=== PATIENT | female | born 1960 | race Caucasian/White ===

== ENCOUNTER → 2018-08-22 | Outpatient (CLI) | payer OTHER ==
[~2018-08-22] MED LIST: DETROL LA4 MG PO; DICLOFENAC SODI75 MG PO; DOXYCYCLINE 10100 MG PO; LEVOTHYROXIN0.175 MG PO; NABUMETONE 500500 M1 PO; TRAMADOL 50 MG50 MG PO; VALIUM5 MG PO
== END ==
LOC: RAD 16:33
DX: M25.552 Pain in left hip (principal); M25.551 Pain in right hip; M46.1 Sacroiliitis, not elsewhere classified

== ENCOUNTER → 2018-09-30 | Outpatient (CLI) | payer OTHER ==
[~2018-09-30] VITALS: Ht 167.6 cm; Wt 115.7 kg
[~2018-09-30] MED LIST changes: +HYDROCHLOROTHIA25 M2 PO; +IRON325 PO; +LOSARTAN POTAS100 MG PO; +SYNTHROID200 MCG PO; +ZANTAC 150MG T150 MG PO
--- NOTE | 2018-10-03 17:56 | P ---
[facility] [place] [address] PROCEDURE REPORT Name: EVELINE HUITRON [facility] #: [id number] Admission: 09/30/18 ������������������ Attend Phys: Jag Enriquez MD Discharge: ������������������ Date of : 56 Report #: [id number] THIS REPORT FOR: //name// CC: Jag Martines MD DATE OF SERVICE: 09/30/2018 BRIEF HISTORY: The patient is a 58-year-old woman with upper abdominal pain, also she does use diclofenac. There is also history of gastric bypass for weight loss. PREOPERATIVE DIAGNOSES: Abdominal pain, use of nonsteroidals. POSTOPERATIVE DIAGNOSES: 1. Retained solids in the stomach consistent with gastroparesis. 2. Mild gastritis. 3. Surgical changes consistent with previous Елена-en-Y gastric bypass. MEDICATIONS: Deep sedation with propofol per anesthesia. SPECIMEN: Biopsies of gastritis. ESTIMATED BLOOD LOSS: 3 mL. PROCEDURE: EGD with biopsy. FINDINGS: Prior to propofol sedation, procedure of upper endoscopy was discussed with the patient as well as potential risks and its complications. She indicates she understands and desires to proceed. DESCRIPTION OF PROCEDURE: With the patient in left decubitus position, the Olympus video endoscope was inserted in the cervical esophagus under direct vision without difficulty. Examination of this organ to its entire length revealed normal esophageal mucosa down to the squamocolumnar junction. Squamocolumnar junction was inspected and noted to be unremarkable. There is no evidence of ulcers, erosions or significant hiatus hernia or mass lesions. The scope was advanced into the stomach. We encountered a moderate amount of retained solid material. It was liquidy and amorphous, but too much particulate material to be able to suction through the scope. Therefore, views of the gastric mucosa were very limited. Obvious ulceration could not be seen. Bleeding was not identified. Biopsies were obtained, very mild gastritis. The surgical anastomosis was widely patent. There was scattered debris down the jejunal limb as far as we passed the scope. There is no evidence of obstruction. No ulcers were seen in jejunum within the limits of the prep. At [facility] [address] [place] [address] PROCEDURE REPORT Name: EVELINE HUITRON Room #: REG [facility] HOMEJersey#: [id number] Admission: 09/30/18 ������������������ Attend Phys: Jag Enriquez MD Discharge: ������������������ Date of : 56 Report #: [id number] that point, the scope was slowly withdrawn and careful circumferential views confirmed the above findings. The patient tolerated the procedure well. CONDITION OF THE PATIENT UPON DISCHARGE: Following procedure, the patient drowsy, aroused, conversant and will be discharged to home when fully ambulatory. INSTRUCTIONS TO THE PATIENT AND FAMILY AT THE TIME OF DISCHARGE: The patient has had complaints of upper abdominal pain. She has been on diclofenac. The exam was limited because of retained food material. I cannot entirely exclude an ulcer. Cautioned her about use of nonsteroidals. She may continue to use ranitidine. Also, suggest low residue diet. We will have her return for followup in the office to further discuss. Gastroparesis may be contributing to some of her symptoms of pain. ��������������������������������������������� <ELECTRONICALLY SIGNED> ���������������������������������������� By: Jag Enriquez MD ��������������������������������������������� 10/03/18 1756 1207 [id number] Jag Enriquez MD /nt
--- NOTE | 2018-10-04 11:07 | PATH ---
[facility] [address] [place] [address] PATHOLOGY RPT PROCEDURE Name: EVELINE DUONG Room #: REG [facility] M.R.#: [id number] ������������������ Admission: 09/30/18 ������������������ Date of : 56 Discharge: Report #: [id number] Path Case #: [id number] [facility] Accession Number: [id number] . 01 Material submitted: . BX GASTRITIS . 01 Clinical history: . Pre-OP DX: GERD Post-OP DX: Gastroparesis, gastritis, s/p gastric bypass . 02 Diagnosis: Gastric mucosa, gastritis, endoscopic biopsy: - Mild chronic inflammation. - Negative for intestinal metaplasia or atrophy. - Negative for Helicobacter pylori (properly-controlled immunohistochemical stain performed). . (IUV:mml; 10/03/2018) QLM/10/03/2018 . 02 Electronically signed: . Marie Mendoza MD, Pathologist NPI- [id number] . 01 Gross description: . Received in formalin labeled "Eveline Duong, BX gastritis," are 3 segments of bran soft tissue measuring 0.9 x 0.6 x 0.2 cm in aggregate dimensions and ranging from 0.4 to 0.6 cm in maximum dimension. The specimen is submitted entirely in cassette A1. (TSD; 09/30/2018) TOB/TOB . 02 Pathologist provided ICD-10: K29.50 . 02 CPT . 842788, C01819 Specimen Comment: A courtesy copy of this report has been sent to Specimen Comment: [phone], . Specimen Comment: Report sent to / DR LINN Specimen Comment: A duplicate report has been generated due to demographic updates. Performed at: 01 [facility] [address] [id number] MD Bam Galvin MD Phone: [phone] [address] [place] [address] PATHOLOGY RPT PROCEDURE Name: EVELINE DUONG Room #: REG [facility].#: [id number] ������������������ Admission: 09/30/18 ������������������ Date of : 56 Discharge: Report #: [id number] Path Case #: [id number] Performed at: [address] [id number] MD Marie Mendoza MD Phone: [phone]
== END | disposition home or self-care (01) ==
LOC: GI 09-22 11:39
DX: K29.50 Unspecified chronic gastritis without bleeding (principal); K31.84 Gastroparesis; K21.9 Gastro-esophageal reflux disease without esophagitis; I10 Essential (primary) hypertension; D64.9 Anemia, unspecified; E03.9 Hypothyroidism, unspecified; Z90.49 Acquired absence of other specified parts of digestive tract; Z98.84 Bariatric surgery status; Z98.890 Other specified postprocedural states; Z79.899 Other long term (current) drug therapy; Z87.891 Personal history of nicotine dependence
CPT/HCPCS: 62110; 62900

== ENCOUNTER 2019-03-23 18:59 | Emergency (ER) | payer OTHER ==
[~2019-03-23] VITALS: Ht 165.1 cm; Wt 108.0 kg
--- NOTE | ~2019-03-23 | EMS ---
[address] [address] EMS Patient Care Report Name: EVELINE HUITRON Room #: DEP ROLLY Newman#: [id number] Admission: 03/23/19 ������������������ Attend Phys: Discharge: 03/23/19 ������������������ Date of : 56 Report #: [id number] THIS REPORT FOR: //name// Report Transmitted: 03/27/2019 09:19 EMS Care Summary [facility] MED-ACT Incident [id number] @ 03/23/2019 18:33 Incident Location [address] [place] [address] Patient EVELINE HUITRON Female, 59 Years 1960 Patient Address [address] [place] [address] Patient History Hypertension,Thyroid Disease, Patient Allergies No known allergies, Patient Medications Zantac, Synthroid, Hydrochlorothiazide (Hctz), Chief Complaint right shoulder pain Disposition Transported No Lights/Carlos Dispatch Reason Falls Transported To [facility] Narrative [id number] [place] [facility] [place] reported injuries after a fall. Pt reported that she was walking in [facility] when she tripped and fell [address] [address] EMS Patient Care Report Name: EVELINE HUITRON Room #: DEP Trent#: [id number] Admission: 03/23/19 ������������������ Attend Phys: Discharge: 03/23/19 ������������������ Date of : 56 Report #: [id number] to the stone floor. Pt denied any head trauma, loss of consciousness, neck or back pain. Pt c/o right shoulder pain that radiates down into wrist. Pt requested EMS transport to ED for evaluation. Pt presented lying prone on floor of [facility]. Pt alert and oriented, answering questions appropriately and without difficulty. PE as documented. ABC intact, PE, HPI-> pt was rotated onto sheet supporting her right shoulder and lifted to cot-> unit, VS, [facility] contacted. Pt reported no changes during transport. Pt placed in room 11 upon arrival and report given to RN. Initial Vitals @18:41P: 62,R: 16,BP: 138/90,Pain: 2/10,GCS: 15,SpO2: 97,Revised Trauma: 12, @18:53P: 64,R: 16,BP: 136/76,Pain: 2/10,GCS: 15,SpO2: 98,Revised Trauma: 12, Assessments @18:41MENTAL:Person Oriented,Time Oriented,Place Oriented,Event Oriented,SKIN:HEENT:Head/Face: No Abnormalities,Neck/Airway: No Abnormalities,LUNG SOUNDS:General: No Abnormalities,ABDOMEN:General: No Abnormalities,PELVIS//GI:EXTREMITIES:Right Arm: Other,Left Arm: No Abnormalities,Left Leg: No Abnormalities,Right Leg: No Abnormalities,PULSE:Radial: 2+ Normal,NEURO:No Abnormalities, Impression Injury Timeline 18:32,Call Received 18:32,Psap Call 18:33,Dispatched 18:34,En Route 18:37,On Scene 18:39,At Patient 18:41,BP: 138/90 M,PULSE: 62,RR: 16 R,SPO2: 97 Ox,ETCO2: ,BG: ,PAIN: 2,GCS: 15, 18:46,Depart Scene 18:53,BP: 136/76 M,PULSE: 64,RR: 16 R,SPO2: 98 Ox,ETCO2: ,BG: ,PAIN: 2,GCS: 15, 18:56,At Destination 19:13,Call Closed Disclaimer v1.1 Copyright 2019 [employer] This EMS Care Summary contains data elements from the applicable legal record (which may be displayed differently). It is designed to provide pertinent information for the following purposes: continuity of care, clinical quality, and state data reporting. The complete legal record is available to ED staff [address] [address] EMS Patient Care Report Name: EVELINE HUITRON Room #: DEP ROLLY Newman#: [id number] Admission: 03/23/19 ������������������ Attend Phys: Discharge: 03/23/19 ������������������ Date of : 56 Report #: [id number] and administrators of the receiving hospital in [employer] Patient Tracker. All data is provided "as is."
[2019-03-23] MEDS ORDERED: TYLENOL EXTRA500 MG PO (20:02)
[2019-03-23 20:22] VITALS: BP 121/51
== END 2019-03-23 20:22 | disposition home or self-care (01) ==
LOC: ER 18:59
DX: S20.211A Contusion of right front wall of thorax, initial encounter (principal); M25.511 Pain in right shoulder; I10 Essential (primary) hypertension; K21.9 Gastro-esophageal reflux disease without esophagitis; E03.9 Hypothyroidism, unspecified; Z90.49 Acquired absence of other specified parts of digestive tract; Z98.84 Bariatric surgery status; Z86.2 Personal history of diseases of the blood and blood-forming organs and certain disorders involving the immune mechanism; Z98.890 Other specified postprocedural states; W18.39XA Other fall on same level, initial encounter; Y93.89 Activity, other specified; Y92.26 Movie house or cinema as the place of occurrence of the external cause; Y99.8 Other external cause status

== ENCOUNTER → 2019-03-30 | Outpatient (CLI) | payer OTHER ==
[~2019-03-30] MED LIST changes: +TYLENOL EXTRA500 MG PO
== END ==
LOC: NUC 02:11
DX: Z13.820 Encounter for screening for osteoporosis (principal); M81.0 Age-related osteoporosis without current pathological fracture; M85.852 Other specified disorders of bone density and structure, left thigh; M85.851 Other specified disorders of bone density and structure, right thigh; Z78.0 Asymptomatic menopausal state

== ENCOUNTER → 2019-06-15 | Outpatient (CLI) | payer OTHER | LOC: MRI 10:21 | DX: S43.431A Superior glenoid labrum lesion of right shoulder, initial encounter (principal); S46.091A Other injury of muscle(s) and tendon(s) of the rotator cuff of right shoulder, initial encounter; M19.011 Primary osteoarthritis, right shoulder; X58.XXXA Exposure to other specified factors, initial encounter; Y93.89 Activity, other specified; Y92.89 Other specified places as the place of occurrence of the external cause; Y99.8 Other external cause status ==

== ENCOUNTER → 2019-07-17 | Outpatient (CLI) | payer OTHER | LOC: RAD 12:47 | DX: M47.816 Spondylosis without myelopathy or radiculopathy, lumbar region (principal); M41.86 Other forms of scoliosis, lumbar region; M43.8X6 Other specified deforming dorsopathies, lumbar region; Z90.49 Acquired absence of other specified parts of digestive tract ==

== ENCOUNTER → 2019-09-11 | Outpatient (CLI) | payer OTHER | LOC: MRI 10:10 | DX: M51.36 Other intervertebral disc degeneration, lumbar region (principal); M48.061 Spinal stenosis, lumbar region without neurogenic claudication; M41.86 Other forms of scoliosis, lumbar region; M25.78 Osteophyte, vertebrae ==

== ENCOUNTER → 2019-10-18 | Outpatient (CLI) | payer OTHER | LOC: SJCVCIMAG 10:22 | DX: I08.1 Rheumatic disorders of both mitral and tricuspid valves (principal); I10 Essential (primary) hypertension; Z79.899 Other long term (current) drug therapy ==

== ENCOUNTER → 2019-11-06 | Outpatient (CLI) | payer OTHER ==
[~2019-11-06] VITALS: Ht 167.6 cm; Wt 102.1 kg
[~2019-11-06] MED LIST changes: +CALCIUM + VITA1 EACH PO; +CALTRATE 600 +1 EAC1 PO; +COZAAR 25 MG TA25 M1 PO; +EVISTA60 MG PO; +LEVO-T100 MCG PO; -LOSARTAN POTAS100 MG PO; +OMEPRAZOLE40 MG PO; +PRESERVISION A1 EAC2 PO; -SYNTHROID200 MCG PO; +TIROSINT88 MCG PO; +TURMERIC500 M2 PO
--- NOTE | ~2019-11-06 | HPC ---
[facility] [place] [address] PAIN MANAGEMENT CONSULTATION Name: EVELINE HUITRON Room #: REG DELMI Jorge.#: [id number] Admission: 11/06/19 Attend Phys: Qasim Parker MD Discharge: Date of : 56 Report #: [id number] THIS REPORT FOR: cc: Rey Martines,Qasim Campbell MD ~ CC: Qasim Martines MD DATE OF SERVICE: 11/06/2019 CHIEF COMPLAINT: Low back pain without radiation. HISTORY OF PRESENT ILLNESS: The patient is a pleasant 59, I am seeing today at the request of Dr. Martines. She has had chronic pain in her low back that is increasing in severity over the last year. She scores her intensity is 6-7/10. She denies any symptoms whatsoever into her legs. Pain is worse with standing and weightbearing activities, any lifting or carrying. She does get some relief with lying down or sitting. She describes it as an ache, sharp, gnawing constant pain. MEDICATIONS: Hydrochlorothiazide, levothyroxine, raloxifene, Detrol-LA, losartan, and omeprazole. ALLERGIES: None. SUPPLEMENTS: Caltrate, iron tablets, turmeric, preserve vision and AREDS 2. REVIEW OF SYSTEMS: Significant for blurred vision, frequent cough, shortness of breath, wheezing, loss of appetite, frequent diarrhea, rectal bleeding, difficulty with urinary stream, memory loss, confusion, depression, and insomnia. PAST MEDICAL HISTORY: Gastroesophageal reflux, arthritis, hypothyroidism, hyperlipidemia, obesity, and rosacea. PAST SURGICAL HISTORY: Cholecystectomy, gastric bypass, and umbilical hernia repair. FAMILY HISTORY: Positive for father with coronary artery disease and mother with lupus. SOCIAL HISTORY: She denies use of tobacco, quitting in 1995. She denies use of alcohol. [facility] [address] [place] [address] PAIN MANAGEMENT CONSULTATION Name: EVELINE HUITRON Rahul Room #: REG DELMI GrayShena#: [id number] Admission: 11/06/19 Attend Phys: Qasim Parker MD Discharge: Date of : 56 Report #: [id number] PHYSICAL EXAMINATION: GENERAL: Pleasant female, alert and oriented. She gives a good history. VITAL SIGNS: Blood pressure is 111/51, heart rate 89, respirations 20, and O2 sat 98%. NECK: Supple. CHEST: Clear. CARDIAC: Rhythm was regular. I could not appreciate a murmur, although she has been told that she has a "leaky valve." ABDOMEN: Obese. MUSCULOSKELETAL: Her gait is antalgic. Examination of the spine reveals slight rotational scoliosis. This is also seen on the MRI and noted. The curvature centered at L3-L4. She has pain with rotational movements and lateral tilt, but minimal pain with back extension. Most notable on her spinal exam is a lack of pain and tenderness along the axial spine and significant bilateral sacroiliac joint tenderness. In the supine position, there is pain in the sacroiliac joints with BONIFACIO testing. No pain in the hips. IMAGING STUDIES: X-rays reviewed show degenerative disk disease and lumbar spondylosis, but no evidence of central canal stenosis or neural foraminal narrowing of the significant nature. IMPRESSION: Sacroiliac joint pain, bilateral. The exam and history correlate with sacroiliac joint as the primary pain generator. Injections may be both therapeutic and diagnostic. Preauthorization will be required. I have asked for bilateral sacroiliac joint injections, which will be performed with small amount of triamcinolone at followup visit. Procedure was explained, risks, and benefits. We will plan to see her back in the pain clinic as soon as we have received preauthorization from her insurance company to go forward. I did discuss the importance of remaining active and exercise as an important tool and managing sacroiliac joint pain. Follow up exercise will be provided based upon the results of her therapeutic/diagnostic injections. By: 1620 1706 Qasim Parker MD /nt
[2019-11-06 09:21] VITALS: BP 111/51
--- NOTE | 2019-11-06 10:03 | NUR ---
Pain Clinic Assessment: 1. History of Osteoarthritis: Left Lower Extremity Right Lower Extremity History of Rheumatoid Arthritis: Not Applicable 2. Height: 5 ft. 6 in. 167.6 cm. Weight: 225.0 lb. oz. 102.060 kg. Patient's BMI: 36.3 3. Vital Signs: BP: 111/51 Pulse: 89 Resp: 20 Temp: 02 Sat: 98 ECG Mon: 4. Pain Intensity: 6-7 5. Fall Risk: Dizziness: Y Needs help standing or walking: N Fallen in the last 3 months: N Fall risk comments: 6. Patient on Blood Thinner: None 7. History of Hypertension: Y 8. Opioid Therapy greater than 6 weeks: N Opiate Contract Signed: 9. Risk Assessment Tool Provided: Opioid Risk Tool 10. Functional Assessment Tool: LOW 11. Recreational Drug Use: Never Drug Type: Tobacco Use: Former Smoker Tobacco Type: Cigarettes Amount or Packs/day: 1-2 How Many Years: 15 Alcohol Use: Yes Frequency: Monthly Quant: 1-2
== END ==
LOC: PAIN 06:52
DX: M54.5 Low back pain (principal); M25.50 Pain in unspecified joint; Z91.048 Other nonmedicinal substance allergy status; Z88.5 Allergy status to narcotic agent; Z88.8 Allergy status to other drugs, medicaments and biological substances; Z79.899 Other long term (current) drug therapy

== ENCOUNTER → 2019-11-21 | Outpatient (CLI) | payer OTHER ==
[~2019-11-21] VITALS: Ht 167.6 cm; Wt 101.2 kg
[~2019-11-21] MED LIST changes: +LASIX 40 MG TAB40 MG PO
[2019-11-21 08:32] VITALS: BP 113/61
--- NOTE | 2019-11-21 08:42 | NUR ---
Pain Clinic Assessment: 1. History of Osteoarthritis: Left Lower Extremity Right Lower Extremity History of Rheumatoid Arthritis: DENIES 2. Height: 5 ft. 6 in. 167.6 cm. Weight: 223.2 lb. oz. 101.243 kg. Patient's BMI: 36.0 3. Vital Signs: BP: 113/61 Pulse: 90 Resp: 16 Temp: 02 Sat: 100 ECG Mon: 4. Pain Intensity: 6 5. Fall Risk: Dizziness: N Needs help standing or walking: N Fallen in the last 3 months: N Fall risk comments: 6. Patient on Blood Thinner: None 7. History of Hypertension: Y 8. Opioid Therapy greater than 6 weeks: N Opiate Contract Signed: 9. Risk Assessment Tool Provided: 2-low 10. Functional Assessment Tool: 11. Recreational Drug Use: Never Drug Type: Tobacco Use: Former Smoker Tobacco Type: Amount or Packs/day: How Many Years: Alcohol Use: Yes Frequency: Special Occasions Quant:
--- NOTE | 2019-11-21 18:18 | HPC ---
[facility] [place] [address] PAIN MANAGEMENT CONSULTATION Name: EVELINE HUITRON Room #: REG DELMI GrayJossJersey.#: [id number] Admission: 11/21/19 Attend Phys: Qasim Parker MD Discharge: Date of : 56 Report #: [id number] THIS REPORT FOR: cc: Rey Martines,Qasim Campbell MD ~ CC: Qasim Martines MD DATE OF SERVICE: 11/21/2019 Followup visit for low back pain, sacroiliac joint discomfort. The patient returns to pain clinic today for her bilateral sacroiliac injections. I saw her last on 11/06/2019. We received preauthorization to proceed with these injections and we have discussed injections, risks and benefits. I also spoke with her for some time about the importance of ongoing daily exercise. Much of her pain probably is also related to myofascial tension that developed as a result of the underlying pain mechanisms. We talked about Manuel's flexion exercises and other daily exercises that she can do to help get those muscles in motion. I even demonstrated for her some chair exercises. I have reviewed her records from less than 10 days ago. There have been no significant changes. We will proceed today with the epidural injection. On physical examination, she is pleasant, alert and oriented, without signs of overmedication. She is alert and oriented. Her blood pressure 113/61, heart rate 90, respirations 16. Her gait is antalgic. She has range of motion discomfort, tenderness across her sacroiliac joints bilaterally with localized discomfort. IMPRESSION: Bilateral sacroiliac joint dysfunction and pain. PROCEDURE: Bilateral sacroiliac injections under fluoroscopic guidance. After informed consent, she was taken to fluoroscopic suite, placed prone, skin prepped with ChloraPrep. Skin anesthetized over the SI joint, first on the left. A 22-gauge spinal needle was advanced into the sacroiliac joint without difficulty. It was repositioned until an arthrogram was achieved with 0.25 mL of Omnipaque. It was followed by 2 mL of 0.5% bupivacaine and 40 mg of triamcinolone. Needle was removed. I repeated the injection in a mirror image fashion on the right and there were no complications. She tolerated the bilateral injections well. There were no complications from the recovery room. [address] [address] PAIN MANAGEMENT CONSULTATION Name: EVELINE HUITRON Room #: REG CL Trent#: [id number] Admission: 11/21/19 Attend Phys: Qasim Parker MD Discharge: Date of : 56 Report #: [id number] Her pain was reduced at discharge and we will plan to see her back on an as-needed basis sometime in the next 2-3 months. We did stress again the importance of exercise as a long-term need to keep her pain under good control. <ELECTRONICALLY SIGNED> By: Qasim Parker MD 11/21/19 1818 1011 1206 Qasim Parker MD /nt
== END | disposition home or self-care (01) ==
LOC: PAIN 06:47
DX: M53.3 Sacrococcygeal disorders, not elsewhere classified (principal); G89.29 Other chronic pain; Z98.890 Other specified postprocedural states; Z79.899 Other long term (current) drug therapy

== ENCOUNTER 2020-03-04 16:15 | Inpatient (IN) | payer OTHER ==
[~2020-03-04] VITALS: Ht 167.6 cm; Wt 101.1 kg
[2020-03-04 16:24] VITALS: BP 87/40
[2020-03-04] MEDS ORDERED: DULOXETINE HCL60 MG PO (16:39)
[2020-03-04] MEDS ORDERED: METAXALONE800 MG PO (16:40)
[2020-03-04 16:54] LABS: BASOPHILS 0.7 % (0.0-2.0); EOSINOPHILS 0.2 % (0.0-3.0); HEMOGLOBIN 8.1 gm/dL (12.0-15.0); MCHC 31.2 g/dL (28.0-37.0); MCV 70.7 fL (80.0-100.0); MONOCYTES 5.4 % (1.0-8.0); PLATELET COUNT 311 thou/uL (150-400); POLYS 88.7 % (36.0-66.0); RBC 3.68 mil/uL (4.20-5.00); RDW 17.9 % (10.5-14.5); WBC 7.9 thou/uL (4.0-11.0)
[2020-03-04 16:55] LABS: ANION GAP 9 mmol/L (7-16); BUN 22 mg/dL (7-18); CALCIUM 7.9 mg/dL (8.5-10.1); CHLORIDE 102 mmol/L (98-107); CO2 25 mmol/L (21-32); CREATININE 1.4 mg/dL (0.6-1.0); GLUCOSE 133 mg/dL (74-106); POTASSIUM 3.8 mmol/L (3.5-5.1); SODIUM 136 mmol/L (136-145)
[2020-03-04 17:04] LABS: MAGNESIUM 1.6 mg/dL (1.8-2.4); TROPONIN-I <0.06 ng/mL (<0.06)
[2020-03-04 17:57] LABS: ANISOCYTOSIS 1+; MACROCYTES FEW; MICROCYTES FEW
[2020-03-04 17:58] LABS: POIKILOCYTOSIS SLIGHT; POLYCHROMASIA OCCASIONAL; SCHISTOCYTES OCCASIONAL
[2020-03-04 17:59] LABS: HYPOCHROMASIA SLIGHT
[2020-03-05 03:23] LABS: ABSOLUTE NEUTROPHILS 3.8 thou/uL (1.4-8.2); BASOPHILS 0.1 % (0.0-2.0); EOSINOPHILS 1.2 % (0.0-3.0); HEMATOCRIT 22.9 % (37.0-47.0); LYMPHOCYTES 16.9 % (24.0-44.0); MCH 21.7 pg (26.0-34.0); MCHC 30.7 g/dL (28.0-37.0); MCV 70.6 fL (80.0-100.0); MONOCYTES 8.9 % (1.0-8.0); PLATELET COUNT 259 thou/uL (150-400); POLYS 72.9 % (36.0-66.0); RBC 3.25 mil/uL (4.20-5.00); RDW 17.7 % (10.5-14.5); WBC 5.2 thou/uL (4.0-11.0)
[2020-03-05 03:39] LABS: CALCIUM 7.9 mg/dL (8.5-10.1); CREATININE 1.3 mg/dL (0.6-1.0); POTASSIUM 3.3 mmol/L (3.5-5.1)
--- NOTE | 2020-03-05 08:18 | EKG ---
[facility] [place] [address] ELECTROCARDIOGRAM REPORT Name: EVELINE HUITRON Room #: 170-4 ADM IN M.R.#: [id number] Admission: 03/04/20 Attend Phys: Frederick Root MD Discharge: Date of : 56 Report #: [id number] THIS REPORT FOR: cc: Rey Martines,Trell Chua MD [facility] THIS REPORT FOR: //name// [facility] ED Test Date: 2020-03-04 Test Time: 16:28:07 Pat Name: EVELINE HUITRON Department: Room: [facility] Gender: F Director Of Retention: TIMOTHY : 1960 Requested By: Wilner Jay Order Number: [id number] MD: Trell Oliva Measurements Intervals [place] Rate: 80 P: 32 LA: 144 QRS: -3 QRSD: 109 T: 15 QT: 389 QTc: 449 Interpretive Statements Sinus rhythm Abnormal R-wave progression, early transition Compared to ECG 10/06/2011 06:51:15 No significant change was found Electronically Signed On 03-05-2020 8:18:47 CDT by Trell Oliva [email or web address] <ELECTRONICALLY SIGNED> By: Trell Oliva MD, [facility] 03/05/20 0818 1628 1628 Trell Oliva MD, [facility] /EPI
[2020-03-05 12:05] VITALS: BP 101/51; BP 106/48; BP 107/52; BP 95/48
[2020-03-05 12:40] VITALS: BP 101/51
--- NOTE | 2020-03-05 13:00 | NUR ---
ATTEMPTED TO CALL REPORT IN CCU. NURSE UNAVAILABLE AND WILL CALL BACK.
--- NOTE | 2020-03-05 13:16 | NUR ---
DR RIZVI PAGED REQUESTING FOR ORDER CHANGE WITH COVID TESTING TO PERFORM ANTIGEN TEST. DR RIZVI APPROVED FOR ORDER CHANGE
[2020-03-05 14:00] VITALS: BP 102/47
--- NOTE | 2020-03-05 14:30 | NUR ---
ASSUMED CARE OF PT APPROX 1420 TO DO ADMISSION. A&0X4, WEAK, WALKS SLOW HOLDING ON TO ITEMS YET D/T ORIENTATION WILL GET BSC CLOSE BY SO SHE CAN USE THE TOILET WITHOUT WAITING A LONG TIME D/T OTHER ACTIVITIES. PT C/O PAIN ON HER BUTTOCKS, FEELS BRUISED, NO SKIN OTHERS OTHER THAN HER BEING A HARD IV STICK, SHE STATES IT'S FROM ED FINDING IVS AND BRUISING FROM ANIMALS. SEE SEPARATE INTERVENTIONS FOR ASSESSMENTS. HAS RBC TRANSFUSING WELL MAINTENANCE FLUIDS AND PROTONIX, WILL RUN THE LATTER TWO WITH RBCS DONE. PT STATES IN ED TWO DAYS AND BACK HURTS FROM LYING FLAT. GAVE ROOM AND CALL LIGHT DEMO. WILL CONTINUE TO MONITOR
[2020-03-05] MEDS ORDERED: TYLENOL325 MG PO (14:35)
[2020-03-05 14:41] VITALS: BP 122/99
--- NOTE | 2020-03-05 14:55 | NUR ---
BLOOD TRANSFUSION: CANNOT EDIT PRIOR DEPARTMENTS INITIAL BLOOD TRANFUSION: VS ENTERED, PT FLUSHED AND PROTONIX RESTARTED, VS WNL, B/P'S BETTER ALTHOUGH SHE STATES THEY ARE NORMALLY LOW 100S
[2020-03-05 15:43] LABS: HEMATOCRIT 28.3 % (37.0-47.0); HEMOGLOBIN 8.8 gm/dL (12.0-15.0)
[2020-03-05 20:20] VITALS: BP 116/70
[2020-03-06] VITALS (9 sets, daily range): BP systolic 75–138; BP diastolic 38–80
--- NOTE | 2020-03-06 04:40 | NUR ---
Assumed pt care at 1900. Pt is alert and oriented. No sign of distress noted in pt. Denies any pain. Pt is stable and laying in bed. No sign of bleeding noted. Call light within reach. Fall precaution in place. Assessment completed and documented. Scheduled meds administered to pt. Pt is stable. Nurising POC in place. No acute events overnight. Continue to monitor. No further needs at this time.
[2020-03-06 05:44] LABS: HEMATOCRIT 25.7 % (37.0-47.0); HEMOGLOBIN 7.9 gm/dL (12.0-15.0); MCH 22.5 pg (26.0-34.0); MCHC 30.6 g/dL (28.0-37.0); MCV 73.5 fL (80.0-100.0); RBC 3.5 mil/uL (4.20-5.00); RDW 19.3 % (10.5-14.5); WBC 4.7 thou/uL (4.0-11.0)
[2020-03-06 05:54] LABS: ALBUMIN 1.7 g/dL (3.4-5.0); CALCIUM 7.6 mg/dL (8.5-10.1); CREATININE 0.9 mg/dL (0.6-1.0); POTASSIUM 3.7 mmol/L (3.5-5.1)
--- NOTE | 2020-03-06 18:08 | NUR ---
ASSESSMENT CHARTED. PT ALERT AND ORIENTED. VSS. NPO AFTER MIDNIGHT FOR COLONOSCOPY AND EGD IN AM. COLONOSCOPY PREP STARTED.
[2020-03-07 03:40] VITALS: BP 89/44
[2020-03-07 05:36] LABS: HEMATOCRIT 25.1 % (37.0-47.0); HEMOGLOBIN 7.8 gm/dL (12.0-15.0); MCH 22.8 pg (26.0-34.0); MCV 73.6 fL (80.0-100.0); RBC 3.41 mil/uL (4.20-5.00); RDW 19.9 % (10.5-14.5)
--- NOTE | 2020-03-07 06:42 | NUR ---
Assessment as documented.pt been resting in no acute distress.A/ox4.Cont on bowel prep for colonoscopy/EGD.Pt still passing loose stools,not clear yet. was notified for recommendation and instructed patient to continue with the rest of the prep since her procedure is scheduled in the afternoon.Pt updated on DOCTORS recommendation.no concerns voiced.will cont to monitor per poc.
[2020-03-07 08:30] VITALS: BP 100/64; BP 102/53; BP 85/53
[2020-03-07 11:30] VITALS: BP 117/67
[2020-03-07 16:25] VITALS: BP 112/65
--- NOTE | 2020-03-07 17:37 | NUR ---
PT HAD EGD AND COLONOSCOPY TODAY. NEW ORDERS NOTED. ASSESSMENT CHARTED.
--- NOTE | 2020-03-07 17:59 | NUR ---
patient admits with anemia, gi bleed. Patient with colonscopy that noted colon mass. Patient resides at home with spouse. She has one dtr. She has steps to bedroom and bath with partial railing. Patient reports spouse is putting in second railing. 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 She reports dizzy cryptanalyst and fell. Patient may benefit from HH at ca. Gave her list to review of options. PCP Dr Martines.
[2020-03-07 20:22] VITALS: BP 108/62
[2020-03-08 04:15] VITALS: BP 90/58
--- NOTE | 2020-03-08 04:39 | NUR ---
SLEPT MOST OF SHIFT. UP WITH ASSIST OF ONE TO BSC NEEDED. DENIES COMPLAINTS OF PAIN OR SHORTNESS OF AIR. WORKING ON PLAN OF CARE FOR NOC. PROGRESSING SLOWLY TOWARDS DISCHARGE GOALS. STATES SHE WILL TALK WITH ABOUT THE CANCER MASS FOR YESTERDAY DURING HER PROCEDURE. SHE IS IN [facility] AT THIS TIME. AWAITING FOR DOCTORS TO COME SEE HER TODAY. CONTINUE TO ASSES CLOSELY.
[2020-03-08 05:38] LABS: ALBUMIN 1.8 g/dL (3.4-5.0); CALCIUM 7.6 mg/dL (8.5-10.1); POTASSIUM 4.1 mmol/L (3.5-5.1); TOTAL BILIRUBIN 0.3 mg/dL (0.2-1.0); TOTAL PROTEIN 4.4 g/dL (6.4-8.2)
[2020-03-08 08:34] LABS: HEMATOCRIT 25.9 % (37.0-47.0); MCH 22.7 pg (26.0-34.0); MCHC 30.8 g/dL (28.0-37.0); MCV 73.7 fL (80.0-100.0); RBC 3.51 mil/uL (4.20-5.00); RDW 19.7 % (10.5-14.5); WBC 5.6 thou/uL (4.0-11.0)
[2020-03-08 08:38] VITALS: BP 95/53
[2020-03-08 12:45] VITALS: BP 95/54
--- NOTE | 2020-03-08 18:53 | NUR ---
ASSESSMENT CHARTED - MEDS PER SEP - NO CO'S OF PAIN OR NASUEA. MENDEL DIET AND FLIUDS. PT STAUS CHANGE TO MED/ SURG TODAY. SEEN BY ONCOLOGY AND SURGERY TODAY - TO HAVE SURGERY ON WEDNESDAY. UP TO THE BSC. NO CO'S AT THE PRESENT TIME.
[2020-03-08 19:15] VITALS: BP 121/59
[2020-03-09 04:00] VITALS: BP 104/59; BP 108/53; BP 84/50
--- NOTE | 2020-03-09 07:45 | NUR ---
SLEPT MOST OF SHIFT. WORKING ON GOALS AND PLAN OF CARE FOR NOC. PROGRESSING TOWARDS GOALS FOR SURGERY WEDNESDAY. UP TO COMODE WITHOUT PROBLEMS. CONTINUE TO ASSES CLOSELY.
[2020-03-09 08:00] VITALS: BP 74/44; BP 84/42; BP 92/54
[2020-03-09 12:00] VITALS: BP 109/73
--- NOTE | 2020-03-09 17:57 | NUR ---
ASSESSMENT CHARTED. PT ALERT AND ORIENTED. DENIED HAVING PAIN. TOLERATED REGULAR DIET WELL. NO CONCERNS AT THIS TIME. WILL CONTINUE TO MONITOR.
[2020-03-09 20:00] VITALS: BP 118/59; BP 120/38; BP 124/72
--- NOTE | 2020-03-10 03:22 | NUR ---
SLEEPING WITHOUT COMPLAINTS THIS SHIFT. UP TO COMODE WITH OUT ASSISTANCE. PATIENT STEADY ON FEET. AWAITING SURGERY WEDNESDAY. REINFORCED TO PATIENT AND LAST NOC ONLY DESIGNATED VISITOR MAY COME DURING SURGERY TIME. SUGGESTED DAUGHTER BE AVAILABLE PER PHONE FOR POST SURGERY UPDATE FROM DOCTOR. PATIENT UNDERSTANDS. WORKING ON GOALS AND PLAN OF CARE FOR NOC. PROGRESSING TOWARDS SURGERY WEDNESDAY. NO BLEEDING NOTED. CONTINUE TO ASSES CLOSELY.
[2020-03-10 04:00] VITALS: BP 111/57
[2020-03-10 05:48] LABS: HEMATOCRIT 22.5 % (37.0-47.0); MCH 22.7 pg (26.0-34.0); MCV 73.4 fL (80.0-100.0); RBC 3.06 mil/uL (4.20-5.00); RDW 19.6 % (10.5-14.5); WBC 3.8 thou/uL (4.0-11.0)
[2020-03-10 06:05] LABS: CALCIUM 7.2 mg/dL (8.5-10.1); CREATININE 1.1 mg/dL (0.6-1.0); MAGNESIUM 1.5 mg/dL (1.8-2.4); POTASSIUM 3.7 mmol/L (3.5-5.1)
[2020-03-10 08:30] VITALS: BP 102/51; BP 105/61; BP 112/69
[2020-03-10 13:03] VITALS: BP 112/65; BP 122/57
[2020-03-10 16:30] VITALS: BP 135/86
[2020-03-10 17:10] LABS: HEMATOCRIT 32.9 % (37.0-47.0)
[2020-03-10 17:14] LABS: HEMOGLOBIN 10.3 gm/dL (12.0-15.0)
--- NOTE | 2020-03-10 18:47 | NUR ---
PT RECEIVED 1 UNIT OF BLOOD THIS SHIFT. NPO AFTER MIDNIGHT.
[2020-03-10 19:34] VITALS: BP 111/79
[2020-03-11] VITALS (12 sets, daily range): BP systolic 11–142; BP diastolic 43–66
--- NOTE | 2020-03-11 04:30 | NUR ---
ASSUMED CARE 1900. PT ALERT AND ORIENTED. VITALS STABLE. PT NPO FOR COLECTOMY THIS AM. BOWEL PREP COMPLETE. DENIES CHEST PAIN, NAUSEA OR VOMITING. PT NOT MONITORED ON TELE. PT DENIES ANY CONCERNS. WILL CONTINUE WITH POC.
[2020-03-11 05:45] LABS: HEMATOCRIT 28.3 % (37.0-47.0); HEMOGLOBIN 8.7 gm/dL (12.0-15.0); MCH 23.5 pg (26.0-34.0); MCHC 30.7 g/dL (28.0-37.0); MCV 76.7 fL (80.0-100.0); RBC 3.69 mil/uL (4.20-5.00)
--- NOTE | 2020-03-11 07:03 | HC ---
[facility] [address] CONSULTATION Name: EVELINE HUITRON Rahul Room #: 213-P ADM IN M.R.#: [id number] Admission: 03/04/20 Attend Phys: Ministerio Chavez Discharge: Date of : 56 Report #: [id number] THIS REPORT FOR: cc: Rey Martines,Qasim Pedroza MD ~ CC: James James REASON FOR CONSULTATION: Mass on colonoscopy suspicious for colon cancer. Note, this is in the hepatic flexure. HISTORY OF PRESENT ILLNESS: The patient was dizzy and lightheaded and also been noted to be iron deficient. A colonoscopy by Dr. Scooby Lr from the mass, currently path is pending. The patient had a CAT scan that showed no obvious metastatic disease in the liver or lymph nodes. Lab on admission showed hemoglobin of about 8.1 with an MCV of 70.7, in the past it had been in the 80s. Platelets are 243. White count normal, liver functions, creatinine normal. CEA is pending. The patient denies recent nausea, vomiting, fevers, chills, new arm or leg swelling, had had some weight loss, undetermined etiology, may be related to COVID, unsure. PAST MEDICAL HISTORY: Notable for Елена-en-Y gastric bypass in 2000, right foot surgery, hernia repair, cholecystectomy, hypothyroidism, hypertension, mood disorder, recent iron deficiency anemia, also a leaky valve. SOCIAL HISTORY: She [place] [employer] [place], has dual citizenship, has lived here in [place] for, I think she said early . She is retired from working for the [employer], [employer], stopped smoking 20 years ago, maybe alcohol 1 per month or 1 for [address]. FAMILY HISTORY: Father had heart failure. Mother had lupus. Sister who related to street drugs. One daughter is alive and well. One cousin is with breast cancer. Last colonoscopy was 8 years ago. MEDICATIONS: Currently include pantoprazole 40 b.i.d., levothyroxine 200 mcg daily, duloxetine 60 daily, iron 325 daily, and Zofran p.r.n. PHYSICAL EXAMINATION: [facility] [address] [place] [address] CONSULTATION Name: EVELINE HUITRON Room #: 213-P [facility] IN ..#: [id number] Admission: 03/04/20 Attend Phys: Ministerio Chavez Discharge: Date of : 56 Report #: [id number] GENERAL: The patient appears her stated age. VITAL SIGNS: Height is 5 feet 6 inches, 167.6 cm. Weight 228 pounds or 103.7 kilograms. Blood pressure is 90/50, respirations 18, O2 sat 97%, pulse 92, temperature 98.4 orally. MOOD: The patient is alert and pleasant, conversant. NEUROLOGIC: Speech and thought pattern normal. Moving all extremities. HEENT: Face is symmetrical. LUNGS: Clear, symmetric and unlabored respirations without rhonchi, rales or wheezes. HEART: Regular rate. LYMPHATICS: No enlarged lymph nodes in the supraclavicular, cervical, axillary or inguinal epidural region. ABDOMEN: Quite obese. No organomegaly. Nontender. EXTREMITIES: Without clubbing or cyanosis. There may be some very trace edema. SKIN: The patient has few ecchymoses red junior; she says she has very thin skin and this is not new for her. ASSESSMENT AND PLAN: 1. Probable colon cancer. Await final path report. Surgeon is yet to see the patient. We would like to see the patient after surgery and path reports available, so we can discuss whether there is a role for adjuvant chemotherapy or not. 2. Iron deficiency. The patient is on oral iron. We will see how well she absorbs whether hemoglobin improves and also give her IV iron. 3. Hypertension. Meds per others. 4. Hypothyroid, replaced. 5. Mood disorder. Continue duloxetine. 6. Leaky heart valve. Follow up per Dr. Mackay. We will follow with you. <ELECTRONICALLY SIGNED> By: Qasim Bustillos MD 03/11/20 0703 [id number] [id number] Qasim Bustillos MD /nt
--- NOTE | 2020-03-11 17:30 | NUR ---
ASSESSMENT CHARTED. PT ALERT AND ORIENTED THIS AM. HAD SURGERY TODAY. HAS 5 LAP SITE WITH DEMABOND. NEW ORDERS NOTED. NO CONCERNS AT THIS TIME. WILL CONTINUE TO MONITOR.
[2020-03-12] VITALS: BP 103/53
[2020-03-12 04:00] VITALS: BP 108/57
--- NOTE | 2020-03-12 04:16 | NUR ---
ASSUMED CARE 1900. PT S/P COLECTOMY. ALERT AND ORIENTED. VITALS STABLE. REPORTS SORENESS TO THE LAP SITES, THAT ARE DRY AND CLEAN AND INTACT. [facility] CATHETER IN PLACE. DENIES CHEST PAIN. NO OTHER CONCERNS. WILL CONTINUE TO FOLLOW.
[2020-03-12 05:22] LABS: HEMATOCRIT 27.2 % (37.0-47.0); HEMOGLOBIN 8.4 gm/dL (12.0-15.0); MCV 77.3 fL (80.0-100.0); RBC 3.52 mil/uL (4.20-5.00); RDW 22.4 % (10.5-14.5); WBC 6.2 thou/uL (4.0-11.0)
[2020-03-12 06:11] LABS: ALBUMIN 1.6 g/dL (3.4-5.0); CALCIUM 7.8 mg/dL (8.5-10.1); CREATININE 1.1 mg/dL (0.6-1.0); MAGNESIUM 1.8 mg/dL (1.8-2.4); PHOSPHORUS 4.7 mg/dL (2.5-4.9); POTASSIUM 4.4 mmol/L (3.5-5.1)
[2020-03-12 08:00] VITALS: BP 111/58
[2020-03-12 16:10] VITALS: BP 122/61
--- NOTE | 2020-03-12 17:58 | NUR ---
ASSESSMENT CHARTED - MEDS PER SEP - PT MENDEL CLEAR LIQUID DIET - IV FLUIDS CONTINUE RATE CHAGED TO 60 CC PER HOUR ORDERED. GIVEN TRAMADOL FOR PAIN X 1 WITH DESIRED RELIEF. PATIENT STATED THAT SHE FELT DIZZY WHEN UP WITH OCC THERAPY AND FEELS THAT IT MAY HAVE BEEN THE PAIN MEDICATION MAKING HER FEEL THIS WAY. WHEN UP TO THE COMMODE THIS EVENING NO CO'S OF BEING DIZZY - [facility] REMOVED THIS AM AT APPOX 1030AM - PT ATTEMPTING TO VOID AT THE PRESENT TIME ON THE COMMODE. INCSIONS TO ABDO REMAIN C/D/I. NO CO'S AT THE PRESENT TIME.
[2020-03-12 20:39] VITALS: BP 110/56
[2020-03-13 03:27] VITALS: BP 93/51
--- NOTE | 2020-03-13 04:42 | NUR ---
ASSUMED CARE 1900. PT ALERT AND ORIENTED. VITALS STABLE. PT UNABLE TO VOID YESTERDAY AFTER FOLETY DC. BLADDER SCAN SHOWED 135 MLS. PT WAS ABLE TO VOID X 1. REPORTS SORENESS AT THE INCISION SITES. TYLENOL X1. NO OTHER CONCERNS AT THE MOMENT. PT VOIDING TO THE BEDIDE COMMODE. PT PROGRESSING TOWARDS GOAL.
[2020-03-13 05:50] LABS: HEMOGLOBIN 7.8 gm/dL (12.0-15.0); MCH 24.3 pg (26.0-34.0); MCHC 31.2 g/dL (28.0-37.0); MCV 77.8 fL (80.0-100.0); RBC 3.21 mil/uL (4.20-5.00); RDW 21.9 % (10.5-14.5); WBC 4.8 thou/uL (4.0-11.0)
[2020-03-13 08:06] VITALS: BP 84/45
[2020-03-13 08:40] VITALS: BP 112/65
--- NOTE | 2020-03-13 10:24 | NUR ---
met with patient to discuss dc planning. discussed HH care. patient with no preference. she is agreeable to [facility] HH care. Referral sent for review. Patient reports feeling better today. she spoke of some difficulty getting off commode. Discussed rehab but patient denies need. she feels home health will be fine. she plans to have buy a commode. she also reports spouse avail at home to assist and her dtr is avail as well.
[2020-03-13 11:41] VITALS: BP 120/61
[2020-03-13 15:00] VITALS: BP 101/46
--- NOTE | 2020-03-13 15:07 | PATH ---
[facility] [place] [address] PATHOLOGY RPT PROCEDURE Name: IdalmisEVELINE Room #: 213-P ADM IN M.R.#: [id number] Admission: 03/04/20 Date of : 56 Discharge: Report #: [id number] Path Case #: [id number] [facility] Accession Number: [id number] . 01 Material submitted: . PART A: stomach - GASTRIC BIOPSY R/O H. PYLORI PART B: hepatic flexure - HEPATIC FLEXURE MASS BIOPSY . 01 Clinician provided ICD-10: N17.9 K92.1 . 01 Clinical history: . ANEMIA, HEME POSITIVE STOOL, SYNCOPE, GI BLEED COLON MASS, GASTRITIS . 02 Diagnosis: A. Gastric mucosa, gastric rule out H. pylori, endoscopic biopsy: - Marked acute gastritis. - Negative for intestinal metaplasia or atrophy. - Negative for Helicobacter pylori (properly controlled immunohistochemical stain performed). . B. Large intestine, hepatic flexure mass, endoscopic biopsy: - INVASIVE MODERATELY DIFFERENTIATED ADENOCARCINOMA, SEE COMMENT. LBQ 03/11/2020 1230 Local . 02 Comment: Dr. Natali Acuna has seen a labor union business representative slide of this case and concurs with my diagnosis. MSI immunohistochemical stains (X4) are ordered on block B1 per the cancer committee protocol. The results of these will be reported in an addendum to follow. . Findings of this case are conveyed to Ms. Yeny Weaver NP for Dr. Lr at 12:10 pm on 03/11/2020. (IUV/db; 03/11/2020) . 02 Addendum: . MICROSATELLITE INSTABILITY REPORT (MSI): . Per the Cancer Committee protocol, mismatch repair (MMR) protein immunohistochemical staining was performed. . Reason for testing:To evaluate for evidence of defective mismatch repair proteins. Method:Immunohistochemical staining for the presence or absence of protein expression of one or more of the following MMR protein markers: MLH1, [address] [address] PATHOLOGY RPT PROCEDURE Name: EVELINE DUONG Room #: 213-P [facility]#: [id number] Admission: 03/04/20 Date of : 56 Discharge: Report #: [id number] Path Case #: [id number] MSH2, MSH6 and PMS2. Tumor type:Invasive adenocarcinoma . Results: MLH1 -Lost MSH2 -Preserved MSH6 -Preserved PMS2 -Lost . Mismatch Repair Status:MMR Deficient (MMR-D) . Interpretation: . [place]: Dr. Natali Acuna. . (MMR-D) The absence of expression for one or more MMR protein markers within tumor cells is suggestive for defective mismatch repair function often associated with microsatellite instability (MSI). MMR testing by IHC is a screening test and MMR-D cases require confirmation and additional workup by molecular based methodologies. Suggest clinical correlation and follow up to establish the need for potential genetic testing, recurrence risk evaluation and treatment options. . These test results are designed for screening purposes only and are useful tools in identifying cancer patients that are more likely to have Velasquez Syndrome related diagnoses. Tests should be interpreted in the context of clinical findings, family history and laboratory data. Abnormal IHC results for MMR protein expression are not considered diagnostic for Velasquez Syndrome. . Professional services performed by [email or web address] at [facility], [address] [place] [address] , [place] [address]. Technical services performed by [facility] at [address] [place] [address], [address], [place] [address]. . (IUV:legal project manager; 03/13/2020) . . LBQ/03/13/2020 Addendum Electronically Signed by Marie Mendoza MD, Pathologist . 02 Electronically signed: . Marie Mendoza MD, Pathologist NPI- [id number] . 01 Gross description: . A. The specimen is received in formalin, labeled "Eveline Duong, gastric biopsy, R/O H. pylori". Received are two segments of pale bran soft tissue ranging in size from 0.3 to 0.4 cm in maximum dimensions. The specimen is [facility] [address] [place] [address] PATHOLOGY RPT PROCEDURE Name: EVELINE DUONG Room #: 213-P [facility] IN M.R.#: [id number] Admission: 03/04/20 Date of : 56 Discharge: Report #: [id number] Path Case #: [id number] submitted entirely in cassette A1. . B. The specimen is received in formalin, labeled "Eveline Lordi, hepatic flexure mass biopsy". Received are six segments of pale bran soft tissue ranging in size from 0.2 to 0.4 cm in maximum dimensions. The specimen is submitted entirely in cassette B1. (CAA; 03/08/2020) QAC/QAC 03/08/2020 1046 Local . 02 Pathologist provided ICD-10: K29.00, C18.3 . 02 CPT . 689004, 733458, E09515, A80667 Specimen Comment: A courtesy copy of this report has been sent to [phone] Specimen Comment: [phone], Specimen Comment: Report sent to ,DR LINN / DR RIZVI Performed at: [address] [facility], [place] [id number] MD Bam Galvin MD Phone: [phone] Performed at: [address] [facility] [address] [id number] MD Marie Mendoza MD Phone: [phone]
--- NOTE | 2020-03-13 15:07 | PATH ---
[facility] [address] [place] [address] PATHOLOGY RPT PROCEDURE Name: PARTH DUONGJACOBO Kay Room #: 213-P ADM IN M.R.#: [id number] Admission: 03/04/20 Date of : 56 Discharge: Report #: [id number] Path Case #: [id number] [facility] Accession Number: [id number] . 01 Material submitted: . colon - RIGHT COLON. Modifiers: right . 01 Clinical history: . ANEMIA, SYNCOPE, GI BLEED OBSTRUCTING CECAL MASS . 02 Diagnosis: Large intestine, terminal ileum and appendix, right colon, laparoscopic hemicolectomy: - INVASIVE MODERATELY DIFFERENTIATED COLONIC ADENOCARCINOMA WITH APPROXIMATELY 10% OF THE TUMOR SHOWING MUCINOUS FEATURES. - TUMOR INVADES THROUGH THE MUSCULARIS PROPRIA INTO SUBSEROSAL ADIPOSE TISSUE. - Margins of resection free of malignancy; closest proximal mucosal margin is 4.6 cm away. - THREE LYMPH NODES SHOWING METASTATIC ADENOCARCINOMA WITH EXTENSIVE MUCINOUS FEATURES (3/25). - Appendix showing complete fibrous obliteration of the tip; negative for malignancy. (IUV:tegan; 03/13/2020) . . Surgical Pathology Cancer Case Summary . Protocol posting date: August 2019 . COLON AND RECTUM: Resection, Including Transanal Disk Excision of Rectal Neoplasms . Procedure ___ Right hemicolectomy . Tumor Site ___ Cecum extending to ileocecal valve . Tumor Size Greatest dimension (centimeters): 9.5 cm . Macroscopic Tumor Perforation ___ Not identified . Histologic Type ___ Adenocarcinoma with mucinous features (approximately 10 percent of the [facility] [address] [place] [address] PATHOLOGY RPT PROCEDURE Name: CATA DUONG Room #: 213-P ADM IN [facility].#: [id number] Admission: 03/04/20 Date of : 56 Discharge: Report #: [id number] Path Case #: [id number] malignancy) . Histologic Grade ___ G2: Moderately differentiated . Tumor Extension ___ Tumor invades through the muscularis propria into subserosal tissue . Margins ___ All margins are uninvolved by invasive carcinoma, high-grade dysplasia, intramucosal adenocarcinoma, and adenoma Margins examined: Distance of invasive carcinoma from closest margin: 4.6 cm Specify closest margin: Proximal margin . Treatment Effect ___ No known presurgical therapy . Lymphovascular Invasion ___ Indeterminate . Perineural Invasion ___ Not identified . Tumor Deposits ___ Not identified . Regional Lymph Nodes . Number of Lymph Nodes Involved: 3 . Number of Lymph Nodes Examined: 25 . Pathologic Stage Classification (pTNM, AJCC 8th Edition) Note: Reporting of pT, pN, and (when applicable) pM categories is based on information available to the pathologist at the time the report is issued. . . Primary Tumor (pT) ___ pT3: Tumor invades through the muscularis propria into subserosal adipose tissues . Regional Lymph Nodes (pN) ___ pN1b: Two or three regional lymph node are positive . Distant Metastasis (pM) (required only if confirmed pathologically in this case) [address] [address] PATHOLOGY RPT PROCEDURE Name: CATA DUONG Room #: 213-P [facility] IN ..#: [id number] Admission: 03/04/20 Date of : 56 Discharge: Report #: [id number] Path Case #: [id number] ___ pMx: Not known [facility] 03/13/2020 [facility] Local . 02 Electronically signed: . Marie Mendoza MD, Pathologist NPI- [id number] . 01 Gross description: . The specimen is received in formalin, labeled "Catajacobo Duong, right colon". Received is a right hemicolectomy specimen consisting of a segment of small bowel measuring 7.5 cm in length ranging in diameter from 2.8 to 4.3 cm contiguous with a segment of colon measuring 14.3 cm in length ranging in diameter from 3.2 to 5.8 cm. Both margins are stapled closed. The serosal surface of the small bowel is pink-purple and smooth in appearance. The serosal surface of the colon is pink-lynn with overlying adhesions. The attached pericolic fat measures up to 6.3 cm in thickness. The mesenteric margin is inked orange. The specimen is opened along the antimesenteric line to reveal light bran mucosa within the small bowel displaying normal to slightly edematous architectural folds. The ileocecal valve is completely overtaken by a light brown to red-brown polypoid mass, which appears to be arising from the cecum, measuring 9.5 x 5.1 cm, which is 4.6 cm from the proximal margin, and 9.7 cm from the distal margin. The opposing serosal and fatty surfaces are inked black. Sectioning reveals the mass to grossly extend through the muscularis propria, grossly approaches the inked fatty surface, and is 6.1 cm from the mesenteric margin. A moderate amount of tattooing is present just distal to the mass. The remainder of the colonic mucosa is light bran and moderately edematous in appearance with normal architectural folds. No additional nodules or lesions are noted grossly. The appendix is present measuring 5.9 cm in length by up to 0.4 cm in diameter and appears grossly unremarkable. The proximal margin of the appendix is inked black. Dissection and palpation of the attached pericolic fat reveals 25 readily identifiable lymph nodes ranging in size from 0.3 to 1.8 cm in maximum dimensions, several of which display tattoo pigment. . Also received within the specimen container is an additional segment of bowel with two stapled margins measuring 1.3 cm in length by 3.5 cm in diameter. Opening the specimen reveals light bran mucosa with normal architectural folds. The specimen is submitted representatively as follows: . A1 proximal margin, en face A2 distal margin, en face A3 perpendicular section through mesenteric margin A4 telephone claims representative section of mass to show relationship with inked fatty surface A5 telephone claims representative section of mass to show relationship with [facility] [address] [place] [address] PATHOLOGY RPT PROCEDURE Name: CATA DUONG Room #: 213-P ADM IN M.R.#: [id number] Admission: 03/04/20 Date of : 56 Discharge: Report #: [id number] Path Case #: [id number] bowel mucosa A6 telephone claims representative section of mass to show relationship with colonic mucosa A7-A10 additional telephone claims representative sections of mass A11 uninvolved small bowel mucosa A12 uninvolved colonic mucosa A13 telephone claims representative sections of appendix, to include proximal margin and bisected tip A14-A17 intact lymph nodes A18 two bisected lymph nodes, one of which is differentially inked A19-A21 one bisected lymph node in each cassette A22 telephone claims representative section of additionally submitted segment of bowel. (CAA; 03/12/2020) QAC/QAC 03/12/2020 1547 Local . 02 Pathologist provided ICD-10: C18.0 . 02 CPT . 747006 Specimen Comment: A courtesy copy of this report has been sent to [phone] Specimen Comment: [phone], Specimen Comment: Report sent to ,DR RIZVI / DR NAYLOR Specimen Comment: DR LINN Performed at: 01 [facility] [place] [address] [facility] [address] [facility] [address], [place] [id number] MD Bam Galvin MD Phone: [phone] Performed at: [address] [facility] [id number] MD Marie Mendoza MD Phone: [phone]
--- NOTE | 2020-03-13 19:30 | NUR ---
assessment as charted. meds as per sep - no co's of pain or nausea. obdulio full liquid diet. up to the bsc with stby / min assist - pt with loose stool this shift. ambulated with phys therapy and up to the recliner for most of the am. incisions to abdo c/d/i. seen by occ therapy this am. into visit with patient. pt with no co's at the present time.
[2020-03-13 20:00] VITALS: BP 111/60
--- NOTE | 2020-03-14 03:16 | NUR ---
Assumed pt care at 1900. Pt is alert and oriented with no sign of distress noted in pt. Pt verbalizes pain and tylenol was administered. Fall precaution in place. Assessment completed and documented. Scheduled meds administered to pt.Continue to monitor. No acute events overnight. No needs at this time.
[2020-03-14 04:12] VITALS: BP 99/56
[2020-03-14 08:10] VITALS: BP 114/52
[2020-03-14 09:16] VITALS: BP 99/56
[2020-03-14 12:05] VITALS: BP 104/62
--- NOTE | 2020-03-14 14:02 | NUR ---
PT DISCHARGING TODAY TO HOME WITH [facility] FAXED DC ORDERS/SUMMARY SPOKE WITH AMANDA IN INTAKE SHE RECEIVED ORDERS AND WILL CALL PT TO SET UP VISITS.
[2020-03-14 14:21] VITALS: BP 99/56
[2020-03-14 14:59] VITALS: BP 99/56
--- NOTE | 2020-03-14 15:30 | NUR ---
Pt ate regular diet for lunch without difficulty. Reviewed discharge instructions. Pt discharged with her . Taken down to car by community health advocate, Louise. See discharge instructions.
== END 2020-03-14 16:30 | disposition home health service (06) | DRG 329 ==
LOC: ER 16:15 → EROBS 19:12 → 2N 19:12
PROVIDERS: Anesthesiology; Emergency Medicine; Nurse Practitioner; Nurse Practitioner Family; Surgery; ADMIT Hospitalist; ATTEND Hospitalist
DX: C18.9 Malignant neoplasm of colon, unspecified (principal); E43 Unspecified severe protein-calorie malnutrition; K57.31 Diverticulosis of large intestine without perforation or abscess with bleeding; N17.0 Acute kidney failure with tubular necrosis; K56.690 Other partial intestinal obstruction; I38 Endocarditis, valve unspecified; R19.00 Intra-abdominal and pelvic swelling, mass and lump, unspecified site; D50.8 Other iron deficiency anemias; I95.9 Hypotension, unspecified; E03.9 Hypothyroidism, unspecified; E83.42 Hypomagnesemia; F32.9 Major depressive disorder, single episode, unspecified; F39 Unspecified mood [affective] disorder; K44.9 Diaphragmatic hernia without obstruction or gangrene; K63.9 Disease of intestine, unspecified; K64.8 Other hemorrhoids; N18.9 Chronic kidney disease, unspecified; E88.09 Other disorders of plasma-protein metabolism, not elsewhere classified; R63.4 Abnormal weight loss; Z20.828 Contact with and (suspected) exposure to other viral communicable diseases; E66.01 Morbid (severe) obesity due to excess calories; Z79.899 Other long term (current) drug therapy; Z82.49 Family history of ischemic heart disease and other diseases of the circulatory system; Z90.49 Acquired absence of other specified parts of digestive tract; Z80.3 Family history of malignant neoplasm of breast; Z68.36 Body mass index [BMI] 36.0-36.9, adult
CPT/HCPCS: 10081; 10797; 50010; 50093; 50101; 50386; 50455; 50525; 50555; 51489; 51708; 51712; 52265; 52287; 53307; 53310; 54118; 56462; 56524; 56525; 56526; 56528; 56529; 56668; 57092; 62110; 62900; 70005

== ENCOUNTER → 2020-04-16 | Outpatient (CLI) | payer OTHER ==
[~2020-04-16] MED LIST changes: +DULOXETINE HCL60 MG PO; +HYDROCODON-ACE1 EAC7 PO; +METAXALONE800 MG PO; +MIRALAX17 GM PO; +ONDANSETRON HCL8 MG PO; +PEPCID20 MG PO; +POTASSIUM CHLO10 ME1 PO; +SENNA-TIME S T1 EACH PO; +TYLENOL325 MG PO
== END ==
LOC: LAB 10:10
PROVIDERS: ATTEND Surgery
DX: Z01.812 Encounter for preprocedural laboratory examination (principal); Z20.828 Contact with and (suspected) exposure to other viral communicable diseases

== ENCOUNTER 2020-04-17 13:30 | Day surgery (SDC) | payer OTHER ==
[~2020-04-17] VITALS: Ht 160 cm; Wt 91.2 kg
[~2020-04-17 13:30] MED LIST changes: -HYDROCODON-ACE1 EAC7 PO; -MIRALAX17 GM PO; -SENNA-TIME S T1 EACH PO
[2020-04-17 14:09] VITALS: BP 93/53
[2020-04-17 14:36] LABS: HEMATOCRIT 31.5 % (37.0-47.0); HEMOGLOBIN 9.8 gm/dL (12.0-15.0)
[2020-04-17] MEDS ORDERED: SENNA-TIME S T1 EACH PO (16:37)
[2020-04-17] MEDS ORDERED: MIRALAX17 GM PO (16:37)
[2020-04-17] MEDS ORDERED: HYDROCODON-ACE1 EAC7 PO (16:38)
[2020-04-17 16:56] VITALS: BP 93/53
== END 2020-04-17 17:48 | disposition home or self-care (01) ==
LOC: OR 13:30 → TBA 13:31 → OR 17:48
PROVIDERS: ATTEND Surgery
DX: Z45.2 Encounter for adjustment and management of vascular access device (principal); C18.9 Malignant neoplasm of colon, unspecified; F32.9 Major depressive disorder, single episode, unspecified; E03.9 Hypothyroidism, unspecified; I12.9 Hypertensive chronic kidney disease with stage 1 through stage 4 chronic kidney disease, or unspecified chronic kidney disease; N18.30 Chronic kidney disease, stage 3 unspecified; M19.90 Unspecified osteoarthritis, unspecified site; K21.9 Gastro-esophageal reflux disease without esophagitis; E78.2 Mixed hyperlipidemia; E66.9 Obesity, unspecified; Z87.891 Personal history of nicotine dependence; Z72.89 Other problems related to lifestyle; Z90.49 Acquired absence of other specified parts of digestive tract; Z98.890 Other specified postprocedural states; Z79.899 Other long term (current) drug therapy; Z82.49 Family history of ischemic heart disease and other diseases of the circulatory system
CPT/HCPCS: 50010; 50101; 50386; 50403; 51938; 54118; 56524; 56525; 56526; 62110; 62850; 70005

== ENCOUNTER → 2020-04-25 | Outpatient (CLI) | payer OTHER ==
[~2020-04-25] MED LIST changes: +HYDROCODON-ACE1 EAC7 PO; +MIRALAX17 GM PO; +SENNA-TIME S T1 EACH PO
== END ==
LOC: ULTRA 09:14
PROVIDERS: ATTEND Internal Medicine Nephrology
DX: N18.30 Chronic kidney disease, stage 3 unspecified (principal)

== ENCOUNTER 2020-06-16 14:33 | Inpatient (IN) | payer OTHER ==
[~2020-06-16] VITALS: Ht 160 cm; Wt 86.6 kg
[2020-06-16 14:35] VITALS: BP 95/48
[2020-06-16 15:11] LABS: MCH 29.6 pg (26.0-34.0); MCHC 32.6 g/dL (28.0-37.0); MCV 90.7 fL (80.0-100.0); PLATELET COUNT 59 thou/uL (150-400); RDW 19.6 % (10.5-14.5); WBC 4.6 thou/uL (4.0-11.0)
[2020-06-16 15:13] LABS: HEMATOCRIT 17.2 % (37.0-47.0); HEMOGLOBIN 5.6 gm/dL (12.0-15.0)
[2020-06-16 15:28] LABS: ALBUMIN 2.3 g/dL (3.4-5.0); CALCIUM 7.7 mg/dL (8.5-10.1); DIRECT BILIRUBIN 0.4 mg/dL (<0.1-0.2); TOTAL PROTEIN 4.6 g/dL (6.4-8.2)
[2020-06-16 16:05] LABS: ABSOLUTE NEUTROPHILS 2.9 thou/uL (1.4-8.2); ANISOCYTOSIS 2+; METAMYELOCYTES 1 %; PLATELET ESTIMATE DECREASED
[2020-06-16 17:38] LABS: URINE BILIRUBIN NEGATIVE (Negative); URINE BLOOD 1+ (Negative); URINE CLARITY CLEAR; URINE COLOR YELLOW; URINE GLUCOSE-RANDOM* NEGATIVE (Negative); URINE KETONES NEGATIVE (Negative); URINE PROTEIN (DIPSTICK) NEGATIVE (Negative); URINE SPECIFIC GRAVITY <= 1.005 (1.005-1.035); URINE UROBILINOGEN 0.2 E.U./dl (0.2-1.0)
[2020-06-16 17:42] LABS: URINE LEUKOCYTES-REFLEX 3+ (Negative); URINE NITRITE-REFLEX POSITIVE (Negative)
[2020-06-16 17:53] LABS: CASTS None Seen /LPF (None Seen); SQUAMOUS 4-10 Moderate /LPF (0-3)
[2020-06-16 17:54] LABS: BACTERIA-REFLEX >30 Many /HPF (None Seen); CRYSTALS None Seen /LPF (None Seen); URINE RBC 3-10 Few /HPF (0-2)
[2020-06-16 19:38] VITALS: BP 78/39; BP 83/44; BP 87/34; BP 89/45; BP 92/42
[2020-06-16] MEDS ORDERED: MEGESTROL ACETA20 MG PO (20:19)
[2020-06-16] MEDS ORDERED: SKELAXIN 800 M800 MG PO (20:20)
[2020-06-16] MEDS ORDERED: PEPCID20 MG PO (20:20)
[2020-06-16 21:21] VITALS: BP 100/52; BP 82/44; BP 87/45; BP 90/43; BP 90/46; BP 96/51
[2020-06-16] MEDS ORDERED: LEVO-T100 MCG PO (21:46)
[2020-06-16] MEDS ORDERED: KLOR-CON M2020 MEQ PO (21:47)
[2020-06-16 22:00] LABS: CALCIUM 6.5 mg/dL (8.5-10.1); CREATININE 1.7 mg/dL (0.6-1.0); MAGNESIUM 1.6 mg/dL (1.8-2.4)
[2020-06-16 22:08] LABS: POTASSIUM 1.9 mmol/L (3.5-5.1)
[2020-06-16 22:26] VITALS: BP 107/51
--- NOTE | 2020-06-16 22:32 | NUR ---
Shayla called due to critical potassium. Gave orders for additional meds.
--- NOTE | 2020-06-16 22:37 | NUR ---
Report attempted to floor. Unable to take report.
[2020-06-16 23:17] VITALS: BP 103/48
[2020-06-17] VITALS (7 sets, daily range): BP systolic 100–148; BP diastolic 46–90
[2020-06-17 06:40] LABS: CALCIUM 7.5 mg/dL (8.5-10.1); CREATININE 1.7 mg/dL (0.6-1.0); HEMATOCRIT 25.2 % (37.0-47.0); MAGNESIUM 2.1 mg/dL (1.8-2.4); MCH 29.2 pg (26.0-34.0); MCV 88.4 fL (80.0-100.0); RBC 2.85 mil/uL (4.20-5.00); RDW 17.7 % (10.5-14.5); WBC 6.7 thou/uL (4.0-11.0)
[2020-06-17 06:45] LABS: HEMOGLOBIN 8.3 gm/dL (12.0-15.0)
[2020-06-17 07:02] LABS: POTASSIUM 2.6 mmol/L (3.5-5.1)
--- NOTE | 2020-06-17 07:08 | NUR ---
ASSUME CARE 1900. PT/VITALS STABLE. DENIES ANY PAIN. MODERATE TOLERANCE TO ACTIVITY WITH WALKER. SR ON MONITOR. VITALS STABLE. BP RUNS SOFT. ASSESSMENT CHARTED. PROGRESSING SLOWLY TO POC. PLAN IS FOLLOW UP WITH HEMONC AND CONTINUE TO MONITOR AND MANAGE ELECTROLYTE IMBALANCES. WILL CONTINUE TO FOLLOW WITH POC
[2020-06-17] MEDS ORDERED: LOPERAMIDE 2 MG2 M1 PO (09:26)
--- NOTE | 2020-06-17 13:09 | NUR ---
I have reviewed the documentation by BOBBI CHAVEZ from 06/17/20 to 06/17/20 and I concur with it. KERRI LOZOYA, PT, DPT
--- NOTE | 2020-06-17 14:07 | NUR ---
Nutrition: REC restart Megace as pt reports taking prior to admit and was helping her appetite. Severe malnutrition.
--- NOTE | 2020-06-17 18:30 | NUR ---
PT ASSESSED AT START OF SHIFT. PLEASANT AND COOPERATIVE W/ CARES. POTASSIUM REMAINED LOW AFTER NUMEROUS DOSE REPLACEMENTS. DOCTOR NOTIFIED. ORDERS FOR MORE DOSES. PT STATED SHE HAS DIARRHEA AT HOME AND TAKES IMMODIUM TID. MED STARTED HERE. VERY WEAK. WORKED W/THERAPIST SOME BUT WANTED TO REST IN BED.
--- NOTE | 2020-06-17 20:33 | HC ---
[facility] [place] [address] CONSULTATION Name: EVELINE HUITRON Rahul Room #: 202-P ADM IN M.R.#: [id number] Admission: 06/16/20 Attend Phys: Kristal Camp MD Discharge: Date of : 56 Report #: [id number] THIS REPORT FOR: cc: Rey Martines Steven F. DO McKittrick, Richard James MD ~ REQUESTING PHYSICIAN: Dr. Kristal Camp REASON FOR CONSULTATION: History of node positive colon cancer. HISTORY OF PRESENT ILLNESS: The patient is a very pleasant 60-year-old patient with a history of a 3 node positive colon cancer resected in 02/2020. Unfortunately, at home, she was having progressive weakness, diarrhea and had fallen and was unable to get from the bathroom. Today, the patient has been in the hospital for a little over 12 hours. She thinks she feels better. She was found to have low potassium, low magnesium, low hemoglobin. Note that she had electrolyte replacement transfusion. Also her UA was nitrite positive with bacteria. She is on an antibiotic. The patient at this time denies fevers or chills. Did have some slight anorexia. No vomiting. Does have diarrhea. She takes Imodium for it at home. No blood in her urine or stool. She does have some ecchymosis from one of her dogs climb on her at home. She is not aware of any blood in the urine. Ankle and arm swelling, no worse than usual. PAST MEDICAL HISTORY: Notable for the 3 node positive colon cancer resected in 02/2020. She has been on FOLFOX chemotherapy and has had most recently her third cycle of dose reduction. We have discussed whether to do further dose reduction given her low platelets. Also ____ as MLH1 and PMS2 ____, but also she had a BRAF mutation, so it is very unlikely she has Velasquez syndrome. There was also not seen NRAS or KRAS mutations. She had her final right hemicolectomy on 03/13/2020. Tumor size was 9.5 cm, grade 2. Lymphovascular invasion was indeterminate. Perineural invasion was not seen. Three of 20 lymph nodes were seen. The patient began modified FOLFOX chemotherapy in 04/2020. She most recently was in for her third cycle of chemotherapy. Notable for history of arthritis, back pain, high blood pressure, hypothyroidism, also had cholecystectomy, last menstrual cycle in 2011. She also had been on raloxifene for her osteoporosis. FAMILY HISTORY: Noncontributory. SOCIAL HISTORY: Noncontributory. PHYSICAL EXAMINATION: [facility] [address] [place] [address] CONSULTATION Name: IdalmisEVELINE Room #: 202-P [facility] IN ..#: [id number] Admission: 06/16/20 Attend Phys: Kristal Camp MD Discharge: Date of : 56 Report #: [id number] GENERAL: The patient appears her stated age. VITAL SIGNS: Her height is 5 feet 3 inches, 160 cm. Weight is 182.7 pounds or 82.8 kg. Blood pressure is 103/46, respirations 18, pulse 60, temperature is 97.7 axillary earlier this morning. HEENT: Oropharynx without any ____ leukoplakia. LYMPHATICS: No enlarged lymph nodes in the supraclavicular, cervical, axillary or inguinal region. LUNGS: Clear to auscultation with symmetric, unlabored respirations without rhonchi, wheezes or rales. HEART: Regular rate. SKIN: Has ecchymosis from her dog jumped on her. ABDOMEN: Soft, slightly obese, minimally tender. EXTREMITIES: Without clubbing, cyanosis. There is some perhaps trace edema. MEDICATIONS: Here include ceftriaxone 1 g IV, electrolyte replacement, Tylenol p.r.n., zolpidem p.r.n., Zofran p.r.n. LABORATORY DATA: Lab results here notable for creatinine of 2 on admission, 1.7 today. Total bilirubin 1. Transaminases normal. Alkaline phosphatase 203. White count today 6.7; hemoglobin 8.3 after transfusion up from 5.6; platelets 60, yesterday they were 59. Neutrophils or ANC is 2900. UA is positive for nitrite, also 16-25 white cells and greater than 30 bacteria. RADIOLOGIC STUDIES: Include a CT head showed no acute process. ASSESSMENT AND PLAN: 1. A 3 node positive colorectal cancer, status post third cycle of chemotherapy, due this next week. We ____ may consider further dose reduction pending how counts improve. ____ platelets 60,000 would likely stop oxaliplatin going forward ____ diarrhea and electrolytes too, may consider dose adjustment of 5-FU, leucovorin and more aggressive antidiarrheal medications. 2. Anemia, status post transfusion. 3. Electrolyte abnormalities. Continue replacement for others. 4. Urinary tract infection. Await final culture results and adjust antibiotics as needed. 5. Weakness. PT, OT will see the patient. 6. Anorexia, may consider restarting Megace ____ as outpatient. 7. Dehydration. IV fluids. We will follow with you. <ELECTRONICALLY SIGNED> By: Qasim Bustillos MD 06/17/202032 9 0840 Qasim Bustillos MD /leslie
[2020-06-18] VITALS (7 sets, daily range): BP systolic 95–109; BP diastolic 47–68
[2020-06-18 05:29] LABS: HEMATOCRIT 23.7 % (37.0-47.0); HEMOGLOBIN 7.7 gm/dL (12.0-15.0); MCH 29.7 pg (26.0-34.0); MCHC 32.7 g/dL (28.0-37.0); MCV 90.9 fL (80.0-100.0); RBC 2.61 mil/uL (4.20-5.00); RDW 18.7 % (10.5-14.5); WBC 7.4 thou/uL (4.0-11.0)
[2020-06-18 05:37] LABS: CALCIUM 7.9 mg/dL (8.5-10.1); CREATININE 1.5 mg/dL (0.6-1.0); POTASSIUM 3.1 mmol/L (3.5-5.1)
--- NOTE | 2020-06-18 05:54 | NUR ---
ASSUME CARE 1900. PT/VITALS STABLE. BP RUNS SOFT BUT STABLE. DENIES ANY PAIN. MODERATE TOLERANCE TO ACTIVBITY WITH SOME WEAKNESS NOTED. UP TO BATHROOM WITH WALKER X 1 ASSIST, PT/OT WORKING WITH PT. ASSESSMENT CHARTED. PROGRESSING SLOWLY WITH POC. ELECTROLYTES STILL UNSTABLE/REPLACEMENT PROTOCOL IN PLACE. IMMODIUM TO HELP WITH DIARRHEA. SR ON MONITOR. NO DISTRESSNOTED/ADEQUATE REST THROUGH THE SHIFT. PLAN IS TO CONTINUE TO MONITOR HGB/ ELECTROLYTES AND IMPROVE ACTIVITY. WILL CONTINUE TO MONITOR AND FOLLOW WIHT POC
[2020-06-18] MEDS ORDERED: NYSTATIN100000 UNI SW&SWALLOW (11:24)
--- NOTE | 2020-06-18 13:47 | NUR ---
met with patient who admits with UTI. Patient resides at home with spouse. patient reports she has 5 steps to enter and 5 steps in home with a railing. PT eval and reports patient extremenly weak and hypotensive with therapy. Patient has BSC and walker. She reports recent falls and dtr who lives nearby will assist with picking up from floor. Discussed rehab and strongly advised but patient does not want to go to any facility. Patient reports her spouse has been at places in past. Discussed acute rehab possible option but patient wants to return home with HH. She wants to utilize HH previously had at [facility].
--- NOTE | 2020-06-18 15:55 | NUR ---
FAXED REFERRAL TO [facility] SPOKE WITH JANIE IN ADM SHE CAN ACCEPT PT AT [place]. PT DISCHARGING TODAY TO HOME WITH [facility] FAXED DC ORDERS/SUMMARY SPOKE WITH JANIE SHE RECEIVED ORDERS AND WILL NOTIFY PT TO SET UP VISITS.
--- NOTE | 2020-06-18 17:23 | NUR ---
PT ALERT AND ORIENTED. EVALUATED BY PT AND OT. NEW ORDERS NOTED. PROGRESSING SLOWLY TOWARDS DISCHARGE GOAL.
--- NOTE | 2020-06-18 17:46 | NUR ---
I have reviewed the documentation by SANAZ MAX from 06/18/20 to 06/18/20 and I concur with it. SAH PENN
--- NOTE | 2020-06-19 05:12 | NUR ---
Pt. rested quietly during the night when checked on during frequent rounds. She was assisted up to the bedside comode with one person and a gait belt. Pt. did have a large amount of brown colored loose stool. No c/o pain. Bed alarm is on.
[2020-06-19 08:25] VITALS: BP 97/52
[2020-06-19 10:35] VITALS: BP 95/58
--- NOTE | 2020-06-19 10:54 | NUR ---
ASSUMED PT CARE THIS AM. PT VSS, A&OX4. PT HAS NO COMPLAINTS OF PAIN. GENERALIZED EDEMA NOTED, AND PT HAS A LOT OF BREUISING. PT TAKES MEDS WITHOUT COMPLAINT. IV PATENT, MEDS INFUSING. PT CALLS WHEN NEEDED. HYDRATION ENCOURAGED.
--- NOTE | 2020-06-19 14:29 | NUR ---
CM CALLED PT THIS MORNING. SHE INDICATED THAT SHE WILL NOT GO TO A SKILLED FACILITY THAT SHE IS ONLY AGREEABLE TO RETURN HOME WITH HH SERVICES. [facility] IS ABLE TO ACCEPT PT FOR SERVICES UPON DC. CARE TEAM INDICATED PT IS MEDICALLLY STABLE TO DC HOME TODDAY. PT INDICATED THAT PT SHOULD HAVE ASSIST WITH ALL OOB ACTIVITY DUE TO WEAKNESS AND BP ISSUES. PT INDICATED HE SPOUSE AND DTR WILL ASSIST HER. PT'S SPOUSE TO PROVIDE TRANSPORT HOME. ORDERS SENT TO [facility]. NO OTHER CM INTERVENTION INDICATED CASE CLOSED.
== END 2020-06-19 14:08 | disposition home health service (06) | DRG 682 ==
LOC: ER 14:33 → EROBS 17:53 → 2N 17:53 → 4W 06-18 19:20
PROVIDERS: Emergency Medicine; Hospitalist; ADMIT Internal Medicine; ATTEND Internal Medicine
PROC: 30233N1 Transfusion of Nonautologous Red Blood Cells into Peripheral Vein, Percutaneous Approach (ICD-10-PCS; principal; 2020-06-16)
DX: N17.9 Acute kidney failure, unspecified (principal); E43 Unspecified severe protein-calorie malnutrition; N39.0 Urinary tract infection, site not specified; I95.9 Hypotension, unspecified; E87.6 Hypokalemia; I10 Essential (primary) hypertension; F32.9 Major depressive disorder, single episode, unspecified; K21.9 Gastro-esophageal reflux disease without esophagitis; E03.9 Hypothyroidism, unspecified; E86.0 Dehydration; E83.42 Hypomagnesemia; M19.90 Unspecified osteoarthritis, unspecified site; D64.9 Anemia, unspecified; R63.0 Anorexia; D69.6 Thrombocytopenia, unspecified; E87.8 Other disorders of electrolyte and fluid balance, not elsewhere classified; Z68.33 Body mass index [BMI] 33.0-33.9, adult; Z90.49 Acquired absence of other specified parts of digestive tract; Z85.038 Personal history of other malignant neoplasm of large intestine; Z92.21 Personal history of antineoplastic chemotherapy; Z79.899 Other long term (current) drug therapy
CPT/HCPCS: 10047; 10081

== ENCOUNTER 2020-06-22 14:08 | Inpatient (IN) | payer OTHER ==
[~2020-06-22] VITALS: Ht 160 cm; Wt 88.5 kg
--- NOTE | ~2020-06-22 | EMS ---
[address] [address] EMS Patient Care Report Name: EVELINE HUITRON Room #: REG ROLLY Newman#: [id number] Admission: 06/22/20 Attend Phys: Discharge: Date of : 56 Report #: [id number] THIS REPORT FOR: //name// Report Transmitted: 06/22/2020 14:24 EMS Care Summary [place], [place]/[facility] Incident [id number] @ 06/22/2020 13:06 Incident Location [id number] [place] [address] Patient EVELINE HUITRON Female, 60 Years 1960 Patient Address [id number] [place] [address] Patient History Colon Cancer,Anemia,Hypothyroidism,Hypokalemia,Hypomagnesemia, Patient Allergies No known allergies, Patient Medications Ondansetron, Duloxetine, Ferrous Sulfate, Levothyroxine, Losartan, Tolterodine, Loperamide, Famotidine, Potassium, Chief Complaint Weakness Disposition Transported No Lights/[place] Dispatch Reason Sick Person Transported To [facility] Narrative M528 responded immediately to the scene of a Sick. Arrived on scene and family directs us to patient location. [address] [address] EMS Patient Care Report Name: EVELINE HUITRON Room #: REG Trent#: [id number] Admission: 06/22/20 Attend Phys: Discharge: Date of : 56 Report #: [id number] Upon arrival, pt found VILLEDA and sitting on bedside commode. Pt reports of generalized weakness that is getting worse throughout the week. Had gotten onto the commode and had several BMs. After about 30 minutes, pt's legs were too weak and tight to even stand up and get back up into bed. Was at [facility] on 06/16 after similar symptoms. Hx of colon CA. Agreeable to EMS transport to [facility]. Unable to get cot into room or easy access in standing pt up and moving her, so manpower assistance requested. P42 arrived on scene and patient moved onto mer movers, then out to cot. Secured on via straps, rails up, then moved out to ambulance. Primary ALS assessment performed. Vitals established. D-stick acquired. 20g saline lock secured and NS bolus began. Transport to [facility] then began. Contacted with a short ETA and pt report given. During transport, pt's BP improves with bolus. Arrived at and patient to ER 06. Report to RN then care released. Initial Vitals @13:56P: 77,BP: 79/46,SpO2: 99, @13:42P: 77,R: 21,BP: 69/50,GCS: 15,Glucose: 114,CO: 0,SpO2: 98,Revised Trauma: 10, @14:00P: 72,R: 18,BP: 106/66,Pain: 0/10,GCS: 15,SpO2: 100,Revised Trauma: 12, Assessments @13:41MENTAL:Person Oriented,Time Oriented,Event Oriented,Place Oriented,SKIN:Pale,HEENT:LUNG SOUNDS:General: Diarrhea,ABDOMEN:General: Diarrhea,PELVIS//GI:EXTREMITIES:PULSE:NEURO: Impression Diarrhea Procedures @13:41ALS AssessmentResponse: UnchangedSucceeded@13:45Saline Lock 5cc (20 ga) Site: Hand-LeftResponse: UnchangedSucceeded@13:47Normal Saline (.9% NaCl) 250cc () Site: Hand-LeftResponse: ImprovedSucceeded Timeline 13:03,Call Received 13:03,Dispatch Notified 13:06,Dispatched 13:08,En Route 13:15,On Scene 13:16,At Patient 13:41,ALS Assessment,Response: UnchangedSucceeded, 13:42,BP: 69/50 M,PULSE: 77,RR: 21 R,SPO2: 98 Ox,ETCO2: ,B,PAIN: ,GCS: [address] [address] EMS Patient Care Report Name: EVELINE HUITRON Room #: [facility]#: [id number] Admission: 06/22/20 Attend Phys: Discharge: Date of : 56 Report #: [id number] 15, 13:45,Saline Lock 5cc 20 ga Site: Hand-Left,Response: UnchangedSucceeded, 13:47,Normal Saline (.9% NaCl) 250cc Site: Hand-Left,Response: ImprovedSucceeded, 13:49,Depart Scene 13:56,BP: 79/46 M,PULSE: 77,RR: R,SPO2: 99 Ox,ETCO2: ,BG: ,PAIN: ,GCS: , 14:00,At Destination 14:00,BP: 106/66 M,PULSE: 72,RR: 18 R,SPO2: 100 Ox,ETCO2: ,BG: ,PAIN: 0,GCS: 15, 14:16,Call Closed Disclaimer v1.1 Copyright 2020 [employer] This EMS Care Summary contains data elements from the applicable legal record (which may be displayed differently). It is designed to provide pertinent information for the following purposes: continuity of care, clinical quality, and state data reporting. The complete legal record is available to ED staff and administrators of the receiving hospital in [employer]'s Patient Tracker. All data is provided "as is."
--- NOTE | ~2020-06-22 | HC ---
[facility] [place] [address] CONSULTATION Name: EVELINE HUITRON Room #: 454-P [facility] IN M.R.#: [id number] Admission: 06/22/20 Attend Phys: Frederick Root MD Discharge: Date of : 56 Report #: [id number] THIS REPORT FOR: cc: Rey Martines Steven F. DO Elia, Manana MD ~ DATE OF SERVICE: 06/23/2020 REQUESTING PHYSICIAN: Dr. Root. REASON FOR CONSULTATION: Colon cancer and diarrhea. HISTORY OF PRESENT ILLNESS: The patient is a pleasant 60-year-old woman who is undergoing adjuvant chemotherapy under Dr. Bustillos. She has stage III colon cancer, started adjuvant chemotherapy with FOLFOX in April. She received last cycle of chemotherapy last week of May. She is admitted to the hospital after having persistent diarrhea. The patient reported weakness, dehydration. Oncology consult is requested. She is feeling somewhat better. She states her diarrhea improved. She had only 1 bowel movement today. She is not able to have C. difficile test done because of an inability to obtain liquid stool sample. She does not have fevers or chills. Denies mouth sores. She is still lightheaded, but gradually getting better. PAST MEDICAL HISTORY: Significant for colon cancer, anemia, hypothyroidism, gastric bypass surgery. SOCIAL HISTORY: Does not smoke, does not drink alcohol excessively. REVIEW OF SYSTEMS: CONSTITUTIONAL: No recent weight loss. HEENT: No mouth sores. CARDIOVASCULAR: No chest pain or palpitation. RESPIRATORY: No shortness of breath, cough. GASTROINTESTINAL: See above. GENITOURINARY: No dysuria. SKIN: No rash. PSYCHIATRIC: History of depression. NEUROLOGIC: No tingling, numbness, headaches. PHYSICAL EXAMINATION: GENERAL: Reveals a well-developed, well-nourished female, not in acute distress. VITAL SIGNS: Blood pressure 112/45, heart rate 66, temperature 97.2, respirations 20. HEENT: Does not reveal thrush. [facility] [address] [place] [address] CONSULTATION Name: EVELINE HUITRON Room #: 454-P [facility] IN M.R.#: [id number] Admission: 06/22/20 Attend Phys: Frederick Root MD Discharge: Date of : 56 Report #: [id number] NECK: Supple. CARDIAC: Normal S1, S2. LUNGS: Clear. EXTREMITIES: Lower extremity +1 edema. There are large bruises on her shins due to trauma as per the patient. LABORATORY DATA: White count 15.9, hemoglobin 6.7, platelets 196. Sodium 140, potassium 3.5, chloride 114, bicarbonate 15, BUN 14, creatinine 1.2. Cultures negative. ASSESSMENT AND PLAN: 1. Diarrhea, resolved. 2. Acidosis. Plan to give her IV fluids half normal saline with one and half amp of bicarbonate x 1 liter. Plan to supplement potassium orally. 3. Anemia. Continue to monitor. 4. Colon cancer. Dr. Bustillos will make decisions regarding further chemotherapy. Thank you very much for allowing me to participate in care of this patient. By: 2313 0212 Dillan Dumont MD /nt
[~2020-06-22 14:08] MED LIST changes: +KLOR-CON M2020 MEQ PO; +LOPERAMIDE 2 MG2 M1 PO; +MEGESTROL ACETA20 MG PO; +NYSTATIN100000 UNI SW&SWALLOW; +SKELAXIN 800 M800 MG PO
[2020-06-22 14:20] VITALS: BP 99/54
[2020-06-22 15:10] LABS: HEMATOCRIT 26.8 % (37.0-47.0); HEMOGLOBIN 8.4 gm/dL (12.0-15.0); MCH 28.4 pg (26.0-34.0); MCHC 31.3 g/dL (28.0-37.0); MCV 90.6 fL (80.0-100.0); PLATELET COUNT 173 thou/uL (150-400); RBC 2.96 mil/uL (4.20-5.00); RDW 20.1 % (10.5-14.5); WBC 17.3 thou/uL (4.0-11.0)
[2020-06-22 15:16] LABS: CALCIUM 7.5 mg/dL (8.5-10.1); CREATININE 1.3 mg/dL (0.6-1.0); MAGNESIUM 1.5 mg/dL (1.8-2.4); POTASSIUM 3.6 mmol/L (3.5-5.1)
[2020-06-22 15:44] LABS: ABSOLUTE NEUTROPHILS 12.6 thou/uL (1.4-8.2); ANISOCYTOSIS 2+; NUCLEATED RBCS 4 /100WBC
[2020-06-22 15:45] LABS: POLYCHROMASIA SLIGHT
[2020-06-22 19:44] LABS: ALBUMIN 2.2 g/dL (3.4-5.0); TOTAL PROTEIN 4.4 g/dL (6.4-8.2)
[2020-06-22 19:52] LABS: URINE BILIRUBIN NEGATIVE (Negative); URINE BLOOD NEGATIVE (Negative); URINE CLARITY SL CLOUDY; URINE COLOR YELLOW; URINE GLUCOSE-RANDOM* NEGATIVE (Negative); URINE KETONES NEGATIVE (Negative); URINE NITRITE-REFLEX NEGATIVE (Negative); URINE PROTEIN (DIPSTICK) NEGATIVE (Negative); URINE UROBILINOGEN 0.2 E.U./dl (0.2-1.0)
[2020-06-22 20:08] LABS: URINE LEUKOCYTES-REFLEX 1+ (Negative)
[2020-06-22 20:14] LABS: SQUAMOUS >10 Many /LPF (0-3)
[2020-06-22 20:15] LABS: CASTS None Seen /LPF (None Seen); URINE RBC None Seen /HPF (0-2); URINE WBC-REFLEX 6-15 Few /HPF (0-5); YEAST-REFLEX Present (None Seen)
[2020-06-22 20:16] LABS: BACTERIA-REFLEX None Seen /HPF (None Seen); CRYSTALS None Seen /LPF (None Seen); MUCUS 4-6 Moderate strn/LPF (None Seen)
[2020-06-23 02:21] VITALS: BP 95/50
[2020-06-23 03:13] VITALS: BP 102/49
[2020-06-23 03:21] VITALS: BP 101/60
--- NOTE | 2020-06-23 04:18 | NUR ---
PATIENT ADMITTED FROM ED TO ROOM 447 AT 0250. ALERT AND ORIENTED X4. MULTIPLE BRUISES TO ARMS AND LEGS. EDEMA +3-4 IN LOWER LEGS. PORTACATH AND LEFT HAND SL. RESTING QUIETLY.
--- NOTE | 2020-06-23 07:30 | NUR ---
PATIENT WAS NOTED TO HAVE AN ORDER TO RULE OUT CDIFF. THIS WAS REPORTED TO ROUGH RIB GRADER (AFSANEH). PATIENT WAS MOVED TO ROOM 454 THIS AM AND REPORT WAS GIVEN TO INEZ VASQUEZ. PATIENT HAS RIGHT PORTACATH AND LEFT HAND SL. ALERT AND ORIENTED X4. COOPERATIVE WITH CARE. BRUISES ALL OVER BODY FROM PREVIOUS FALLS AT HOME. PATIENT STATES SHE HAS WEAKNESS AND HAS BEEN HAVING SEVERAL STOOLS, HOWEVER, NO STOOLS DURING THE NIGHT. MEDS TAKEN WITH APPLESAUCE - NOT CRUSHED. PATIENT WILL BE PUT IN ISOLATION FOR C-DIFF. TRANSFERRED AT APPROX. 0715 BY THIS NURSE AND SMALL BUSINESS SALES REPRESENTATIVE.
[2020-06-23 07:40] VITALS: BP 102/49
[2020-06-23 08:33] LABS: HEMATOCRIT 23.8 % (37.0-47.0); HEMOGLOBIN 7.6 gm/dL (12.0-15.0); MCH 28.5 pg (26.0-34.0); MCHC 31.7 g/dL (28.0-37.0); RBC 2.65 mil/uL (4.20-5.00); RDW 21.6 % (10.5-14.5); WBC 15.9 thou/uL (4.0-11.0)
[2020-06-23 08:45] LABS: CALCIUM 7.9 mg/dL (8.5-10.1); CREATININE 1.2 mg/dL (0.6-1.0); PHOSPHORUS 1.9 mg/dL (2.5-4.9); POTASSIUM 3.5 mmol/L (3.5-5.1)
[2020-06-23 16:20] VITALS: BP 92/52
--- NOTE | 2020-06-23 17:13 | NUR ---
PT A&OX4, VSS, DENIES N/V/D AND PAIN. PORTACATH RIGHT SIDE. NO SIGNS OF DISTRESS. WILL CONTINUE TO MONITOR.
[2020-06-23 19:28] VITALS: BP 93/52
--- NOTE | 2020-06-24 01:50 | NUR ---
ASSUMED CARE OF PT AT 1900HRS. PT AOX4 AND LETS NEEDS BE KNOWN. FALL PRECAUTION IN PLACE. ISOLATION DISCONTINUED PT IS NEGATIVE FOR C-DIFF. PT DENIED PAIN, NAUSEA OR SOA. PT WAS ABLE TO GET COMFORTABLE AND SLEEP PART OF THE SHIFT. PT REPORTS FEELING BETTER TODAY. BLE ELEVATED DUE TO EDEMA. PT WAS ABLE TO GET COMFORTABLE AND SLEEP PART OF THE CHIFT. VSS AND NO S/S OF ACUTE DISTRESS. WILL CONTINUE TO MONITOR.
[2020-06-24 05:16] LABS: HEMATOCRIT 22.3 % (37.0-47.0); HEMOGLOBIN 7.1 gm/dL (12.0-15.0); MCH 29.1 pg (26.0-34.0); MCHC 32.1 g/dL (28.0-37.0); MCV 90.6 fL (80.0-100.0); RBC 2.46 mil/uL (4.20-5.00); RDW 22.9 % (10.5-14.5); WBC 15.1 thou/uL (4.0-11.0)
[2020-06-24 05:18] LABS: CALCIUM 7.4 mg/dL (8.5-10.1); CREATININE 1.1 mg/dL (0.6-1.0); MAGNESIUM 1.8 mg/dL (1.8-2.4); PHOSPHORUS 1.7 mg/dL (2.5-4.9); POTASSIUM 3.9 mmol/L (3.5-5.1)
[2020-06-24 08:00] VITALS: BP 91/55
--- NOTE | 2020-06-24 12:02 | NUR ---
PT ADMITTED RELATED TO DEHYDRATION, DIARRHEA, HYPOMAG. CM REVIEWED CHART AND SPOKE WITH CARE TEAM. CM CALLED AND SPOKE WITH PT AND SPOUSE WHO WAS AT BEDSIDE THIS DAY. PT HAD DISCHAERED HOME WED 06/19 WITH [facility]. PT INDICATED SHE STILL WASN'T RECEPTIVE TO GOING TO A SNF UPON [place]. PT INDICATED SHE WOULD BE RECEPTIVE TO [facility] FOR POSSIBLE ADMISSION. CM SPOKE WITH [facility] AND THEY WERE GOING TO ENTER A CONSULT. CM FOLLOWING REGARDING DC PLANNING.
--- NOTE | 2020-06-24 16:04 | NUR ---
[facility] ASSESSED PT AND INDICATED THAT SHE WOULD BE APPROPRIATE FOR NIGHT CUSTODIAN WAS REACHING OUT TO PT'S [facility]PART[facility] INSURNACE TO ENSURE THAT THEY ARE IN NETWORK AND WILL SUBMIT FOR AUTH. CM TO FOLLOW INDICATED WITH DC PLANNING.
--- NOTE | 2020-06-24 18:12 | NUR ---
PATIENT SEEN BY NENA HERNANDEZ NP WITH DR. GALLAGHER FOR REHAB CONSULT. PATIENT IS A CANDIDATE FOR ACUTE REHAB STAY. AUTHORIZATION REQUESTED FROM [facility] THIS DATE FOR ACUTE REHAB ADMISSION. TELEVISION TECHNICIAN UPDATED. WILL AWAIT RESPONSE FROM PATIENT'S INSURANCE. THANK YOU FOR THIS REFERRAL.
[2020-06-24 19:43] VITALS: BP 90/47
--- NOTE | 2020-06-24 20:03 | NUR ---
ASSUMED CARE AT 0700. PT FEELING LESS TIRED BY THIS EVENING, RESTED WELL THIS AFTERNOON. ONLY ONE LARGE BM THIS SHIFT. ASSESSMENTS PER CHART. VSS. PROGRESSING TOWARDS POC GOALS.
[2020-06-25 06:01] LABS: HEMATOCRIT 22.2 % (37.0-47.0); HEMOGLOBIN 7.1 gm/dL (12.0-15.0); MCH 29.3 pg (26.0-34.0); MCV 91.7 fL (80.0-100.0); RBC 2.43 mil/uL (4.20-5.00); RDW 24.5 % (10.5-14.5)
--- NOTE | 2020-06-25 06:05 | NUR ---
ASSUMED CARE OF PT AT 1900HRS. PT AOX3-4 AND LETS NEEDS BE KNOWN. FALL PRECAUTION IN PLACE. PT DENIES PAIN, NAUSEA OR SOA. ASSESSMENT CHARTED. BLE ELEVATED DUE TO EDEMA. PT WAS TIRED AND SLEPT MOST OF THE SHIFT. VSS AND NO S/S OF ACUTE DISTRESS. WILL CONTINUE TO MONITOR.
[2020-06-25 06:22] LABS: CALCIUM 7.5 mg/dL (8.5-10.1); MAGNESIUM 1.7 mg/dL (1.8-2.4); PHOSPHORUS 1.6 mg/dL (2.5-4.9); POTASSIUM 4.4 mmol/L (3.5-5.1)
[2020-06-25 08:24] VITALS: BP 118/45
[2020-06-25 08:28] LABS: % SATURATION 71 % (20-39); IRON 79 ug/dL (50-170); TIBC 112 ug/dL (250-450)
[2020-06-25 08:37] LABS: ABSOLUTE RETIC COUNT 0.1228 10^6/uL; OBSERVED RETIC COUNT 4.96 % (0.6-2.6)
[2020-06-25 09:16] LABS: FOLIC ACID 30.1 ng/mL (8.6-58.9)
--- NOTE | 2020-06-25 12:17 | NUR ---
Received awake on bed. Due medications given as prescribed, able to swallow meds w/o difficulty. On room air. Vital signs stable. On MS, not on telemetry; no complains and signs of chest pain, crushing sensation and heaviness. On heart healthy diet- tolerating well; no nausea, no vomiting and no abdominal pain noted. Assisted in ADLs. Continent of bowel and bladder. With R chest port- accessed; dressing C/D/I. With BLE edema, kept elevated. With redness on her sacrum; turned regularly. Still a/w insurance authorization for transfer to , CM aware. To continue monitoring patient. Visited by relative, update given.
--- NOTE | 2020-06-25 14:57 | NUR ---
[facility] INDICATED THAT PT WOULD BE APPROPRIATE FOR ADMISSION AND THEY SUBMITTED FOR AUTH FROM PT'S INSURANCE LATER YESTERDAY. CM FOLLOWING. CM TO FOLLOW INDICATED WITH DC PLANNING.
[2020-06-25 16:19] VITALS: BP 106/58
[2020-06-25 19:24] VITALS: BP 97/51
--- NOTE | 2020-06-26 03:46 | NUR ---
ASSUMED CARE OF PT AT 1900HRS. PT AOX4 AND LETS NEEDS BE KNWON. FALL PRECAUTION IN PLACE. PT DENIES PAIN, NAUSEA OR SOA. ASSESSMENT CHARTED. PT IS INCT AND PREFERS WEARING A BRIEF. PT TOOK HS MEDS WITH APPLESAUCE. PT WAS ABLE TO GET COMFORTABLE AND SLEEP PART OF THE SHIFT. VSS AND NO S/S OF ACUTE DISTRESS. WILL COTINUE TO MONITOR.
--- NOTE | 2020-06-26 08:06 | HC ---
[facility] [place] [address] CONSULTATION Name: IdalmisEVELINE C Room #: 454-P ADM IN M.R.#: [id number] Admission: 06/22/20 Attend Phys: Frederick Root MD Discharge: Date of : 56 Report #: [id number] THIS REPORT FOR: cc: Rey Martines,Yoni Feliciano MD ~ DATE OF SERVICE: 06/23/2020 HISTORY OF PRESENT ILLNESS: The patient is a 60-year-old female who has a history of colon cancer involving the cecum with a large mass, had underwent a right hemicolectomy with primary anastomosis on , later had a Port-A-Cath placed, apparently had nodes that were positive and has been undergoing chemotherapy by Dr. Bustillos. She has continued diarrhea, was actually having some diarrhea prior to the surgery, but has been having intermittent bouts of significant diarrhea since starting chemotherapy. She is scheduled to have chemotherapy every 2 weeks. Recent note from Dr. Bustillos on 06/19/2020, stated they were going to push back chemotherapy 2 weeks to allow for better recovery from her recent hospitalization, will also to decrease the dose. She has also been having thrombocytopenia and anemia likely due to the chemotherapy. She denies any obvious blood in her stools. Denies any abdominal pain. On a bad day, she states she is having 3-4 loose bowel movements per day, was trying to take Imodium on a p.r.n. basis at home, which was somewhat helpful. Since she has been admitted, she is on Imodium and reports no bowel movement today. Other reason for hospitalization was generalized weakness. She denies any nausea or vomiting. No fevers or chills. No cough or shortness of breath. She has had a previous history of gastric bypass many years ago. Stool studies have been ordered. White blood cell count yesterday was 17.3, today is 15.9, hemoglobin 7.6, was 8.4 yesterday, platelet count 196, 06/18/2020 was 60,000. PAST MEDICAL HISTORY: Colon cancer as described above, status post right hemicolectomy, previous cholecystectomy, previous gastric bypass surgery, history of anemia, hypertension, depression, gastroesophageal reflux disease, hypothyroidism, umbilical hernia repair. REVIEW OF SYSTEMS: As per HPI. ALLERGIES: No known drug allergies. FAMILY HISTORY: Negative for colon cancer. SOCIAL HISTORY: She denies any tobacco or alcohol use at this time. CURRENT MEDICATIONS: Loperamide 4 mg after each bowel movement, duloxetine, Synthroid, potassium chloride, Lovenox, Pepcid, Megace, iron sulfate, potassium [address] [address] CONSULTATION Name: EVELINE HUITRON Room #: 454-P [facility] IN .R.#: [id number] Admission: 06/22/20 Attend Phys: Frederick Root MD Discharge: Date of : 56 Report #: [id number]. PHYSICAL EXAMINATION: VITAL SIGNS: Temperature is 97.2, pulse 66, blood pressure 102/49, respiratory rate is 20. GENERAL: She is alert and oriented x 3, in no acute distress. HEENT: Sclerae nonicteric. Oropharynx clear. NECK: Supple, without lymphadenopathy. CARDIOVASCULAR: Regular rate and rhythm. CHEST: Clear to auscultation bilaterally. Port-A-Cath is noted in the right upper chest. ABDOMEN: Soft. Previous incision is well healed, nontender, nondistended, normoactive bowel sounds. EXTREMITIES: No cyanosis, clubbing or edema. LABORATORY DATA: Sodium 140, potassium 3.5, chloride 114, bicarbonate 15, BUN 14, creatinine 1.2, glucose 75, calcium 7.9, phosphorus 1.9. Lactic acid level yesterday is 1.0. WBC is 15.9, hemoglobin 7.6, MCV 90.0, platelet count 196. Stool studies have been ordered. TSH is 7.4. COVID testing yesterday was negative. ASSESSMENT AND PLAN: 1. Diarrhea, suspect that chemotherapy may be playing a role. The patient has also a history of right hemicolectomy end of February of this year, which could cause loose stools in general as well. Agree with loperamide, which she is getting scheduled at this point. If she has continued diarrhea may add Questran in the near future. Also, agree with stool studies, which have been ordered at this time. 2. Gastroesophageal reflux disease. Continue Pepcid. She denies any heartburn at this time. We will continue to follow. Thank you for allowing me to participate in her care. <ELECTRONICALLY SIGNED> By: Yoni Trotter MD 06/26/20 0806 [id number] oYni Trotter MD /nt
[2020-06-26 09:10] LABS: HEMATOCRIT 25.3 % (37.0-47.0); MCH 28.9 pg (26.0-34.0); MCHC 31.6 g/dL (28.0-37.0); MCV 91.6 fL (80.0-100.0); RBC 2.76 mil/uL (4.20-5.00); WBC 17.4 thou/uL (4.0-11.0)
[2020-06-26 09:32] VITALS: BP 92/70
[2020-06-26 10:29] LABS: CALCIUM 7.9 mg/dL (8.5-10.1); CREATININE 1.1 mg/dL (0.6-1.0); MAGNESIUM 1.6 mg/dL (1.8-2.4); POTASSIUM 4.8 mmol/L (3.5-5.1)
--- NOTE | 2020-06-26 12:01 | NUR ---
AWAITING INSURANCE AUTH FOR PT TO GO TO [facility]. LIAISON TO REACH OUT TO [employer]. CM TO FOLLOW INDICATED WITH DC PLANNING.
[2020-06-26 16:42] VITALS: BP 85/55
--- NOTE | 2020-06-26 17:51 | NUR ---
ASSUMED CARE OF PT AT SHIFT CHANGE. ASSESSMENT CHARTED. MEDS GIVEN PER SEP. PT A&OX4, NO C/O PAIN OR DISTRESS. ONE LARGE BM, SOFT. PT VERY WEAK, HAD DIFFICULTY WORKING WITH PYSICAL THERAPY. PLAN TO GO TO [facility] TOMORROW. WILL CONTINUE TO MONITOR AND FOLLOW POC.
[2020-06-26 20:46] VITALS: BP 110/50
[2020-06-27 07:31] VITALS: BP 92/48
--- NOTE | 2020-06-27 07:32 | NUR ---
CARE ASSUMED AT 1900 PATIENT WAS IN BED ASLEEP. PATIENT AOX4 MAKES NEEDS KNOWN. PATIENT INCONTIENT THIS SHIFT, PERICARE AND BARRIER CREAM APPLIED NEEDED. FALL PRECAUTION INPLACE.PATIENT IN BED ASLEEP AT THIS TIME BREATHING REGULAR AND UNLABOURED.
--- NOTE | 2020-06-27 11:49 | NUR ---
ASSUMED PT CARE THIS AM. PT VSS, A&O4. PT SLEEPING THIS SHIFT SO FAR. ASSESSMENT COMPLETED, AND TOOK MEDS WITHOUT COMPLAINT. AID ATTEMPTED TO GET PT UP TO MOVE AROUND, PT REPORTED THAT SHE DOES NOT WANT TO GET UP, SHE JUST WANTS TO SLEEP. AT BEDSIDE CURRENTLY.
--- NOTE | 2020-06-27 14:37 | NUR ---
CARE TEAM HAD INDICATED THAT PT IS MEDICALLY STABLE TO DC TO [facility] SOON AUTH IS RECEIVED. [facility] HAS CONTACTED THEM TWICE THIS DAY AND IT STILL SHOWS PENDING.. CM MET WITH PT AND SPOUSE AT BEDSIDE THIS DAY AND UPDATED THEM. THEY ARE AWARE AND AGREEABLE. CM TO FOLLOW INDICATED WITH DC PLANNING.
[2020-06-27 14:44] VITALS: BP 81/41
--- NOTE | 2020-06-27 16:37 | NUR ---
PATIENT'S AUTHORIZATION REQUEST WITH CLINICAL INFORMATION WAS SENT TO [facility] ON 06/24/20. [facility] WAS CALLED ON 06/26/20 AND THEY REPORT THAT IT TAKES 2 TO 5 DAYS TO RECEIVE AUTH RESPONSE. ASKED IF CASE COULD BE ESCALATED, THEY STATED TO DO THAT WOULD LIKELY DC CURRENT REQUEST AND TAKE LONGER TO GET ANSWER. MAIL DISTRIBUTION CLERK CALLED 3 TIMES THIS DATE TO CHECK AUTH STATUS. OS 16:22 THIS DATE AUTH IS STILL PENDING. DC SUPERVISOR [employer] INFORMED.
[2020-06-27 16:47] VITALS: BP 84/52
[2020-06-27 20:01] VITALS: BP 94/59
--- NOTE | 2020-06-28 02:28 | NUR ---
PT CARE ASSUMED WITH AT BEDSIDE OF PT.PT IS A/O X4.PT DENIED PAIN AND NAUSEA AND VOMITING.PT TAKES MEDICATION WHOLE WITH NO ISSUES.PT WAITING AUTHORIZATION TO GO TO [facility].WILL CONTINUE TO MONITOR
[2020-06-28 10:45] VITALS: BP 94/44
--- NOTE | 2020-06-28 13:26 | NUR ---
AUTH WAS RECIEVED FOR PT TO DC TO [facility] THIS DAY. PT AND SPOUSE ARE AWARE AND AGREEABLE. PT TO DC TO [facility] AROUND 1600 THIS AFTERNOON. REPORT TO BE CALLED TO . NO OTHER CM INTERVENTION INDICATED. CASE CLOSED.
--- NOTE | 2020-06-28 16:01 | NUR ---
PATIENT RECEIVED AUTHORIZATION TO TRANSFER TO ACUTE REHAB ON 06/28/20. AUTH # [id number]. INITIAL REVIEW DUE AFTER 7 DAYS. REVIEW TO BE FAXED TO [facility] AT [phone].
--- NOTE | 2020-06-28 17:00 | NUR ---
ASSUMED CARE OF PATIENT AT SHIFT CHANGE. ASSESSMENT CHARTED. MEDS ADMINISTERED PER EMAR. VSS. PATIENT IS A&OX4 AND MAKES NEEDS KNOWN. HAS BEEN AWAITING AUTHORIZATION TO GO TO [facility]. AUTHORIZATION WAS GRANTED THIS DAY AND REPORT TO [facility] WAS ATTEMPTED. FLOOR IS BUSY AND THEY WILL CALL [facility] FOR REPORT. PATIENT DENIES PAIN AND ONLY C/O OF NOT GETTING BREAKFAST THIS AM. SPOUSE AT BEDSIDE. PATIENT VOICES NO NEEDS AT THIS TIME. FALL PRECAUTIONS IN PLACE. WILL CONTINUE TO MONITOR AND FOLLOW PLAN OF CARE.
--- NOTE | 2020-07-01 07:54 | EKG ---
[address] [address] ELECTROCARDIOGRAM REPORT Name: EVELINE HUITRON Room #: 454-P [facility] IN .R.#: [id number] Admission: 06/22/20 Attend Phys: Frederick Root MD Discharge: 06/28/20 Date of : 56 Report #: [id number] [facility] ED Test Date: 2020-06-22 Test Time: 16:04:26 Pat Name: EVELINE HUITRON Department: Room: [facility] Gender: F Touch Up Painter: HONEY : 1960 Requested By: Wilner Jay Order Number: [id number] MD: Mustapha Buchanan Measurements Intervals [place] Rate: 67 P: 29 GA: 127 QRS: 0 QRSD: 126 T: 160 QT: 430 QTc: 454 Interpretive Statements Sinus rhythm Nonspecific intraventricular conduction delay Borderline repolarization abnormality Electronically Signed On 06-24-2020 7:20:52 MORTUARY OPERATIONS MANAGER by Mustapha Buchanan [email or web address] <ELECTRONICALLY SIGNED> By: Mustapha Buchanan MD, [facility] 06/24/20 0720 1604 1604 Mustapha Buchanan MD, FACC /EPI
== END 2020-06-28 17:50 | DRG 374 ==
LOC: ER 14:08 → EROBS 19:30 → 4W 19:30 → 4S 06-23 02:58 → 4W 06-23 07:33
PROVIDERS: Emergency Medicine; Internal Medicine Hematology & Oncology; ADMIT Internal Medicine; ATTEND Internal Medicine
DX: C18.9 Malignant neoplasm of colon, unspecified (principal); E43 Unspecified severe protein-calorie malnutrition; N39.0 Urinary tract infection, site not specified; E87.2 Acidosis; Z20.828 Contact with and (suspected) exposure to other viral communicable diseases; T45.1X5A Adverse effect of antineoplastic and immunosuppressive drugs, initial encounter; I10 Essential (primary) hypertension; F32.9 Major depressive disorder, single episode, unspecified; K21.9 Gastro-esophageal reflux disease without esophagitis; E03.9 Hypothyroidism, unspecified; E86.0 Dehydration; E83.42 Hypomagnesemia; I95.9 Hypotension, unspecified; D69.6 Thrombocytopenia, unspecified; F17.210 Nicotine dependence, cigarettes, uncomplicated; D50.0 Iron deficiency anemia secondary to blood loss (chronic); Z85.038 Personal history of other malignant neoplasm of large intestine; Z90.49 Acquired absence of other specified parts of digestive tract
CPT/HCPCS: 10047

== ENCOUNTER 2020-06-28 14:29 | Inpatient (IN) | payer OTHER ==
[~2020-06-28] VITALS: Ht 160 cm; Wt 95.7 kg
--- NOTE | 2020-06-28 19:24 | NUR ---
ASSUMED CARE OPF PT AT 1800 WHEN PT BROUGHT TO UNIT. PT IS A&OX4 AND VITAL SIGNS ARE STABLE. RECEIVED REPORT AT THE BEDSIDE FROM IMANI. PT ASSISTED INTO BED BY NURSING STAFF. ADMISSION VITALS, HEIGHT AND WEIGHT ENTERED, ASSESSMENT AND HX COMPLETED, CONSENTS SIGNED, EDUCATION COMPLETED. FALL PRECAUTIONS IN PLACE, NIGHT NURSE AWARE TO CALL CONSULTS. NURSING WILL CONTINUE TO MONITOR.
[2020-06-28 20:00] VITALS: BP 110/53
--- NOTE | 2020-06-29 01:42 | NUR ---
PATIENT TURNS IN BED WELL TO USE BEDPAN, CONSIDERS HERSELF TOO WEAK TO GET UP TO BSC. TOLERATING MEDS WHOLE IN APPLESAUCE, APPRECIATES CALCIUM AND ESPECIALLY POTASSIUM SPLIT IN HALF. NOTES THAT MEGACE HAS REALLY HELPED HER APPETITE AND PLAN TO GIVE IN AM WHEN AVAILABLE. PLEASANT
[2020-06-29 08:00] VITALS: BP 110/48
--- NOTE | 2020-06-29 14:57 | NUR ---
ASSUMED CARE OF PT AT 0700. PT IS A&OX4 AND VITAL SIGNS ARE STABLE. PT DENIES PAIN AND PARTICIPATED IN SCHEDULED THERAPIES. AM ASSESSMENT NOTED +3 EDEMA TO THE BLE, SARITHA CABRERA UNABLE TO FIT DUE TO EDEMA AND ADITYA WRAPS WERE PLACED BY NURSING. AT APPROXIMATELY 1410 PT SPOUSE CAME TO THE NURSES STATION IN AN AGGRESSIVE MANNER AND BEGAN YELLING AT THIS NURSE BECAUSE PER HIS REPORT THE PATIENT HAD CALLED THE NURSES STATION "OVER AN HOUR AGO TO GET INTO BED" PER THE SPOUSE THE CALL LIGHT WAS ANSWERED AT THE NURSES STATION AND NO STAFF MEMBER HAD ENTERED THE ROOM. THIS NURSE IMMEDIATELY APPOLOPGIZED TO THE SPOUSE AND ASSURED HIM THAT THE PATIENT WOULD IMMEDIATELY BE ASSISTED TO BED. SPOUSE LEFT THE UNIT IMMEDIATELY AFTER AND WAS YELLING PROFANITY. PT WAS IMMEDIATELY ASSISTED INTO THE BED WHO APPOLOGIZED ABOUT THE SPOUSE. ENSURED THAT THE PATIENT WAS COMFORTABLE AND FALL PRECAUTIONS WERE IN PLACE. RETURNED TO THE NURSES STATION WHERE THERAPIST REPORTED A SIMILAR INCIDENT WITH THE SPOUSE IN THE HALLWAY AFTER THE SPOUSE LEFT THE UNIT. SPOUSE CALLED THE UNIT AND REQUESTED TO TALK TO THE NURSE AND STATED THE SAME CONCERNS. THIS NURSE REASSURED THE SPOUSE THAT THE PATIENT HAD BEEN ASSISTED INTO BED AND APPOLOGIZED FOR THE INCIDENT. PT RESTING IN THE BED AT THIS TIME. FALL PRECAUTIONS IN PLACE AND NURSING WILL CONTINUE TO MONITOR. HOURLY ROUNDING COMPLETED BY THIS RN.
[2020-06-29 20:00] VITALS: BP 106/60
--- NOTE | 2020-06-30 01:19 | NUR ---
PT ASSESSMENT COMPLETED AND VSS. MEDS GIVEN ORDERED AND WELL TOLERATED. FALL PRECAUTIONS IN PLACE. INC OF URINE. FLOWER CARE PROVIDED. ZGUARD APPLIED TO PRESSURE AREA ON BUTTOCK. TURNED WITH PILLOWS FOR COMFORT. SLEEPING WELL. DENIES NEEDS. WILL CONTINUE TO MONITOR.
[2020-06-30 05:51] LABS: HEMATOCRIT 25.7 % (37.0-47.0); MCH 28.8 pg (26.0-34.0); MCHC 31.1 g/dL (28.0-37.0); MCV 92.7 fL (80.0-100.0); RBC 2.77 mil/uL (4.20-5.00); RDW 23.6 % (10.5-14.5); WBC 18.8 thou/uL (4.0-11.0)
[2020-06-30 06:03] LABS: CALCIUM 8.1 mg/dL (8.5-10.1); POTASSIUM 4.9 mmol/L (3.5-5.1)
[2020-06-30 07:15] VITALS: BP 84/52
[2020-06-30 10:33] VITALS: BP 97/59
--- NOTE | 2020-06-30 12:29 | NUR ---
ASSUMED CARES AT 0700. PT VERY SLEEPY THIS AM, ALERT AND ORIENTED*4 BUT FORGETFUL. DENIES PAIN, HYPOTENSIVE THIS AM, TEDHOSE IN PLACE WILL CONTINUE TO MONITOR. ALL OTHER VITALS REMAIN STABLE. BLE EDEMA, EXTREMITIES ELEVATED. PORTAL CATH REMAINS INTACT AND PATENT. PT UP WITH MAX ASSIST, GB AND WALKER/W/C. PARTICIPATED WELL IN THERAPY. Q1H VISUAL CHECKS. CALL LIGHT WITHIN REACH. FALL PRECAUTIONS IN PLACE.
[2020-06-30 20:05] VITALS: BP 87/54
[2020-07-01 00:30] VITALS: BP 87/51
--- NOTE | 2020-07-01 01:31 | NUR ---
INCONTINENT URINE AND SMALL AMOUNT BM. TURNED TO SIDE, MOISTURE BARRIER TO REDNESS AND SCRATCHED BUTTOCK. TEDS REMOVED AT HS, SCDs ON. SYSTOLIC BLOOD PRESSURE 87 AT 1999 AND 0030, PATIENT STATES THAT SHE ALWAYS RUNS LOW.
[2020-07-01 08:00] VITALS: BP 96/57
--- NOTE | 2020-07-01 12:25 | NUR ---
ASSUMED CARE AT 0700. PT IS ALERT AND ORIENTATED. SLEPT LAST NIGHT. DENIES ANY PAIN. THIS MORNING COMPLAINED OF FEELING NAUSEATED BUT MANAGED TO TAKE ALL HER AM MEDS. SHE ATE 25% OF HER BREAKFAST. SHE WAS UNABLE TO GET OF OFF BED THIS MORNING WITH THERAPY DUE TO FEELING NAUSEATED. PO ZOFRAN 8 MG GIVEN. PT ALSO HAD A LARGE SOFT BM AND FELT MUCH BETTER. APPETITE IS BETTER FOR LUNCH AND ATE 50% OF HER MEAL. WILL CONT TO MONITOR.
[2020-07-01 17:42] VITALS: BP 96/57
--- NOTE | 2020-07-01 17:43 | NUR ---
Case opened to follow for dc planning. Pt admited to acute rehab with the goal of returning home with her spouse. She was recently here in acute care and dc'd home with [facility] ;however after a few days readmitted due to weakness and dehydration. The pt lives with her spouse and reports 5 steps into the home and another 5 with a railing up to the bedroom and bathroom. She has a rwalker and bsc at home. Her dtr lives close by and due to recent falls has had to come over and help her up off the floor. The pt's pcp is Dr. Martines. Therapy evaluations in progress. Team conference tomorrow. Will follow for reesumption of HH services at [facility].
[2020-07-01 19:03] VITALS: BP 85/53
--- NOTE | 2020-07-01 23:45 | NUR ---
PT ALERT AND ORIENTED X 4. INCONT OF URINE. RIGHT PORTACATH INTACT. PT TOOK HS MEDS IN APPLESAUCE WITHOUT DIFFICULTY. PT DENIES PAIN OR DISCOMFORT. BP 85/53, ASYMPTOMATIC. BED ALARM ON FOR SAFETY. PT APPEARS TO BE SLEEPING ON HOURLY ROUNDS.
[2020-07-02 08:11] VITALS: BP 97/56
--- NOTE | 2020-07-02 12:49 | NUR ---
Team Conference: pt psych eval in progress. pt is part-mod assist w/lower OT and supervision w/upper OT. pt transfer w/part-mod assist, 18ft w/FWW. per ST, pt will need assist w/pill. cm discuss assist w/pills and training one day next week btwn 8-2 to work w/ST. [employer] d/c date is 07/11/20. pt to d/c w/hh: RN, PT, OT, ST. pt current w/[facility].
--- NOTE | 2020-07-02 13:59 | NUR ---
FAXED CLINICAL UPDATE TO [facility] HH PT ON SERVICE PRIOR TO ADM. SPOKE WITH JANIE IN INTAKE THEY RECEIVED UPDATE.
[2020-07-02 15:16] VITALS: BP 92/52
[2020-07-02 20:00] VITALS: BP 90/47
--- NOTE | 2020-07-02 20:11 | NUR ---
ASSUMED CARE OF PT AT 0700. PT IS A&OX4 AND VITAL SIGNS ARE STABLE. PT DENIES PAIN AND PARTICIPATED IN SCHEDULED THERAPIES. +3 GENERALIZED EDEMA. LOOSE BOWEL MOVEMEN THIS SHIFT. SPOUSE AT THE BEDSIDE AND IS NON-COMPLIANT WITH MASK POLICY. PER PETER SHEPPARD WHO SPOKE WITH THE SPOUSE THIS EVENING, MASK IS TO BE WORN AT ALL TIMES AND COVER THE MOUTH AND NOSE AND IS NOT ALLOWED TO EAT ON THE UNIT. SPOUSE IS AWARE AND HAS RECEIVED HIS FINAL WARNING. IF FURTHER NON-COMPLIANCE IS OBSERVED, SECURITY IS TO BE NOTIFIED AND SPOUSE REMOVED FROM THE PREMESIS. FALL PRECAUTIONS IN PLACE AND NURSING WILL CONTINUE TO MONITOR.
--- NOTE | 2020-07-03 01:04 | NUR ---
ASSESSMENT: PT REMAIN ALERT AND ORIENT TIMES FOUR. DENIES PAIN, SOB AND N/V. INCONT TO URINE. VSS, BP LOW, AFEBRILE. RIGHT PORT-A-CATH INTACT. TOLERATING PO INTAKE. PT PLEASANT AND WATCHING TELEVISION. ACCORDING TO PT, SHE IS GETTING STRONGER SINCE ADMISSION AND THAT SHE IS LEARNING HOW TO DO THINGS FOR HER SELF. SLOW PROGRESS, WILL CONTINUE TO MONITOR.
[2020-07-03 07:15] VITALS: BP 104/55; BP 134/72
--- NOTE | 2020-07-03 11:01 | NUR ---
ASSUMED CARE AT 0700. PT IS ALERT AND ORIENTATED. DENIES ANY PAIN OR NAUSEA TODAY. SLEPT FAIRLY WELL. NO COMPLAINS OF DIARRHEA, HAD A BM THIS MORNING. APPETITE IS FAIR. DRINKS MOST OF HER PROTEIN SUPPLEMENTS. TOLERATES HER PILLS WELL WITH THIN LIQUID. PARTICIPATING IN THERAPIES. EDEMA 3+ TO BLE, SCD IN PLACE. UP WITH X 1 WITH GAIT BELT AND WALKER. R PORTACATH ASSESSED. DENIES ANY NUMBNESS OR TINGLING. CALL LIGHT WITHIN REACH. BED ALARM ON. CONT TO MONITOR.
--- NOTE | 2020-07-03 15:04 | NUR ---
Discharge Plan: pt is scheduled to d/c on 07/11 to home w/[facility]: RN, PT, OT & ST, as pt is current w/[facility]. Orders will need to faxed to @ d/c [phone]. pt Yazan sanchez, , will assist pt will pills and is scheduled for family training on Wednesday, from 0354-4374.
[2020-07-03 20:00] VITALS: BP 118/48
--- NOTE | 2020-07-04 00:56 | NUR ---
TOLERATING MEDS WITH WATER, TURNS TO SIDE, AND SCDs. MOISTURE BARRIER APPLIED TO BUTTOCKS. ACCESSED PORTACATH RIGHT CHEST.
[2020-07-04 07:49] VITALS: BP 101/57
--- NOTE | 2020-07-04 09:36 | NUR ---
ASSSUMED CARE AT 0700. PT IS ALERT AND ORIENTATED. SLEPT FAIRLY WELL. APPETITE IMPROVING. DENIES ANY NAUSEA OR PAIN. BOWEL FREQUENCY IS CONTROLLED WITH IMODIUM. DOUGLAS CATH ASSESSED. LUNGS ARE CLEAR. +2 EDEMA BLE, SARITHA HOSE IN PLACE. UP WITH ASSIST WITH GAIT BELT TO TOILET. PARTICIPATING IN THERAPY, PROGRESSING FAIRLY. WILL CONT TO MONITOR.
[2020-07-04 19:13] VITALS: BP 93/46
--- NOTE | 2020-07-04 23:13 | NUR ---
ASSUMED CARE OF PT AT 1915. PT IS A&OX3. IS ON ROOM AIR. DENIES PAIN. IS STABLE. IS UP WITH 1 ASSIST, GB, WALKER. FALL PRECAUTIONS & HOURLY ROUNDING CONTINUED THIS SHIFT. HAS SCATTERED BRUISING IN UPPER EXTREMITIES. EDEMA NOTED IN UPPER & LOWER EXTREMITIES. SCDS IN PLACE. TEDS ON DURING DAY OFF AT HS. TURNS SELF IN BED. IS CONTINENT TO B&B, BUT CAN BE INCONT AT TIMES. PT REPORTED THAT SHE CAN SELF TURNED & ASKED NOT TO BE AWAKENED DURING THE NIGHT. PT IS CURRENTLY ASLEEP. CALL LIGHT WITHIN REACH. WILL CONTINUE TO MONITOR. LABS VIEWED. VITALS ASSESSED.
[2020-07-05 05:55] LABS: CALCIUM 7.7 mg/dL (8.5-10.1); CREATININE 1.2 mg/dL (0.6-1.0); MAGNESIUM 1.6 mg/dL (1.8-2.4)
[2020-07-05 05:57] LABS: HEMATOCRIT 22.2 % (37.0-47.0); MCH 29.9 pg (26.0-34.0); MCHC 31.7 g/dL (28.0-37.0); MCV 94.3 fL (80.0-100.0); PLATELET COUNT 129 thou/uL (150-400); RBC 2.35 mil/uL (4.20-5.00); RDW 21.9 % (10.5-14.5); WBC 11.5 thou/uL (4.0-11.0)
[2020-07-05 06:45] LABS: ABSOLUTE NEUTROPHILS 9.8 thou/uL (1.4-8.2); ANISOCYTOSIS 2+; ATYPICAL LYMPHS 1 %; LARGE PLATELETS OCCASIONAL; METAMYELOCYTES 2 %; MYELOCYTES 3 %; POLYCHROMASIA 1+
[2020-07-05 07:20] VITALS: BP 121/59
--- NOTE | 2020-07-05 14:44 | NUR ---
ASSUMED CARE OF PT AT 0700. PT IS A&OX4 AND VITAL SIGNS ARE STABLE. PT DENIES PAIN AND PARTICIPATED IN CARES WITH NURSING. VISITOR ON THE UNIT THIS AFTERNOON, HAS BEEN GIVEN WARNING THIS SHIFT ABOUT MASK COMPLIANCE AND PER REPORTS HAS RECEIVED MULTIPLE WARNINGS ABOUT MASK COMPLIANCE OVER SEVERAL DAYS, HE HAS BEEN INFORMED THAT FURTHER NON-COMPLIANCE WILL NOT BE TOLERATED AND IF OBSERVED HE WILL BE REMOVED FROM THE UNIT. FALL PRECAUTIONS IN PLACE AND NURSING WILL CONTINUE TO MONITOR.
[2020-07-05 20:00] VITALS: BP 93/62
--- NOTE | 2020-07-06 00:41 | NUR ---
PT ALERT AND ORIENTED X 4. INCONT OF URINE IN LARGE AMTS. RIGHT PORTACATH INTACT. PT DENIES PAIN OR DISCOMFORT. BED ALARM ON FOR SAFETY. PT APPEARS TO BE SLEEPING ON HOURLY ROUNDS.
[2020-07-06 07:15] VITALS: BP 121/46
[2020-07-06 14:08] LABS: HEMOGLOBIN 8.3 gm/dL (12.0-15.0); MCH 29.4 pg (26.0-34.0); MCHC 30.8 g/dL (28.0-37.0); MCV 95.4 fL (80.0-100.0); RBC 2.83 mil/uL (4.20-5.00); RDW 21.6 % (10.5-14.5); WBC 19.8 thou/uL (4.0-11.0)
[2020-07-06 14:22] LABS: CALCIUM 7.9 mg/dL (8.5-10.1); CREATININE 1.3 mg/dL (0.6-1.0); MAGNESIUM 1.6 mg/dL (1.8-2.4); POTASSIUM 4.2 mmol/L (3.5-5.1)
--- NOTE | 2020-07-06 16:29 | NUR ---
ASSUMED CARE OF PT AT 0700. PT IS A&OX4 AND VITAL SIGNS ARE STABLE. PT DENIES PAIN. PER THERAPY, PT IS NOT PARTICIPATING FULLY, NOTED BY NURSING STAFF WELL. PT IS COMPLETELY INCONTINENT AND MAKES NO ATTEMPTS TO CALL STAFF WHEN INCONTINENT. HGB NOTED TO BE LOW ON LAST LAB DRAW, BROUGHT TO THE ATTENTION OF PROVIDER AND REPEAT LABS COMPLETED AND ORDERS OBTAINED FOR STOOL SAMPLE FOR OCCULT BLOOD, HGB INCREASED FROM PREVIOUS LAB, NO FURTHER ORDERS. ELEVATED WBC REPORTED TO PROVIDER WITH ORDERS TO OBTAIN CHEST X-RAY AND UA. IV MAG ORDERS FOR DECREASED MAG LEVELS. SPOUSE IS AT THE BEDSIDE THIS SHIFT, AND WAS GIVEN VERBAL WARNING BY DEEP FAT COOK FRY FOR NON-COMPLIANCE WITH MASK POLICY. FALL PRECAUTIONS IN PLACE AND NURSING WILL CONTINUE TO MONITOR.
--- NOTE | 2020-07-06 19:08 | NUR ---
AT APPROXIMATELY 1745 THIS NURSE AND CLINICAL PROJECT COORDINATOR ENTERED PATIENT ROOM WHERE SPOUSE WAS OBVERVED SITTING IN CHAIR BY THE WINDOW WITH MASK BELOW HIS NOSE. PER INSTRUCTIONS FROM HSE COORDINATOR WHO EARLIER IN THE SHIFT HAD SPOKEN WITH THE SPOUSE ABOUT THE MASK POLICY AND CONTINUED REPORTS OF NON-COMPLIANCE AND ISSUED A FINAL WARNING. HSE COORDINATOR INSTRUCTED THIS NURSE TO CONTACT SECURITY IF ANY FURTHER NON-COMPLIANCE WAS OBSERVED TO HAVE SPOUSE ESCORTED FROM THE BUILDING. SECURITY WAS IMMEDIATELY NOTIFIED AND NURSE AND TWO SECURITY OFFICERS ENTERED ROOM WHERE SECURITY INFORMED SPOUSE THAT HE WAS BEING ASKED TO LEAVE THE FACILITY. SPOUSE BECAME AGITATED AND ACCUSED STAFF OF PICKING ON HIM, GAS LINE SERVICER TOLD SPOUSE THAT HE HAD AN ISSUE WITH HIM YESTERDAY 07/05 IN THE ED WITH NON-COMPLIANCE WITH VISITOR POLICY, AND NURSE INFORMED SPOUSE THAT MANY VISITORS HAVE BEEN ISSUED WARNINGS AND WILL HAVE THE SAME CONSEQUENCES FOR NON-COMPLIANCE. PATIENT ATTEMPTED TO CALM THE SPOUSE TO WHICH THE SPOUSE SHOOK HIS FINGER IN THE FACE OF THE PATIENT AND SAID "NO, NO, NO". AFTER LEAVING THE ROOM WITH SECURITY AND THIS NURSE FOLLOWING THE SPOUSE TOLD SECURITY "STOP FOLLOWING ME." SECURITY INFORMED HIM THAT THEY WERE DOING THEIR JOB AND WOULD TAKE THE ELEVATOR WITH HIM. THE SPOUSE BECAME AGITATED AND HIT THE GARBAGE CAN AT THE ELEVATOR DOOR AND WAS ALSO HEARD TO HIT SOMETHING IN THE ELEVATOR PRIOR TO THE ELEVATOR DOOR CLOSING. HSE COORDINATOR WAS NOTIFIED OF INCIDENT AND INSTRUCTED NURSE THAT THE SPOUSE SHOULD NOT BE ALLOWED INTO THE BUILDING FOR THE REMAINDER OF HOSPITAL VISIT AND PT COULD HAVE VISITOR CHANGED AT THIS TIME DUE TO CIRCUMSTANCE. THIS NURSE SPOKE WITH THE PATIENT WHO REPORTED THAT SHE WAS UNDERSTANDING THAT THE STAFF ARE FOLLOWING POLICY, "HE IS ALWAYS LIKE THAT, EVEN A PATIENT", AND REQUESTED TO HAVE DAUGHTER SWITCHED TO DESIGNATED VISITOR. DESIGNATED VISITOR WAS UPDATED TO DAUGHTER. SPOUSE CALLED THE UNIT SHORTLY AFTER LEAVING PATIENT ROOM AND REQUESTED TO TALK TO THE HEAD NURSE. INFORMED SPOUSE THAT I WAS THE HEAD NURSE ON THE SHIFT AND TOLD THE STORY OF WHAT HAD OCCURED ON THE UNIT. SPOUSE WAS ACCUSING STAFF OF DISCRIMINATION AND TOLD OF AN INDIVIDUAL HE HAD SEEN WITHOUT A MASK ON. INFORMED SPOUSE THAT IF IT HAD BEEN OBSERVED BY STAFF THEN THE INDIVIDUAL WOULD HAVE BEEN GIVEN THE SAME INSTRUCTIONS AND WARNINGS WITH THE SAME POSSIBLE CONSEQUENCES. SPOUSE STATED "I AM SUING YOUR HOSPITAL AND I AM GOING TO GET PEOPLE FIRED." THIS NURSE TOLD THE SPOUSE THAT DUE TO BEHAVIOR OBSERVED BY STAFF AND SECURITY THAT AT THIS TIME HE WOULD NOT BE ALLOWED INTO THE HOSPITAL A VISITOR AND BECAME VERY ANGRY AND WAS PLACED ON SPEAKER PHONE WITH CLINICAL PROJECT COORDINATOR LISTENING TO CALL. "THIS IS FUCKING BULLSHIT. THEN YOU MAKE SURE MY DAUGHTER IS ABLE TO VISIT AND I WILL BE THERE ON WEDNESDAY TO TRUCK ENGINE ASSEMBLER MY AND I DONT CARE WHO THE FUCK IS THERE IF THEY TRY TO STOP ME I WILL KILL THE POLICE, SECURITY OR WHOEVER TRIES TO STOP ME. PEOPLE WILL GET HURT VERY BADLY IF THEY TRY AND STOP ME." IMMEDIATELY INSTRUCTED CLINICAL PROJECT COORDINATOR TO CALL SECURITY AND ATTEPTED TO KEEP SPOUSE ON THE PHONE UNTIL SECURITY COULD ARRIVE, BUT SPOUSE ABRUPTLY ENDED THE PHONE CALL AT THAT TIME. SECURITY IMMEDIATELY NOTIFIED AND HSE COORDINATOR WELL. DOOR GREATER NOTIFIED ABOUT VISITOR STATUS, AND NOTE LEFT FOR OTHER STAFF MEMBERS ABOUT THREATS MADE. DUE TO NATURE.
[2020-07-06 19:19] VITALS: BP 86/47
--- NOTE | 2020-07-07 04:00 | NUR ---
PATIENT ALERT AND ORIENTED X4. DENIES PAIN. COOPERATIVE WITH CARE. INCONTINENT DURING THE NIGHT AND DOES NOT CALL OUT. VSS. WILL CONTINUE TO MONITOR.
[2020-07-07 05:45] LABS: HEMATOCRIT 23.7 % (37.0-47.0); HEMOGLOBIN 7.5 gm/dL (12.0-15.0); MCH 29.8 pg (26.0-34.0); MCHC 31.7 g/dL (28.0-37.0); MCV 94.2 fL (80.0-100.0); RBC 2.52 mil/uL (4.20-5.00); RDW 20.9 % (10.5-14.5); WBC 12.7 thou/uL (4.0-11.0)
[2020-07-07 06:00] LABS: CALCIUM 8.1 mg/dL (8.5-10.1); CREATININE 1.1 mg/dL (0.6-1.0); MAGNESIUM 2.1 mg/dL (1.8-2.4); POTASSIUM 4.1 mmol/L (3.5-5.1)
[2020-07-07 07:15] VITALS: BP 86/48
--- NOTE | 2020-07-07 13:13 | NUR ---
ASSUMED CARES AT 0700. PT SLEEPY, ORIENTED*4 BUT FORGETFUL. DENIES PAIN AT THIS TIME. DENIES N&V. PT HYPOTENSIVE (86/48), PROVIDER NOTIFIED AND ORDERS RECEIVED AND ADMINISTERED. PT HAD *4 LARGE LOOSE STOOLS, INCONTINENT*1, LOPERAMIDE ADMINISTERED NEEDED AND SCHEDULED. OCCULT STOOL POSITIVE GI NOTIFIED, WILL SEE PT TOMORROW. PT INCONTINENT OF URINE THIS AM WELL. PORTAL CATH ON CHEST RIGHT REMAINS INTACT AND PATENT. PT CONTINUES TO HAVE BLE AND GENERALISED EDEMA, TEDHOSE IN PLACE AND EXTREMITIES ELEVATED. NURSING GAVE PT A SHOWER AFTER INCONTINENCE EPISODE. UP WITH 1 MIN ASSIST, GB AND WALKER. Q1H VISUAL CHECKS. CALL LIGHT WITHIN REACH. FALL PRECAUTIONS IN PLACE.
[2020-07-07 14:08] VITALS: BP 92/43
[2020-07-07 19:10] VITALS: BP 105/57
--- NOTE | 2020-07-08 01:46 | NUR ---
PATIENT HAS PHONE SET WITH AN 8PM ALARM TO REMIND HER TO ASK FOR EVENING MEDS PATIENT INFORMED OF NEED FOR UA AND WE WOULD BE GLAD TO PUT HER ON A BEDPAN ANYTIME. STATES SHE HAS MISSED SPECIPAN ON TOILET LAST TIME UP, 2nd SPECIPAN PLACED. HAS BEEN INCONTINENT OF URINE SINCE THEN, CLEANED, TURNED TO SIDE, AND MOISTURE BARRIER APPLIED TO BUTTOCKS. TAKING SIPS OF WATER WITH MEDS ONE AT A TIME. SARITHA HOSE OFF, PATIENT REFUSED SCDs, SHE USUALLY DOES NOT. STATES 5 LOOSE STOOLS ON DAY SHIFT, NONE TONIGHT
[2020-07-08 05:57] LABS: HEMATOCRIT 23.5 % (37.0-47.0); HEMOGLOBIN 7.3 gm/dL (12.0-15.0); MCH 29.7 pg (26.0-34.0); MCHC 31.3 g/dL (28.0-37.0); RBC 2.47 mil/uL (4.20-5.00); RDW 21.1 % (10.5-14.5); WBC 13.4 thou/uL (4.0-11.0)
[2020-07-08 06:18] LABS: CALCIUM 7.8 mg/dL (8.5-10.1); CREATININE 1.1 mg/dL (0.6-1.0); POTASSIUM 4.1 mmol/L (3.5-5.1)
[2020-07-08 07:19] VITALS: BP 89/46
--- NOTE | 2020-07-08 14:07 | NUR ---
ASSUMED CARES AT 0700. PT AWAKE, ALERT AND ORIENTED*4. DENIES PAIN. BP LOW 89/46, ASYMPTOMATIC. ALL OTHER VITALS STABLE. PORTAL CATH REMAINS INTACT AND PATENT. PT CONTINUES TO HAVE BUE AND BLE EDEMA, SARITHA HOSE IN PLACE AND EXTREMITIES ELEVATED. PT INCONTINENT ON BLADDER THIS AM. *1 LARGE LOOSE STOOL, IMMODIUM ADMISISTERED ORDERED. UP WITH 1 MIN-MOD ASSIST, GB AND WALKER AND TOLERATED WELL. Q1H VISUAL CHECKS. CALL LIGHT WITHIN REACH. FALL PRECAUTIONS IN PLACE
[2020-07-08 19:05] VITALS: BP 102/48
--- NOTE | 2020-07-09 01:54 | NUR ---
INCONTINENT URINE, TURNED TO SIDE, HER OWN COMPRESSION SOCKS OFF AT HS PRIOR PLACING SCDs ON OVERNIGHT. AWARE OF MEDS AND THEIR USES, BUT DID NOT ASK FOR THEM AT BEDTIME. FATOU CALLED AND STATES HE WOULD LIKE TO HAVE DOCTOR CALL HIM WITH UPDATE ON HIS CELL [phone] HE IS WORRIED THAT SHE WILL NOT BE STRONG ENOUGH TO COME HOME ON WEDNESDAY AND IS ACTING IF SHE HAS HAD A "STROKE OR SOMETHING"
[2020-07-09 05:51] LABS: HEMATOCRIT 21.7 % (37.0-47.0); HEMOGLOBIN 6.9 gm/dL (12.0-15.0); MCH 30.1 pg (26.0-34.0); MCHC 31.6 g/dL (28.0-37.0); MCV 95.3 fL (80.0-100.0); RBC 2.28 mil/uL (4.20-5.00); RDW 20.7 % (10.5-14.5); WBC 9.5 thou/uL (4.0-11.0)
[2020-07-09 06:18] LABS: CALCIUM 7.9 mg/dL (8.5-10.1); MAGNESIUM 1.8 mg/dL (1.8-2.4)
[2020-07-09 07:38] VITALS: BP 105/53
[2020-07-09 10:27] LABS: URINE BILIRUBIN NEGATIVE (Negative); URINE BLOOD NEGATIVE (Negative); URINE CLARITY HAZY; URINE COLOR AMBER; URINE GLUCOSE-RANDOM* NEGATIVE (Negative); URINE KETONES NEGATIVE (Negative); URINE LEUKOCYTES-REFLEX TRACE (Negative); URINE NITRITE-REFLEX NEGATIVE (Negative); URINE PROTEIN (DIPSTICK) NEGATIVE (Negative); URINE UROBILINOGEN 0.2 E.U./dl (0.2-1.0)
[2020-07-09 11:04] VITALS: BP 100/60; BP 99/58
--- NOTE | 2020-07-09 12:39 | NUR ---
team conference: consult for EDG or colonoscopy. Incontinent of bladder. spouse got a bed harman. pt's dtr, Yelitza agreed to help with bills and medication. d/c plan: d/c date of 07/11 may be pushed until pt is medically cleared. plan maybe to transfer pt back to acute.
--- NOTE | 2020-07-09 14:46 | NUR ---
ASSUMED CARES AT 0700. PT AWAKE, ALERT AND ORIENTED*4. DENIES PAIN. BP LOW WHEN PT WAS WORKING WITH PHYSICAL THERAPY (SBP 74), HGB 6.9 TODAY, AND PT C/O DIZZINESS. ORDERS RECEIVED FOR BLOOD TRANSFUSION, CONSENTS COMPLETED AND TRANSFUSION COMPLETED. PT TOLERATED WELL, NO REACTION NOTED. PORTAL CATH REMAINS DRY, INTACT AND PATENT. PT CONTINUES TO HAVE BLE AND BUE EDEMA, REFUSED THIGH HIGH TEDHOSE AND BUT WEARING HER HOME KNEE HIGH COMPRESSION SOCKS. INCONTINENT*1 THIS AM, CLEANED AND BEDDINGS CHANGED. SACRAL AREA WOUND CLEANED AND Z-GUARD APPLIED. UP WITH 1 MIN ASSIST, GB AND WALKER AND TOLERATED WELL. Q1H VISUAL CHECKS. CALL LIGHT WITHIN REACH. FALL PRECAUTIONS IN PLACE
--- NOTE | 2020-07-09 16:43 | NUR ---
CM FAXED REFERRAL TO [facility] PT'S SPOUSE, FATOU, EXPRESSED HE IS CONSIDER OTHER OPTIONS FOR PT.
[2020-07-09 19:11] VITALS: BP 89/55
[2020-07-09 19:13] VITALS: BP 89/55
[2020-07-09 22:00] VITALS: BP 94/58
--- NOTE | 2020-07-10 02:22 | NUR ---
ASSUMED CARE OF PT AT 1900. PT IS A&OX4, HYPOTENSION NOTED WITH VITALS CHECK AT START OF SHIFT, PT DENIES S/S, IMPROVED ON RECHECK. CALLED SPOUSE AT START OF SHIFT PER SPOUSE REQUEST, NO ANSWER BUT MESSAGE LEFT. PT RESTING IN BED, FAILS TO CALL FOR TOILETING AND IS TOTALLY INCONTINENT. AFFECT IS FLAT AND PT MINIMALLY PARTICIPATING IN CARES. FALL PRECAUTIONS IN PLACE AND NURSING WILL CONTINUE TO MONITOR.
[2020-07-10 06:20] LABS: HEMATOCRIT 29.8 % (37.0-47.0); MCH 29.7 pg (26.0-34.0); MCHC 31.1 g/dL (28.0-37.0); MCV 95.6 fL (80.0-100.0); RBC 3.11 mil/uL (4.20-5.00); RDW 20.1 % (10.5-14.5); WBC 13.2 thou/uL (4.0-11.0)
[2020-07-10 06:42] LABS: HEMOGLOBIN 9.3 gm/dL (12.0-15.0)
[2020-07-10 06:47] LABS: CREATININE 1.2 mg/dL (0.6-1.0); MAGNESIUM 1.8 mg/dL (1.8-2.4); POTASSIUM 3.7 mmol/L (3.5-5.1)
[2020-07-10 07:00] VITALS: BP 87/52
--- NOTE | 2020-07-10 10:40 | NUR ---
ASSUMED CARE AT 0700. PATIENT IS ALERT AND ORIENTED X4. PATIENT GOMES'S, TOY PAINTER ARE EQUAL. LUNGS ARE CLEAR AND DEMINISHED. ABD IS SOFT WITH BSX4. JOSE WAS INCONTINENT OF STOOL THIS A.M. HER PORTACATH WILL NOT DRAW. DRESSISNG NEEDS TO BE CHANGED TO THE PORTACATH. IV TEAM NOTIFED. H/H IMPROVED AFTER THE BLOOD YESTERDAY. BP REMAINS LOW. ENCOURAGED PATIENT TO INCREASE PO FLUID INTAKE. FALL AND SAFETY PROTOCOLS IN PLACE. DENIES PAIN. CONTINUES TO PROGRESS TOWARDS D/C GOALS. WILL CONTINUE TO MONITER.
--- NOTE | 2020-07-10 12:06 | NUR ---
JACEY [facility] CONFIRMED THE CAN "CLINICALLY" ACCEPT PT, THERE WILL BE A $31/DAY COPAY. CM LFT VM FOR PT'S SPOUSE, FATOU.
--- NOTE | 2020-07-10 13:27 | NUR ---
VASCULAR ACCESS CALLED ABOUT NO BR ON PORTACATH. PT HAS BEEN HERE SINCE 06/28/20, NOT ON OUR LIST OR SEEN. MARTIN NEEDLE CHANGED TODAY WITH BRISK BR. OLD NEEDLE HAD SMALL DMITRI PINTO DRAINAGE ON NEEDLE THAT WAS CULTURED. ALSO DISCUSSED WITH MARIELLE WILEY THAT BLOOD CULTURES NEED TO BE DONE.
[2020-07-10 19:42] VITALS: BP 90/40
[2020-07-11 07:15] VITALS: BP 101/52
--- NOTE | 2020-07-11 07:51 | NUR ---
ASSESSMENT: PT HAS A INCIDENT (ASSISTED FALL TO THE FLOOR) IN THE BATHROOM, TRANSFERRING FROM THE COMMODE TO THE WALKER. NO INJURY ASSESSED. NO PAIN NOR INJURY PER PT'S STATEMENT. PT WAS WITNESSED BY TECH. CARBAJAL, AFEBRILE. SEE INCIDENT REPORT FILED.
--- NOTE | 2020-07-11 12:07 | NUR ---
Per logistics program manager patient is to remain inpatient until cleared by ID. Plan at time of discharge is to [facility] as family member Cristel [phone] confirms family is able to pay $31.00 co-pay at [facility]. NOTE: Per Marta at [facility] the patient has been accepted.
[2020-07-11 15:17] LABS: ALBUMIN 2.2 g/dL (3.4-5.0); CALCIUM 7.9 mg/dL (8.5-10.1); CREATININE 1.2 mg/dL (0.6-1.0); TOTAL BILIRUBIN 0.6 mg/dL (0.2-1.0); TOTAL PROTEIN 4.6 g/dL (6.4-8.2)
[2020-07-11 19:51] LABS: HEMATOCRIT 32.3 % (37.0-47.0); MCH 29.8 pg (26.0-34.0); PLATELET COUNT 127 thou/uL (150-400); RBC 3.36 mil/uL (4.20-5.00); RDW 19.9 % (10.5-14.5); WBC 21.7 thou/uL (4.0-11.0)
[2020-07-11 20:00] VITALS: BP 85/53
[2020-07-11 20:10] LABS: ANISOCYTOSIS 1+
--- NOTE | 2020-07-12 02:15 | NUR ---
UP TO TOILET WITH GAIT BELT AND WALKER AND CONTACT GUARD ASSIST, REQUIRES EXTRA TIME. Z-GUARD TO REDDENED BUTTOCKS AFTER PINTO-GREEN BM WIPED WELL BY PATIENT. PATIENT AWARE OF NEED FOR PORTACATH REMOVAL AND SHE HAS BEEN NPO SINCE MIDNIGHT.
[2020-07-12 07:33] VITALS: BP 108/58
--- NOTE | 2020-07-12 09:02 | HC ---
[facility] [place] [address] CONSULTATION Name: EVELINE HUITRON Room #: 503-P ADM IN M.R.#: [id number] Admission: 06/28/20 Attend Phys: Josue Mejia MD Discharge: Date of : 56 Report #: [id number] THIS REPORT FOR: cc: Rey Martines,Jeremy Meade MD ~ DATE OF SERVICE: 07/11/2020 INFECTIOUS DISEASE CONSULTATION ATTENDING PHYSICIAN: Dr. Mejia. REASON FOR EVALUATION: Gram-positive cocci, septicemia, suspected Staphylococcus due to indwelling Port-A-Cath source. HISTORY OF SUBJECTIVE: Chart reviewed, patient examined. This is a 60-year-old woman with colon cancer, stage III, admitted on this month with generalized debility, weakness, refractory diarrhea, chronic anemia, electrolyte abnormalities. She was stabilized and transferred to the rehabilitation unit, had been undergoing therapy due to concern about her change in status. Blood cultures were collected on the now growing 2 out 2 with Gram-positive cocci in clusters suggestive of Staphylococcus. It is notable she has an implanted Port-A-Cath in the right chest. She described as pruritic at times. She denies significant illness at this point, specifically denies fevers or chills. Appetite has been satisfactory. No pulmonary or gastrointestinal related complaints. He was empirically dosed with vancomycin. ALLERGIES: None known. MEDICATIONS: Include cholecalciferol, meperidine, psyllium, acetaminophen, duloxetine, levothyroxine, ferrous sulfate, megestrol. PAST MEDICAL HISTORY: As described above, stage III colon cancer, history of chronic anemia, hypertension, depression, previous history of gastric bypass surgery, hypothyroidism. SOCIAL HISTORY: Former smoker. No ethanol. No illicit drug use. FAMILY HISTORY: Noncontributory. REVIEW OF SYSTEMS: Otherwise, unremarkable 10-point review of systems. PHYSICAL EXAMINATION: GENERAL: She appears somewhat chronically ill, undernourished, is pleasant, cooperative. She is lucid, [id number]-[id number] distress. [address] [address] CONSULTATION Name: EVELINE HUITRON Room #: 503-P [facility] IN M.R.#: [id number] Admission: 06/28/20 Attend Phys: Josue Mejia MD Discharge: Date of : 56 Report #: [id number] VITAL SIGNS: Temperature 97.9, pulse 80, respirations 18, blood pressure 101/52. SKIN: Warm, dry, no rashes. HEENT: Normocephalic. Extraocular muscles intact. NECK: Supple. LUNGS: Generally clear breath sounds. HEART: Regular. I do not appreciate any murmur. ABDOMEN: Soft, nontender. Port-A-Cath site is otherwise unremarkable superficially. GENITOURINARY AND RECTAL: Deferred. LABORATORY DATA: Blood cultures as described above. Culture from the port site was negative thus far. Electrolytes: Sodium 139, potassium 3.7, chloride 110, bicarbonate is 19, anion gap of 10, BUN and creatinine 24 and 1.2, glucose of 66. CBC: White count of 13.2, H and H 9.3 and 61.9 post-transfusion, platelet count of 106. Urinalysis collected on the was otherwise unremarkable. ASSESSMENT AND PLAN: Gram-positive cocci, septicemia, likely line related in the setting of a colon cancer requiring further chemotherapy. She does have generalized debility and malnourishment as well. I think the prudent course would be to remove the Port-A-Cath. She does have peripheral IV access and after removal, we will repeat blood cultures. Await identification of the organism. Certainly appears to be a Staphylococcus. We will monitor expectantly. Add incentive spirometry. Continue empiric therapy with vancomycin. <ELECTRONICALLY SIGNED> By: Jeremy Lauren MD 07/12/20 0902 1511 0044 Jeremy Lauren MD /nt
--- NOTE | 2020-07-12 11:43 | NUR ---
ASSUMED CARE AT 0700. PT IS ALERT AND ORIENTATED. SLEPT WELL WITH NO COMPLAINS OF NAUSEA OR PAIN. PT HAS BEEN NPO SINCE MIDNIGHT. PLAN FOR PORTACATH REMOVAL TODAY BY SURGERY TODAY. ALL AM MEDS HELD. SB DR NAYLOR (SURGERY) AND PORTACATH REMOVED AND PT TOLERATED PROCEDURE WELL. IV SITE INFILTRATED PER NIGHT HS AND MANAGED TO GET HER VANCOMYCIN INFUSED. SPOKE TO DR SIERRA (ID) TO CONTINUE WITH IV VANCO AND OK TO GET A PERIPHERAL IV FOR NOW TILL NEW PORTACATH WILL BE PLACED NEXT WEEK. PT IS AFEBRILE, VSS. WILL CONT TO MONITOR.
[2020-07-12 20:00] VITALS: BP 100/48
--- NOTE | 2020-07-12 20:56 | NUR ---
ASSUMED CARE AT 1900. PATIENT IS ALERT AND ORIENTED X4. PATIENT GOMES'S, FRAUD MANAGER ARE EQUAL. LUNGS ARE CLEAR AND DEMINISHED. PATEINT Danny INFILTRATED AND VANCO IVPB WAS NOT INFUSED. DR. ACRIAS NOTIFIED AND PATIENT WAS STARTED ON ZYVOX 600MG PO BID, UNTIL IV CAN BE RESTARTED IN A.M. BY IV TEAM. PATIENT TOLERATED PO ABT WITHOUT ADVERSE AFFECTS. FALL AND SAFETY PROTOCOLS IN PLACE. DENIES PAIN. DRESSING OVER PORTACATH SITE IS DRY AND INTACK. PORTACATH WAS REMOVED BY DR. NAYLOR THIS A.M. PATIENT IS INCONTINENT OF B/B AT TIMES. PATIENT HAS 2+ LOWER EXTREMITY EDEMA. WILL CONTINUE TO MONITER.
[2020-07-13 07:36] VITALS: BP 96/69
--- NOTE | 2020-07-13 09:48 | NUR ---
ASSUMED CARE AT 0700. PT IS ALERT AND ORIENTATED. SLEPT WELL LAST NIGHT. PT IS FEELING MUCH BETTER TODAY THAN THE NIGHT BEFORE. DENIES ANY PAIN. HAD A MODERATE BM TODAY. HER 1800 VANCOMYCIN DOSE WAS HELD LAST NIGHT DUE TO IV INFILTRATED, DR SIERRA WAS NOTIFIED AND ORDERS FOR PO ZYVOX GIVEN SCHEDULED. IV TEAM WILL NOT BE IN TILL 1230. TO CALL PHARMACY WHEN IV IS PUT IN IN ORDER TO RESUME IV VANCOMYCIN. PARTICIPATING IN THERAPY. R CHEST DOUGLAS CATH REMOVED YESTERDAY AND DRESSING CHANGED.
--- NOTE | 2020-07-13 14:59 | NUR ---
CONSULTED TO REPLACE A PIV EVERY 12 HOURS, UNABLE TO FIND ACCESS. DISCUSSED A MIDLINE WITH THE PATIENT UNTIL THE PORT CAN BE REPLACED. DICUSSED THE DANGELO VS BENIFITS. A #4F POWER INJECTABLE MIDLINE WAS PLACED PER HOSPITAL POLICY WITHOUT DIFFICULTY. LINE SEVURED AND RELEASED FOR USE
[2020-07-13 20:50] VITALS: BP 84/51
--- NOTE | 2020-07-14 00:23 | NUR ---
ASSUMED CARE OF PT AT 1915 ON 07/13/20. PT IS A&OX4. IS ON ROOM AIR. IS STABLE. DENIES PAIN. IS UP WITH 1 ASSIST, GB, WALKER. FALL PRECAUTION & HOURLY ROUNDING CONTINUED THIS SHIFT. VITALS ASSESSED. LABS REVIEWED. PT HAS SCATTERED BRUISING IN UPPER EXTREMITIES & EDEMA NOTED IN UPPER & LOWER EXTREMITIES. ELEVATED. PT IS ABLE TO TURN SELF IN BED. IS CURRENTLY SLEEPING. CALL LIGHT WITHIN REACH. WILL CONTINUE TO MONITOR.
[2020-07-14 06:03] LABS: ABSOLUTE NEUTROPHILS 6.5 thou/uL (1.4-8.2); BASOPHILS 0.3 % (0.0-2.0); EOSINOPHILS 2.5 % (0.0-3.0); HEMATOCRIT 29.7 % (37.0-47.0); HEMOGLOBIN 9.3 gm/dL (12.0-15.0); LYMPHOCYTES 13.7 % (24.0-44.0); MCH 29.9 pg (26.0-34.0); MCHC 31.1 g/dL (28.0-37.0); MCV 95.9 fL (80.0-100.0); MONOCYTES 7.4 % (1.0-8.0); POLYS 76.1 % (36.0-66.0); RDW 18.5 % (10.5-14.5); WBC 8.5 thou/uL (4.0-11.0)
[2020-07-14 06:22] LABS: ALBUMIN 1.9 g/dL (3.4-5.0); CALCIUM 8.1 mg/dL (8.5-10.1); CREATININE 1.1 mg/dL (0.6-1.0); MAGNESIUM 1.8 mg/dL (1.8-2.4); PHOSPHORUS 3.5 mg/dL (2.6-4.7); POTASSIUM 4.6 mmol/L (3.5-5.1); TOTAL BILIRUBIN 0.5 mg/dL (0.2-1.0); TOTAL PROTEIN 4.3 g/dL (6.4-8.2)
[2020-07-14 08:00] VITALS: BP 96/57
[2020-07-14 10:11] LABS: ANISOCYTOSIS 2+
[2020-07-14 10:12] LABS: PLATELET COUNT 106 thou/uL (150-400)
--- NOTE | 2020-07-14 10:16 | NUR ---
ASSUMED CARE AT 0700. PATIENT IS ALERT AND ORIENTEDX4. PATIENT GOMES'S, MOTH PROOFER ARE EQUAL. LUNGS ARE CLEAR AND DEMINISHED. ABD IS SOFT WITH BSX4. PATIENT HAD BM TODAY. PATIENT VOIDED ZULEMA COLORED URINE. FALL AND SAFETY PROTOCOLS IN PLACE. DENIES PAIN AT THIS TIME. CONTINUES TO PROGRESS TOWARDS D/C GOALS. IV MIDLINE IN PLACE. PATIENT CONTINUES ON IV ABT. NO ADVERSE AFFECTS NOTED. UP WITH ONE STAFF AND GAIT BELT AND WALKER TO BATHROOM. WILL CONTINUE TO MONITER.
[2020-07-14 19:30] VITALS: BP 96/72
--- NOTE | 2020-07-15 00:18 | NUR ---
PT ALERT AND ORIENTED X 4. AMB TO BR WITH WALKER AND ASSIST X 1. VERY UNSTEADY. INCONT OF STOOL AND URINE IN LARGE AMTS. 2 LOOSE STOOLS SO FAR TONIGHT. RIGHT MIDLINE IV INTACT AND PATENT. RIGHT CHEST WITH 2 STERI-STRIPS WHICH ARE DRY AND INTACT. ADITYA WRAPS INTACT TO BILAT LE'S. PT DENIES PAIN OR DISCOMFORT. BED ALARM ON FOR SAFETY. PT APPEARS TO BE SLEEPING ON HOURLY ROUNDS.
[2020-07-15 07:17] VITALS: BP 95/52
--- NOTE | 2020-07-15 08:12 | NUR ---
ASSUMED CARE AT 0700. PATIENT IS ALERT AND ORIENTEDX4. PATIENT GOMES'S, MEDICAL DEVICE SALES ARE EQUAL. LUNGS ARE CLEAR AND DEMINISHED. ABD IS SOFT WITH BSX4. PATIENT HAD BM TODAY AND WAS INCONTINENT OF BM/URINE IN HER BRIEF. UP IN BED FOR MEALS. FALL AND SAFETY PROTOCOLS IN PLACE. DENIES PAIN AT THIS TIME. CONTINUES TO PROGRESS SLOWLY TOWARDS D/C GOALS. PATIENT HAS MIDLINE IN HER RIGHT UPPER ARM. PATENT REMAINS ON IV ABT. WILL CONTINUE TO MONITER.
[2020-07-15 10:52] VITALS: BP 95/52
--- NOTE | 2020-07-15 11:12 | NUR ---
CÉSAR reviewed chart and spoke with nursing. Received consult stating discharge to SNF is anticipated for tomorrow, 07/16. Pt had stated to nursing that she did not want to discharge to [facility] as planned. CÉSAR placed call to pt's room. No answer. CÉSAR spoke with pt's dtr, Cristel, via phone to discuss discharge. Per Cristel, family had started looking at reviews over the weekend and would like alternate options. Referral had also been sent to [facility]. CÉSAR spoke with Vanessa in admissions at [facility], who states that they do not accept as primary insurance. SW updated pt's dtr, who would like to review other options. SW met with pt at bedside and left list of in-network SNFs for review. Pt's dtr to be at [facility] this afternoon. Will review list and notify SW of preference then referral will be sent. Pt's dtr is aware of discharge planned for tomorrow. CÉSAR updated [place] post-acute liaison. CÉSAR is following to assist as needed with discharge planning.
--- NOTE | 2020-07-15 11:20 | NUR ---
VOICEMAIL MESSAGE LEFT ON THE CELL PHONE FOR LESLYE HUITRON, PT'S , REGARDING HIS REQUEST FOR A VIDEO CHAT WITH THE PATIENT. ACCORDING TO THE PATIENT, LESLYE DOESN'T HAVE VIDEO CHAT CAPABILITIES ON HIS COMPUTER OR PHONE. HOWEVER, A VM WAS LEFT ON HIS PHONE TO VERIFY THIS. IF THERE IS NO VIDEO CAPABILITY ON LESLYE'S END, WE WILL NOT BE ABLE TO USE DOXYME OR FACETIME. THIS WAS EXPLAINED TO THE PATIENT, WHO STATED THAT SHE WAS OK WITH THIS, AND WOULD JUST SEE HIM AFTER SHE COMPLETES HER REHAB. SHE SAID THAT SHE APPRECIATED HAVING HER DAUGHTER THE DESIGNATED VISITOR, BECAUSE HER DAUGHTER WAS ENGAGED IN HER CARE AND INVESTED IN HER RECOVERY.
[2020-07-15] MEDS ORDERED: VITAMIN D325 MC1 PO (12:39)
--- NOTE | 2020-07-15 13:05 | HC ---
[facility] [place] [address] CONSULTATION Name: EVELINE HUITRON Room #: 503-P ADM IN M.R.#: [id number] Admission: 06/28/20 Attend Phys: Josue Mejia MD Discharge: Date of : 56 Report #: [id number] THIS REPORT FOR: cc: Rey Martines Steven F. DO Deutch,Chris Braxton PhD ~ DATE OF SERVICE: 07/13/2020 BEHAVIORAL STATUS EXAM ATTENDING PHYSICIAN: Josue Mejia MD SUPERVISOR SPINNING: Chris Humphreys, PhD CLINICAL PRESENTATION: The patient is a 60-year-old female admitted to the rehabilitation unit for comprehensive inpatient rehabilitation program to improve functional mobility and activities of daily living and self-care secondary to medical complexity and generalized debility. She is reported to have been admitted to the hospital with diarrhea and weakness. She has a history of colon cancer and has been receivng chemotherapy. The patient has also thrombocytopenia and anemia. Her assessment on admission to the rehab unit is medical complexity with generalized debilitation, colon cancer, status post right hemicolectomy on 03/11/2020 on chemotherapy, persistent diarrhea, which has improved, moderate to severe malnutrition with replacement of hypomagnesemia and low phosphorus, stage 3 colon cancer, normocytic anemia, GERD, urinary tract infection, on antibiotics and cognitive concerns. A slowness in her response has led to possible concomitant multifocal encephalopathy. Neuropsychological consultation was requested to provide assistance in the assessment of cognitive and emotional status and to provide recommendations and services. Prior to this most recent medical event, she was living at home with her . She has one child that is living in the [place] area. Her daughter is and indicated that she would be available for help if needed. The patient reports having problems with balance and and falling. She discontinued driving because of concern about safety. Her spouse is taking on increasing assistance with activities of daily living including cooking. The patient had a period of depression for which she has been taking an antidepressant, that is described as helpful. She is a high school graduate with 2 years of community college. 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 [facility] [address] [place] [address] CONSULTATION Name: EVELINE HUITRON Room #: 503-P [facility] IN M.R.#: [id number] Admission: 06/28/20 Attend Phys: Josue Mejia MD Discharge: Date of : 56 Report #: [id number] TECHNIQUES UTILIZED: Clinical interview, review of medical records, staff consultation and behavioral observation, mini mental status exam 2 standard version, verbal fluency assessment (letter and category). EXAMINATION FINDINGS: The patient was alert and cooperative with the assessment. She accurately described events surrounding her admission. There is no evidence of aphasia. Her thoughts are logical and goal oriented. There is no evidence of thought disorder. She does not report auditory or visual hallucinations. She reports having a period of anxiety and depression for which she started taking an antidepressant. Her primary symptoms include memory and word finding, fatigue and tiredness. There is no difficulty with sleep or appetite. Performance on the MMSE 2 brief version is within normal limits with a raw score of 14/16. The patient was 3/3 for initial registration, 5/5 for orientation to time and place. She was 1/3 for immediate recall of 3 items after a brief time delay and distraction. Performance on the MMSE 2 standard version is in the low average range with a raw score of 25/30 and T score of 40, which is at the 16th percentile. She was 2/5 for serial sevens, 2/2 for naming, 1/1 for repetition, 3/3 for comprehension and reading. She could dictate a sentence. Letter fluency was extremely low with a raw score of 9, T score of 19 and percentile rank of less than 1. Category fluency was extremely low with a raw score of 13 and T score of 19, which is less than 1. Overall, total fluency was extremely low with a raw score of 22, T score of 19, percentile rank of less than 1. The patient was alert and oriented. Difficulty however is noted with attention/concentration and thought organization associated with verbal fluency, which often indicates executive dysfunction. DIAGNOSTIC IMPRESSION: Mild neurocognitive disorder, likely due to medical etiology and possible resolving delirium from electrolyte changes. Unspecified depressive disorder -- managed well with antidepressant medication. RECOMMENDATIONS: The patient will likely require increased assistance with aspects of self-care including assistance with management of medications. The use of compensatory strategies to aid concentration, memory and thought [address] [address] CONSULTATION Name: PARTH HUITRONINE Room #: 503-P [facility] IN .R.#: [id number] Admission: 06/28/20 Attend Phys: Josue Mejia MD Discharge: Date of : 56 Report #: [id number] organization will likely be helpful. She indicated having been independent with managing medication prior to this medical event; however, it may be beneficial that family member assist her upon her return home. Psychological strategies for improving mood include focusng on strengths and resources that can assist with adjustment and opitimism regarding her treatment and recovery. Thank you very much for allowing me to provide the consultation on this patient. <ELECTRONICALLY SIGNED> By: Chris Humphreys, PhD 07/15/20 1305 20 26 Chris Humphreys, PhD /nt
--- NOTE | 2020-07-15 15:28 | NUR ---
SPOKE WITH HARI AT [facility] PT ON SERVICE WITH THEM MANUFACTURING OPERATOR LET HER KNOW THAT PT WILL DC TO SNF ([facility]) AND THAT WE WOULD PASS IT ON THAT PT WAS ON SERVICE WITH THEM MANUFACTURING OPERATOR.
[2020-07-15 19:45] VITALS: BP 102/59
--- NOTE | 2020-07-16 01:14 | NUR ---
PT ALERT AND ORIENTED X 4. RIGHT MIDLINE IV INTACT. INCONT OF URINE AND STOOL. ADITYA WRAPS INTACT TO BILAT LE'S. PT DENIES PAIN OR DISCOMFORT. BED ALARM ON FOR SAFETY. PT APPEARS TO BE SLEEPING ON HOURLY ROUNDS.
[2020-07-16 07:32] VITALS: BP 90/54
[2020-07-16] MEDS ORDERED: VITAMIN C1000 MG PO (08:19)
[2020-07-16] MEDS ORDERED: ZINC SULFATE 2220 MG PO (08:19)
[2020-07-16] MEDS ORDERED: VANCOMYCIN1 GM/2002 IV (08:20)
[2020-07-16] MEDS ORDERED: LASIX 40 MG TAB40 MG PO (09:29)
[2020-07-16 10:15] VITALS: BP 111/57
--- NOTE | 2020-07-16 10:57 | NUR ---
CM SENT REFERRALS TO THE FOLLOWING SNF, PT'S DTR LEFT A LIST OF PREFERENCES W/PT: [facility]
--- NOTE | 2020-07-16 11:41 | EKG ---
[address] [address] ELECTROCARDIOGRAM REPORT Name: EVELINE HUITRON Room #: 503- ADM IN M.R.#: [id number] Admission: 06/28/20 Attend Phys: Josue Mejia MD Discharge: Date of : 56 Report #: [id number] [facility] Test Date: 2020-07-16 Test Time: 11:34:42 Pat Name: EVELINE HUITRON Department: Room: [facility] Gender: F General Ledger Accountant: AMELIA : 1960 Requested By: Lucie Davis Order Number: [id number] MD: Mustapha Buchanan Measurements Intervals Belle Rate: 87 P: 64 DE: 132 QRS: -8 QRSD: 91 T: 26 QT: 384 QTc: 462 Interpretive Statements Sinus rhythm Nonspecific T abnormalities, anterior leads Baseline wander in lead(s) V4,V5 Compared to ECG 06/22/2020 16:04:26 T-wave abnormality now present Intraventricular conduction delay no longer present Electronically Signed On 07-16-2020 11:41:41 ELECTRONIC BENCH TECHNICIAN by Mustapha Buchanan [email or web address] <ELECTRONICALLY SIGNED> By: Mustapha Buchanan MD, [facility] 07/16/20 1141 1134 1134 Mustapha Buchanan MD, [facility] /EPI
--- NOTE | 2020-07-16 12:31 | NUR ---
PT ALERT AND ORIENTED TIMES FOUR. VSS. PT DENIES PAIN/SOA. PT TOLERATES MEDS AND MEALS. PT WORKED WELL WITH PT/OT. POSSIBLE PLAN FOR DISCHARGE TODAY. PT PROGRESSINH TOWARDS POC.
--- NOTE | 2020-07-16 12:43 | NUR ---
team conferene: pt admitted to rehab w/dx general weakness. pt is keeping up endurance, gait 80 ft, w/min assist. mild to mod cog deficit and mod memory deficit, pt not remembering to call for pills. cardio consult. snf is being arranged. dc plan: snf
[2020-07-16] MEDS ORDERED: TORSEMIDE10 MG PO (13:15)
--- NOTE | 2020-07-16 13:20 | 2DMMODE ---
[facility] [place] [address] 2 D/M-MODE ECHOCARDIOGRAM Name: EVELINE HUITRON Room #: 503-P ADM IN M.R.#: [id number] Admission: 06/28/20 Attend Phys: Josue Mejia MD Discharge: Date of : 56 Report #: [id number] THIS REPORT FOR: cc: Rey Martines,Mustapha Coombs MD [facility] ~ APPROVED REPORT Study performed: 07/16/2020 11:47:42 EXAM: Comprehensive 2D, Doppler, and color-flow Echocardiogram Patient Location: Bedside Room #: [facility] Status: routine BSA: 1.87 HR: 82 bpm BP: 111/57 mmHg Rhythm: NSR Other Information Study Quality: Adequate Indications Congestive Heart Failure Hypertension/HDD Aortic Valve AoV Peak Marcus.: 1.33 m/s AO Peak Gr.: 7.02 mmHg LVOT Max P.04 mmHg LVOT Max V: 1.23 m/s Mitral Valve E/A Ratio: 1.0 MV Decel. Time: 198.67 ms MV E Max Marcus.: 0.70 m/s MV A Marcus.: 0.68 m/s MV PHT: 57.62 ms IVRT: 83.04 ms Pulmonary Valve PV Peak Marcus.: 1.16 m/s PV Peak Gr.: 5.41 mmHg Pulmonary Vein P Vein S: 0.48 m/s P Vein A: 0.26 m/s [facility] [address] [place] [address] 2 D/M-MODE ECHOCARDIOGRAM Name: EVELINE HUITRON Room #: 503-P [facility] IN M.R.#: [id number] Admission: 06/28/20 Attend Phys: Josue Mejia, Discharge: Date of : 56 Report #: [id number] P Vein D: 0.37 m/s P Vein A Dur.: 73.8 msec P Vein S/D Ratio: 1.30 Left Ventricle The left ventricle is normal size. There is normal LV segmental wall motion. There is normal left ventricular wall thickness. Left ventricular systolic function is normal. The left ventricular ejection fraction is within the normal range. LVEF is >55%. The left ventricular diastolic function is normal. Right Ventricle The right ventricle is normal size. The right ventricular systolic function is normal. Atria The left atrium size is normal. The right atrium size is normal. Aortic Valve The aortic valve is normal in structure. No aortic regurgitation is present. There is no aortic valvular stenosis. Mitral Valve The mitral valve is normal in structure. There is no mitral valve regurgitation noted. No evidence of mitral valve stenosis. Tricuspid Valve The tricuspid valve is normal in structure. There is no tricuspid valve regurgitation noted. Pulmonic Valve The pulmonary valve is normal in structure. There is no pulmonic valvular regurgitation. Great Vessels The aortic root is normal in size. IVC is normal in size and collapses >50% with inspiration. Pericardium There is no pericardial effusion. <Conclusion> Normal left ventricle size/wall thickness EF 60% Grade 1 diastolic dysfunction Normal right ventricle size/function [facility] [address] [place] [address] 2 D/M-MODE ECHOCARDIOGRAM Name: ELANAEVELINE Room #: 503-P [facility] IN ..#: [id number] Admission: 06/28/20 Attend Phys: Josue Mejia, Discharge: Date of : 56 Report #: [id number] Color-flow Doppler study was performed the aortic/mitral/tricuspid/pulmonary valve Normal aortic/mitral valve structure and function No evidence of tricuspid valve insufficiency No pericardial effusion <ELECTRONICALLY SIGNED> By: Mustapha Buchanan MD, FACC 07/16/20 1320 19 19 Mustapha Buchanan MD, FACC /INF
--- NOTE | 2020-07-16 13:34 | NUR ---
FAXED REFERRAL TO [facility] SPOKE WITH DANIAL IN ADM THEY ARE OON WITH PT'S INSURANCE, FAXED REFERRAL TO [facility] OF OP RECEIVED CONFIRMATION AND LEFT MSG WITH RIGO IN ADM.
[2020-07-16 20:00] VITALS: BP 105/59
--- NOTE | 2020-07-16 20:30 | NUR ---
UP TO TOILET WITH GAIT BELT, WALKER, AND STANDBY ASSIST. ANTICIPATES TRANSFER TO ANOTHER FACILITY IN THE NEXT DAY OR TWO. RIGHT UPPER ARM MIDLINE INTACT.
[2020-07-17 08:00] VITALS: BP 93/55
--- NOTE | 2020-07-17 09:02 | NUR ---
on-going assessment: CM REACHED OUT TO [facility] TO SEE IF THEY CAN ACCEPT PT. THEY STATE THEY ARE NEEDING PTS HEIGHT/WEIGHT AND INITIAL PT/OT EVALS. CM FAXED INFORMATION AND AWAITING INPUT AT THIS TIME.
[2020-07-17] MEDS ORDERED: TORSEMIDE10 MG PO (11:28)
--- NOTE | 2020-07-17 13:33 | NUR ---
ASSUMED CARE AT 0700. PT HAD A GOOD NIGHT AND SLEPT FAIRLY WELL. DENIES ANY PAIN. HAD COUPLE OF LOOSE BM EARLIER TODAY AND RECEIVED IMODIUM AFTER MEALS. PT SEEMS MORE AWAKE AND ALERT AT THE BEGINING OF SHIFT AND ATE 100% OF HER BREAKFAST AND LUNCH. PARTICIPATING IN THERAPY. PLAN FOR DISCHARGE TO [facility]ED THIS WEEK, WHEN BED AND CHOICE OF SKILLED FACILITY IS AVAIBLE. IV VANCOMYCIN GIVEN. R PORTACAT SITE WITH STERISTIPS INTACT.
--- NOTE | 2020-07-17 15:31 | NUR ---
ON-GOING ASSESSMENT: CM SPOKE AGAIN WITH OMAIRA ASCENCIO AT [facility] WHO REPORTS THEY ARE STILL AWAITING INSURANCE AUTH FROM [facility]. THEY REPORT THE RECEIVED PTS BENEFITS AND SINCE IT IS A NEW YEAR PATIENTS OOP IS 3000 SO SHE WILL BE BILLED 31/DAY FOR SNF UNTIL THAT IS MET OR COULD HAVE BEEN MET HERE AT [facility]. CM NOTIFIED PTS DAUGHTER AND PT OF THIS AND THEY STATE UNDERSTANDING. [facility] STATING THEY CAN ACCEPT PT AND JUST WAITING ON AUTH AT THIS TIME. CM UPDATED PT AND HER DAUGHTER JANIE. PT STATES SHE HAS BEEN UPDATING HER . CM AWAITING INSURANCE AUTH FOR [facility] AT THIS TIME. BEDSIDE RN NOTIFIED.
[2020-07-17 19:50] VITALS: BP 110/55
--- NOTE | 2020-07-18 01:21 | NUR ---
TURNING SELF IN BED, UP TO TOILET WITH STANDBY ASSIST, GAIT BELT, AND WALKER, STRONGER AND MORE ALERT THAN SHE WAS LAST WEEK. HOPING TO GO TO [place] TODAY.
--- NOTE | 2020-07-18 11:34 | NUR ---
CM LFT MESSAGE FOR OMAIRA FERRARI, FOR UPDATE.
--- NOTE | 2020-07-18 11:37 | NUR ---
ASSUMED CARE AT 0700. PT IS ALERT AND ORIENTATED. SLEPT WELL. DENIES ANY PAIN. PT IS MORE AWAKE AND ALERT. ATE 100% OF HER BREAKFAST TODAY. PARTICIPATING IN THERAPY.HAVING LESS FREQUENT BOWEL MOVEMENTS WITH IMODIUM. UP WITH ASSIST X 1 WITH WALKER. PLAN FOR DC TO [facility], AWAITNG APPROVAL FROM [employer] AUTH. IV VANCOMYCIN INFUSED THIS MORNING. R PORTACATH SITE INTACT WITH STERISTRIPS INTACT. NO SIGNS OF INFLAMMATION OR REDNESS.
[2020-07-18] MEDS ORDERED: VANCOMYCIN1 GM/2002 IV (15:42)
[2020-07-18 19:29] VITALS: BP 90/52
--- NOTE | 2020-07-19 00:29 | NUR ---
PATIENT SAT UP LATE TONIGHT WATCHING TV IN BED. SARITHA HOSE WERE REMOVED AND PATIENT REFUSED SCD'S. SHE TOOK HER MEDS WHOLE WITH WATER. SHE HAS A SCAB ON HER RIGHT GREAT TOE WITH REDNESS AROUND IT AND TENDER TO TOUCH. PATIENT HAS MIDLINE IN RIGHT UPPER ARM WHICH IS SALINE LOCKED. INTACT. BP IS LOW AT 90/52 TONIGHT. PATIENT DENIES PAIN. SHE HAS BEEN PLEASANT AND COOPERATIVE AND A/0X 3. BED IN LOW POSITION. PATIENT IS ASSIST X 1 WITH WALKER AND GAIT BELT FOR TRANSFERS. ROUTINE ROUNDS TO ASSESS SAFETY AND STATUS OF PATIENT. CONTINUING TO MONITOR.
[2020-07-19 08:00] VITALS: BP 90/54
--- NOTE | 2020-07-19 10:59 | NUR ---
CÉSAR reviewed chart and spoke with nursing. CÉSAR contacted Mariela at [facility] who states they are still waiting for insurance authorization from [facility]. can take up to 72 hours to make a determination. senior program planner to fax clinical/therapy updates to [facility]. Chart copy requested from . CÉSAR is following to assist as needed with discharge planning.
--- NOTE | 2020-07-19 11:50 | NUR ---
COOPERATIVE AND PLEASANT DURING AM MED PASS/ASSESSMENT. DENIES C/O PAIN/DISCOMFORT. DENIES COUGH-AFEBRILE. LUNGS C;LEAR O2 SAT 95 PERCENT ON RA-IS NOTED TO GET MILDLY SHORT OF BREATH WHEN AMBULATING FROM BR TO BED WITH PT-STATES THIS IS NORMAL FOR HER. GAIT IS SLOW AND STEADY WITH SBA X1 AND ROLLER WALKER, APPETIE FAIR. CONTINUES TO HAVE 2 PLUSE PEDAL EDEMA TO LE BILATE-SARITHA HOSE APPLIED-NO REDNESS TO YF-[id number] TO TOUCH. STATES HAD BM THIS AM AND DENIES ANY GI/ ISSUES-VOIDING CLEAR YELLOW URINE.
[2020-07-19 20:00] VITALS: BP 103/61
--- NOTE | 2020-07-20 02:48 | NUR ---
ASSUMED CARE APPROX 1900 EVENING 07/19. PT ALERT AND ORIENTED X4, APPROPRIATE AND COOPERATIVE. PT UP TO BATHROOM WITH WALKER WITH 1 ASSIST. PT TOOK HS MEDS WITH WATER TOLERATING WELL. PT APPEARS TO BE SLEEPING SOUNDLY WITH HOURLY ROUNDING. BED ALARM ON AND CALL LIGHT IN REACH. WILL CONTINUE TO MONITOR.
[2020-07-20 06:08] LABS: HEMATOCRIT 28.7 % (37.0-47.0); MCH 29.8 pg (26.0-34.0); MCHC 31.3 g/dL (28.0-37.0); MCV 95.2 fL (80.0-100.0); RBC 3.02 mil/uL (4.20-5.00); RDW 17.6 % (10.5-14.5)
[2020-07-20 07:15] VITALS: BP 94/52
--- NOTE | 2020-07-20 10:20 | NUR ---
ASSUMED CARE AT 0700. PT IS ALERT AND ORIENTATED. PT SLEPT WELL. DENIES ANY PAIN. APPETITE HAS BEEN IMPROVING. BOWEL FREQ IS MANAGEABLE WITH IMODIUM. STILL AWAITING FOR TO AUTO DISCHARGE TO [facility]. PT IS OFF IV VANCOMYCIN. TOLERATES ALL PILLS ORALLY WITHOUT ANY DIFFICULTY. BLE EDEMA, SARITHA HOSE APPLIED. PT IS ON DIURETICS. CONT TO MONITOR.
[2020-07-20 19:10] VITALS: BP 92/52
--- NOTE | 2020-07-21 02:56 | NUR ---
pt alert and oriented x4, pleasant and cooperative. pt denied complaints. pt up to bathroom with walker to void. pt took hs meds with water tolerating well. pt appears to be sleeping soundly with hourly rounding checks. bed alarm on and call light in reach. will continue to monitor.
[2020-07-21 07:54] VITALS: BP 99/50
--- NOTE | 2020-07-21 12:45 | NUR ---
PT ALERT AND ORIENTED TIMES FOUR. VSS. PT DENIES PAIN/SOA. PT TOLERATES MEDS AND MEALS. PT WALKS TO RESTROOM WITH WALKER STAND BY ASSIST. PT PROGRESSING TOWARDS GOALS.
[2020-07-21 19:44] VITALS: BP 100/59
--- NOTE | 2020-07-21 22:57 | NUR ---
PT ASSESSMENT COMPLETED AND VSS. MEDS GIVEN ORDERED AND WELL TOLERATED. FALL PRECAUTIONS IN PLACE. PT UP TO THE BATHROOM WITH ASST/GAIT/WALKER. INC OF URINE AT TIMES. PT WAS INC IN BRIEF AND WAS ABLE TO CHANGE HER BRIEF WHILE SITTING ON THE TOILET. SHE WAS ABLE TO PULL UP HER OWN BRIEF. SLEEPING WELL AT THIS TIME. DENIES NEEDS. WILL CONTINUE TO MONITOR FREQUENTLY.
[2020-07-22 07:00] VITALS: BP 76/39
--- NOTE | 2020-07-22 10:43 | NUR ---
CÉSAR reviewed chart and spoke with nursing. Pt is medically stable for discharge to [facility] pending insurance authorization. CÉSAR discussed with [facility] liaison. mechanical planner to fax updates to [facility]. CÉSAR placed call to pt's room. No answer. CÉSAR spoke with pt's dtr, Cristel, via phone to provide update. Pt's dtr is aware and agreeable with discharge plan. CÉSAR received call from 5N unit mgr stating Cori from [facility] called and provided authorization # [id number] for SNF. CÉSAR provided auth number and contact info for Cori ([phone]) to [facility] santoyoison to confirm. CÉSAR is following to finalize discharge plan.
--- NOTE | 2020-07-22 10:46 | NUR ---
DISCHARGE PLANNING: CALL RECEIVED FROM [place] AT [facility]. PATIENT IS APPROVED FOR ADMIT TO [facility]ED [facility]ARE AT [facility] AND THE AUTH # IS [id number]. NOTIFIED CÉSAR DURÁN, BY PHONE OF THIS, INCLUDING THE AUTH #. WILL UPDATE PT'S RN WELL.
--- NOTE | 2020-07-22 11:23 | NUR ---
ASSUMED CARE AT 0700. PATIENT IS ALERT AND ORIENTED X4. PATIENT MOVES ALL EXTREMITIES. MEN'S GOLF COACH ARE EQUAL. LUNGS ARE CLEAR AND DEMINISHED. ABD IS SOFT WITH BSX4. UP TO THE BATHROOM TO VOID ZULEMA COLORED URINE AND HAVE BM. PATIENT CONTINUES ON IMMODIUM. PATIENT HAS 2+ EDEMA IN HIS LOWER EXTREMITIES. FALL AND SAFETY PROTOCOLS IN PLACE. DENIES PAIN AT THIS TIME. UP IN THE CHAIR FOR MEALS. CONTINUES TO PROGRESS TOWARDS D/C GOALS. PATIENT MAY BE D/C'D LATER TODAY IF [facility] STILL HAS FEMALE BED. WILL CONTINUE TO MONITER.
[2020-07-22] MEDS ORDERED: MIDODRINE HCL 55 M1 PO (13:41)
--- NOTE | 2020-07-22 15:03 | NUR ---
FAXED CLINICAL UPDATE TO [facility] SPOKE WITH JACEY IN ADM SHE RECEIVED UPDATE WITH TODAY'S PROGRESS NOTES FROM DR GALLAGHER REGARDING CHEMO. COVID RESULT STILL PENDIND. DP TO FOLLOW.
[2020-07-22 19:27] VITALS: BP 97/56
--- NOTE | 2020-07-22 22:14 | NUR ---
ASSUMED CARE OF PT AT 1915. PT IS A&OX4. IS ON ROOM AIR. IS STABLE. DENIES PAIN. HAS EDEMA IN BILAT UPPER & LOWER EXTREMETIES. BRUISING TO LEFT ARM NOTED. IS ABLE TO TURN SELF. IS CONTINENT, BUT CAN BE INCONTINENT AT TIMES. IS UP WITH 1 ASSIST, GB, WALKER. FALL PRECAUTIONS & HOURLY ROUNDING CONTINUED THIS SHIFT. LABS & VITALS REVIEWED. WILL CONTINUE TO MONITOR.
[2020-07-23 07:15] VITALS: BP 93/52
--- NOTE | 2020-07-23 08:37 | NUR ---
per mumtaz, 5n rn, pt covid result is negative. jennifer, d/c material planner, to send results to [facility]. cristina finn w/mohit, w/[facility], who has confirmed transportation has been arranged for 11am. 4s us to make chart copy. cm notified pt, pt's spouse, dtr, and rn of this info, all are agreeable to plan.
--- NOTE | 2020-07-23 09:18 | NUR ---
PT IN ROOM THIS AM. SHE DENIES ANY PAIN AT THIS TIME. PT TOOK MEDS WHOLE WITHOUT ANY ISSUES. PT HAS SCHEDUALED IMMODIUM FOR LOOSE STOOLS. PT LUNGS CLEAR. PT HAS EDEMA TO EXTRIMETIES BILATERALLY. MIDLINE TO RT UPPER ARM. [facility]. NO ISSUES WITH GI THIS AM.
--- NOTE | 2020-07-23 10:06 | NUR ---
FAXED DC ORDERS/SUMMARY TO [facility] SPOKE WITH OMAIRA IN ADM SHE RECEIVED DC ORDERS AND COVID RESULT. TRANSPORT ARRANGED VAN FOR 1100 TODAY.
--- NOTE | 2020-07-23 10:30 | NUR ---
MIDLINE D/C TO RT UPPER ARM. PT HAS SOME WEEPING TO RT FORARM. PLACED A BORDERED DRESSING OVER AREA WEEPING.
--- NOTE | 2020-07-23 10:44 | NUR ---
GAVE REPORT TO TIFFANIE WILEY AT [facility].
--- NOTE | 2020-07-23 11:11 | NUR ---
PT TRANSPORTATION HERE. PT LEFT VIA W/C WITH PERSONAL BELONGINGS, TABLET AND PHONE AND CHARGERS. PT MIDLINE DRESSING IS DRY AND INTACT.
--- NOTE | 2020-07-24 15:24 | H ---
[facility] [place] [address] [address] [place] [address] HISTORY AND PHYSICAL Name: EVELINE HUITRON Room #: 503-P [facility] IN M.R.#: [id number] Admission: 06/28/20 Attend Phys: Josue Mejia MD Discharge: 07/23/20 Date of : 56 Report #: [id number] THIS REPORT FOR: cc: Rey Martines,Rey Munguia,Josue Rivera MD ~ DATE OF SERVICE: 06/28/2020 HISTORY AND PHYSICAL/POST ADMISSION PHYSICAL EVALUATION HISTORY OF PRESENT ILLNESS: The patient is a 60-year-old white female who was originally admitted with diarrhea and weakness. The patient has a history of colon cancer, on chemotherapy with a Port-A-Cath in place. She has undergone resection. She has thrombocytopenia and anemia. She was admitted with weakness and worsening of diarrhea with 8 bouts of diarrhea per day. She was so weak, was unable to get up off the toilet. She was given IV fluids, loperamide increased, leukocytosis monitored and magnesium replaced. Phosphorus was replaced. Oncology has been involved and they are considering dose reduction and no additional chemotherapy and she may be intolerant. Gastroenterology has also been involved. Recommendations are to monitor hemoglobin and transfuse to keep hemoglobin greater than 7. She also has been treated for urinary tract infection, on antibiotics. History of gastroesophageal reflux disease. The patient has considerable weakness and debilitation with above medical complexity and has now been admitted for acute in-hospital inpatient rehabilitation. PAST MEDICAL HISTORY: Gastric bypass, right great toe, second toe surgery, colon resection for colon cancer, controlled GERD, cholecystectomy, history of vertigo, anemia, hypertension, and depression. MEDICATIONS: Please see the full medication listing. ALLERGIES: No known drug allergies. SOCIAL HISTORY: Lives in a house with spouse, 5 stairs in. Used a walker prior to admission. MEDICATIONS: Please see the full medication listing. ALLERGIES: No known drug allergies. REVIEW OF SYSTEMS: No current complaints of chest pain, shortness of breath or abdominal discomfort. [facility] [address] [place] [address] HISTORY AND PHYSICAL Name: PARTH HUITRONINE Room #: [address] [place] [address] IN M.R.#: [id number] Admission: 06/28/20 Attend Phys: Josue Mejia MD Discharge: 07/23/20 Date of : 56 Report #: [id number] PHYSICAL EXAMINATION: GENERAL: Pleasant, overweight 60-year-old white female in no obvious distress. VITAL SIGNS: Last recorded temperature 97.7, pulse 85, respirations 18, and blood pressure 110/48. NEUROLOGIC: The patient is alert. She was seen yesterday on 06/28/2020 later. Facies are symmetric. HEENT: Appeared to be benign. CHEST: Sounded clear to auscultation. CARDIAC: Regular rate and rhythm. She does have the port in place. ABDOMEN: Bowel sounds positive, nontender. GENITOURINARY AND RECTAL: Deferred. EXTREMITIES: Functional range of motion of both upper extremities. Strength is grade 4-/5. In the lower extremities, there is no focal calf swelling. Functional range of motion, strength is a grade 3+/5. She is min assist sit to stand and has been min assist to take a few steps with a front-wheeled walker. She is alert, follows basic 1 step commands, some slowness in her response is noted. ASSESSMENT: A 60-year-old white female with the following problem list: 1. Medical complexity with generalized debilitation. 2. Colon cancer, status post right hemicolectomy on 03/11/2020, on chemotherapy. 3. Persistent diarrhea, which has improved. 4. Moderate to severe malnutrition with replacement of hypomagnesemia and low phosphorus. 5. Stage 3 colon cancer. 6. Normocytic anemia. 7. Gastroesophageal reflux disease. 8. Urinary tract infection, on antibiotics. 9. Cognitive concerns. She has some slowness to her responses. There is concern regarding a possible concomitant multifactorial encephalopathy. We will be having speech therapy and neuropsychology evaluate. PLAN: As above. The patient has been admitted for acute in-hospital inpatient rehabilitation. Please see the patient's previous and current functional status. As far as risk of complication, she does have the multiple medical comorbidities as noted above. Initial plan of care involves the interdisciplinary acute inpatient rehabilitation program. Measurable functional goals would be for the patient to become modified independent with transfers, mobility and ADLs and to improve as far as cognition, so that she can return back to the home setting. Prognosis is reasonably good with estimated length of stay probably at least 10 days. We will need to see how she progresses. Potential barriers would include her multiple medical comorbidities and decreased functional status. [address] [address] HISTORY AND PHYSICAL Name: PARTH HUITRONINE Room #: 503-P [facility] IN M.R.#: [id number] Admission: 06/28/20 Attend Phys: Josue Mejia MD Discharge: 07/23/20 Date of : 56 Report #: [id number] The patient meets diagnostic criteria for an acute in-hospital inpatient rehabilitation stay. She meets the medical necessity criteria. She does have the tolerance for therapies and has appropriate discharge goals back to the home setting. <ELECTRONICALLY SIGNED> By: Josue Mejia MD 07/24/20 1524 0949 [id number] Josue Mejia MD /nt
--- NOTE | 2020-07-24 15:25 | PLAN ---
[facility] [place] [address] [address] [place] [address] REHAB UNIT PLAN OF CARE Name: EVELINE HUITRON Room #: 503-P [facility] IN M.R.#: [id number] Admission: 06/28/20 Attend Phys: Josue Mejia MD Discharge: 07/23/20 Date of : 56 Report #: [id number] THIS REPORT FOR: cc: Rey Martines Steven F. DO Smithson,Josue Rivera MD ~ DATE OF SERVICE: 07/01/2020 PROGRESS NOTE/OVERALL PLAN CARE SUBJECTIVE: The patient is seen back today in followup. She is in no distress. Temperature 98.2, pulse 81, respirations 18, blood pressure is 87/51. She is pleasant. No calf swelling. He is working in therapies with sit to stand, min assist. Gait min assist 2 feet with a front-wheeled walker. In occupational therapy, lower body dressing is max assist, upper body dressing is min assist. Speech therapy, she has functional verbal expression skills. Mild cognitive deficits and memory deficits. ASSESSMENT: A 60-year-old white female with the following problems: 1. Mild multifactorial encephalopathy, which appears to be improving. 2. Medical complexity with generalized debilitation. 3. Colon cancer, status post right hemicolectomy on 03/11/2020. 4. Persistent diarrhea has improved. 5. Malnutrition with replacement of hypomagnesemia and low phosphorus. 6. Stage 3 colon cancer. 7. Normocytic anemia. 8. Gastroesophageal reflux disease. 9. Urinary tract infection. PLAN: The overall plan of care is based on the preadmission screen, post-admission physician evaluation and information garnered from therapy assessments. 1. Estimated length of stay is probably at least 7-10 days. 2. Medical prognosis is reasonably good. 3. Anticipated interventions includes the interdisciplinary acute inpatient rehabilitation program. 4. Anticipated functional outcomes would be for the patient to become modified independent with transfers, mobility and ADLs and to improve as far as cognition, so that she can return back to the home setting. 5. Discharge destination would be back to the house with her spouse 5 stairs in. 6. Expected therapy by discipline includes PT, OT and speech 1 hour per day each five days a week throughout the duration of the acute inpatient rehabilitation stay. [address] [address] REHAB UNIT PLAN OF CARE Name: EVELINE HUITRON Room #: 503-P [facility] IN M.R.#: [id number] Admission: 06/28/20 Attend Phys: Josue Mejia MD Discharge: 07/23/20 Date of : 56 Report #: [id number] The patient's prognosis for significant practical improvement within a reasonable period of time appears good. Given the patient's complex medical condition and risk of further medical complications, rehabilitation services could not be safely provided at a lower level of care such as a fci facility. <ELECTRONICALLY SIGNED> By: Josue Mejia MD 07/24/20 1525 0928 Josue Mejia MD /leslie
== END 2020-07-23 11:18 | DRG 91 ==
PROVIDERS: Internal Medicine; Nurse Practitioner; Nurse Practitioner Family; ADMIT Physical Medicine & Rehabilitation; ATTEND Physical Medicine & Rehabilitation
PROC: 30233N1 Transfusion of Nonautologous Red Blood Cells into Peripheral Vein, Percutaneous Approach (ICD-10-PCS; principal; 2020-07-09)
PROC: 0JPT0WZ Removal of Totally Implantable Vascular Access Device from Trunk Subcutaneous Tissue and Fascia, Open Approach (ICD-10-PCS; 2020-07-12)
PROC: 05HB33Z Insertion of Infusion Device into Right Basilic Vein, Percutaneous Approach (ICD-10-PCS; 2020-07-13)
DX: G92 Toxic encephalopathy (principal); E43 Unspecified severe protein-calorie malnutrition; A41.2 Sepsis due to unspecified staphylococcus; T80.211A Bloodstream infection due to central venous catheter, initial encounter; N39.0 Urinary tract infection, site not specified; C18.9 Malignant neoplasm of colon, unspecified; D62 Acute posthemorrhagic anemia; N17.9 Acute kidney failure, unspecified; I38 Endocarditis, valve unspecified; D61.818 Other pancytopenia; R53.81 Other malaise; Z20.822 Contact with and (suspected) exposure to COVID-19; E83.42 Hypomagnesemia; E83.39 Other disorders of phosphorus metabolism; K21.9 Gastro-esophageal reflux disease without esophagitis; F32.9 Major depressive disorder, single episode, unspecified; G31.84 Mild cognitive impairment of uncertain or unknown etiology; E87.6 Hypokalemia; I95.9 Hypotension, unspecified; K52.9 Noninfective gastroenteritis and colitis, unspecified; N18.9 Chronic kidney disease, unspecified; I12.9 Hypertensive chronic kidney disease with stage 1 through stage 4 chronic kidney disease, or unspecified chronic kidney disease; Y84.8 Other medical procedures as the cause of abnormal reaction of the patient, or of later complication, without mention of misadventure at the time of the procedure; I87.2 Venous insufficiency (chronic) (peripheral); E03.9 Hypothyroidism, unspecified; Z90.49 Acquired absence of other specified parts of digestive tract; Z79.899 Other long term (current) drug therapy; Z98.84 Bariatric surgery status; Z68.33 Body mass index [BMI] 33.0-33.9, adult; Y92.89 Other specified places as the place of occurrence of the external cause; Z87.891 Personal history of nicotine dependence; Z82.49 Family history of ischemic heart disease and other diseases of the circulatory system
CPT/HCPCS: 10112; 27000

== ENCOUNTER 2020-09-04 11:04 | Inpatient (IN) | payer OTHER ==
[~2020-09-04] VITALS: Ht 160 cm; Wt 95.0 kg
[~2020-09-04 11:04] MED LIST changes: +MIDODRINE HCL 55 M1 PO; +TORSEMIDE10 MG PO; +VANCOMYCIN1 GM/2002 IV; +VITAMIN C1000 MG PO; +VITAMIN D325 MC1 PO; +ZINC SULFATE 2220 MG PO
[2020-09-04 11:10] VITALS: BP 92/53
[2020-09-04 11:43] LABS: HEMATOCRIT 30.8 % (37.0-47.0); MCH 30.6 pg (26.0-34.0); MCHC 32.4 g/dL (28.0-37.0); MCV 94.7 fL (80.0-100.0); PLATELET COUNT 139 thou/uL (150-400); RBC 3.26 mil/uL (4.20-5.00); WBC 9.8 thou/uL (4.0-11.0)
[2020-09-04 12:24] LABS: CALCIUM 7.8 mg/dL (8.5-10.1); CREATININE 2.3 mg/dL (0.6-1.0); POTASSIUM 3.2 mmol/L (3.5-5.1)
[2020-09-04 12:31] LABS: ALBUMIN 2.4 g/dL (3.4-5.0); TOTAL BILIRUBIN 0.9 mg/dL (0.2-1.0); TOTAL PROTEIN 5.8 g/dL (6.4-8.2)
[2020-09-04 12:42] LABS: ABSOLUTE NEUTROPHILS 7.8 thou/uL (1.4-8.2); PLATELET ESTIMATE NORMAL
[2020-09-04 13:35] LABS: URINE BILIRUBIN NEGATIVE (Negative); URINE BLOOD NEGATIVE (Negative); URINE CLARITY CLEAR; URINE COLOR YELLOW; URINE GLUCOSE-RANDOM* NEGATIVE (Negative); URINE KETONES NEGATIVE (Negative); URINE LEUKOCYTES-REFLEX TRACE (Negative); URINE NITRITE-REFLEX NEGATIVE (Negative); URINE PROTEIN (DIPSTICK) NEGATIVE (Negative); URINE SPECIFIC GRAVITY 1.015 (1.005-1.035); URINE UROBILINOGEN 0.2 E.U./dl (0.2-1.0)
[2020-09-05 05:32] LABS: ALBUMIN 2.4 g/dL (3.4-5.0); CALCIUM 7.3 mg/dL (8.5-10.1); CREATININE 1.8 mg/dL (0.6-1.0); PHOSPHORUS 3.3 mg/dL (2.6-4.7)
[2020-09-05 05:37] LABS: POTASSIUM 2.6 mmol/L (3.5-5.1)
[2020-09-05 10:57] VITALS: BP 82/42
[2020-09-05 12:43] VITALS: BP 107/50
[2020-09-05 13:16] VITALS: BP 102/60
[2020-09-05 13:40] VITALS: BP 115/55
--- NOTE | 2020-09-05 15:16 | NUR ---
PT ARRIVED TO UNIT APPROX 1330 PT ALERT ORIENTED VSS LASIX GTT INFUSING, [place] CATH DIURESING APPROPRIATEY. ADMISSION COMPLETE. TELE STRIP PRINTED. PT CURRENTLY RESTING IN BED. DENIES NEEDS/PAIN. CONTINUING TO MONITOR.
[2020-09-05 15:50] VITALS: BP 98/47
--- NOTE | 2020-09-05 17:00 | NUR ---
CONSULTED TO PLACE A PIV. UNABLE TO CANNULATE VEIN FOR A PIV- VESSELS ARE DEEP AND FRAGILE. DISCUSSED MIDLINE ACCESS, SHE ALSO HAD A MIDLINE WHEN SHE WAS HERE PRIOR DUE TO THE SAME ISSUE OF OBTAINING IV ACCESS. A #4F POWER INJECTABLE MIDLINE WAS PLACED PER HOSPITAL POLICY. THE LEFT BASILIC WAS WIDLEY PATENT. THE LINE WAS TRIMMED TO 15CM AND ADVANCED WITHOUT DIFFICULTY. LINE SECURED AND RELEASED FOR USE
[2020-09-05 19:56] VITALS: BP 88/46
[2020-09-06] VITALS (7 sets, daily range): BP systolic 80–97; BP diastolic 46–53
[2020-09-06 04:04] LABS: ALBUMIN 2.1 g/dL (3.4-5.0); CALCIUM 7.3 mg/dL (8.5-10.1); CREATININE 1.5 mg/dL (0.6-1.0); PHOSPHORUS 2.5 mg/dL (2.6-4.7)
--- NOTE | 2020-09-06 06:59 | HC ---
[facility] [place] [address] [address] [place] [address] CONSULTATION Name: EVELINE HUITRON Room #: 219-P ADM IN M.R.#: [id number] Admission: 09/04/20 Attend Phys: Ministerio Chavez Discharge: Date of : 56 Report #: [id number] THIS REPORT FOR: cc: Rey Martines,Qasim Pedroza MD ~ DATE OF SERVICE: 09/05/2020 REQUESTING PHYSICIAN: Dr. Chavez. REASON FOR CONSULTATION: History of colon cancer and admission. HISTORY OF PRESENT ILLNESS: The patient is a 60-year-old female who I had followed with a history of colon cancer with resection in 02/2020. At that time, it was stage 3 node positive. Unfortunately, the patient was intolerant to chemotherapy. She has been in and out of the hospital several times and unfortunately was readmitted this time and was found to have a left leg DVT and also possible cellulitis. The patient denies recent known fevers or chills, though she has felt warm, has had leg swelling in both legs, not helped with diuretic, which is why they did an ultrasound today. Also, has increased redness more in the left foot than on the right. This is on the calf also. Her diarrhea which she had earlier has been much improved. She has had fatigue. She has been working with rehabilitation type services I believe at home. She had been at a facility, but had gone home about a week or two ago. She tells me that her family members have been healthy. PAST MEDICAL HISTORY: Notable for the stage 3 node positive colon cancer resected in 02/2020. Intolerant to chemotherapy, now on observation. Noted that she had her final right hemicolectomy on 03/13/2020. Tumor size was 9.5 cm, grade 2, perineural invasion was not seen. The patient also has a history of arthritis and back pain, hypertension, hypothyroidism, cholecystectomy. Last menstrual cycle in 2011. She had been on raloxifene in the past for osteoporosis. FAMILY HISTORY: Noncontributory. SOCIAL HISTORY: Former smoker. Alcohol rare. No street drugs. CURRENT MEDICATIONS: Described by the patient include vancomycin, Lovenox 100 mg b.i.d., potassium chloride 20 mEq daily, levothyroxine 200 mcg daily, famotidine 10 b.i.d.; midodrine 10 mg, I believe at 6 o'clock, 12 o'clock and 1800 hours; IV furosemide, Tylenol p.r.n., zolpidem p.r.n., MiraLax p.r.n., nitroglycerin p.r.n., Zofran p.r.n. [address] [address] CONSULTATION Name: EVELINE HUITRON Room #: 219-P [facility] IN M.R.#: [id number] Admission: 09/04/20 Attend Phys: Ministerio Chavez Discharge: Date of : 56 Report #: [id number] PHYSICAL EXAMINATION: GENERAL: The patient is examined at about 8:30 in the morning. This dictation is occurring at a later date. At that time, she was in the Emergency Room, in observation room when you go upstairs. VITAL SIGNS: Height is 5 feet 3 inches, 160 cm. Weight is 210 pounds or 95.26 kilograms. Blood pressure this morning, I believe was around 86/37, O2 sat 96%, respirations 16, pulse 86, afebrile. HEENT: Oropharynx clear. NEUROLOGIC: Speech and thought pattern and movement of upper extremities normal. HEART: Regular rate. LUNGS: Clear. LYMPHATICS: No enlarged axillary, inguinal, or cervical lymph nodes. ABDOMEN: Obese, nontender. No masses. EXTREMITIES: Do have equal swelling with maybe slightly more on the left than on the right with also some redness on the lower calf and upper foot. RADIOLOGIC STUDIES: Today include the ultrasound of the lower extremities showing the occlusive thrombus in the left thigh extending into the calf veins. Right leg was clear of clot. LABORATORY DATA: Today includes a creatinine of 1.8, down from 2.3 yesterday. Liver functions normal, alkaline phosphatase was slightly elevated at 206. White count 9.8, hemoglobin 10, up from 9 about a month and a half ago. Platelet count 139, up from 129 a month ago. Differential mostly normal. Hypercoag panel pending. TSH was 11.119. UA unremarkable. ASSESSMENT AND PLAN: 1. History of stage 3 node positive colon cancer, intolerant of adjuvant therapy, now on observation/surveillance; no known recurrent disease. 2. History of new left-sided extensive DVT and thigh and calf. Agree with Lovenox and possible conversion to oral anticoagulant at a future date. 3. Weakness. Had been at [place], will probably need rehab services. 4. Anemia. Hemoglobin 10.9 that was higher than it was 6 weeks ago. 5. Hypothyroid. Note, the patient is on levothyroxine. 6. Bilateral leg edema. We will defer balance of renal insufficiency and edema to others. We will follow with you. <ELECTRONICALLY SIGNED> By: Qasim Bustillos MD 09/06/20 0659 1820 1915 Qasim Bustillos MD /leslie
--- NOTE | 2020-09-06 07:28 | NUR ---
DEFER OT EVAL PENDING PT. REACHING THERAPEUTIC RANGE FOR ANTICOAGULATION FOLLOWING DIAGNOSIS OF DVT. WILL CHECK BACK IN PM.
--- NOTE | 2020-09-06 07:59 | NUR ---
SLEPT MOST OF SHIFT. 2100CC OUT OF [place]. MAINTAIN LASIX GTT. WORKING ON GOALS AND PLAN OF CARE FOR NOC. PROGRESSING SLOWLY. CONTINUE TO ASSES.
--- NOTE | 2020-09-06 12:22 | NUR ---
PT. HAS IR CONSULT FOR POSSIBLE THROMBECTOMY, WILL WAIT FOR CONSULT NOTE TO INITIATE OT EVALUATION. CHECK BACK TOMORROW.
--- NOTE | 2020-09-06 15:18 | NUR ---
Nutrition: RECommend liberalize diet to 2 gm Na+, renal diet not indicated. REC also restart pt's Megace.
--- NOTE | 2020-09-06 17:59 | NUR ---
ASSUMMED PT CARE AT APPROXIMATELY 0700. PT A&O X4. ASSESSMENT CHARTED. FALL PRECAUTIONS IN PLACE. PT DENIES HAVING CHEST PAIN. PT DENIES HAVING SOB. PT DENIES HAVING ACUTE PAIN. EDUCATED PT'S FAMILY AND PT ABOUT POC. PT AND PT'S FAMILY STATED UNDERSTANDING AND DENIED HAVING FURTHER QUESTIONS. VITAL SIGNS STABLE. PT COMFORTABLE IN BED. PT DENIES HAVING FURTHER CONCERNS.
--- NOTE | 2020-09-06 18:23 | NUR ---
Case opened to follow for resumption of [facility] services at [facility]. Pt is currently on service with [facility] since her dc from SNF at [facility] a month ago. She is known to cm from several recent admissions in Jun and Jul. She was on 5N in Jun 2020. She lives with her spouse in a split level home with 5 steps in and 5 up to her bedroom and bathroom. Her dtr Cristel lives close by and is involved and supportive. She has a rwalker and bsc at home. She is being treated for DVT and on a lasix gtt. Possible lt calf thrombectomy per IR. No weekend dc anticipated. Attempted to speak with the pt via phone with no answer. DC technical planner to update [facility] with anticipation of resumption of care at [facility]. Onc consulted and following with recommendations to not restart her chemo for colon ca and f/u with quarterly labs and imaging. PT/OT evals pending. Will follow.
[2020-09-07 05:19] VITALS: BP 88/47
--- NOTE | 2020-09-07 07:48 | NUR ---
WHILE ATTEMPTING TO REMOVE AN INFILTRATED IF IN PATIENTS RIGHT ARM, NURSE CREATED A SKIN TEAR. DRESSING PROVIDED WITH CONSULT PLACED FOR WOUND CARE NURSE.
[2020-09-07 08:25] VITALS: BP 91/60
[2020-09-07 09:24] LABS: CALCIUM 7.2 mg/dL (8.5-10.1); CREATININE 1.6 mg/dL (0.6-1.0)
[2020-09-07 09:53] LABS: POTASSIUM 3.2 mmol/L (3.5-5.1)
[2020-09-07 11:55] VITALS: BP 102/47
--- NOTE | 2020-09-07 13:08 | NUR ---
FAXED TODAYS PROGRESS NOTES BUT NO THERAPY NOTES TO SEND. [facility] P [phone]; FAX [phone]
[2020-09-07 17:20] VITALS: BP 91/46
--- NOTE | 2020-09-07 18:29 | NUR ---
ASSUMED CARE SHIFT CHANGE.ASSESSMENT CHARTED.MEDS GIVEN PER SEP. VSS BP STABLE. LASIX GTT DC'D PO LASIX STARTED PER ORDERS. LEGS REMAIN EDEMATOUS AND WEEPING. PT UP WITH PHYS THERAPY AND OT TOLERATING WELL. PT VOMITED X1 ZOFRAN GIVEN WITH RELIEF OBTAINED. PT DIURESING APPRORPRIATELY. PLAN FOR HOME WITH HH ONCE MEDICALLY STABLE. PT CURRENTLY LAYING IN BED DENIES CONCERNS. CONTINUING WITH POC. WILL PASS ON REPORT TO ADORE WILEY.
[2020-09-07 19:18] VITALS: BP 92/49
[2020-09-08 04:42] VITALS: BP 88/46
[2020-09-08 07:20] LABS: ALBUMIN 1.9 g/dL (3.4-5.0); CREATININE 1.6 mg/dL (0.6-1.0); PHOSPHORUS 2.3 mg/dL (2.5-4.9); POTASSIUM 3.6 mmol/L (3.5-5.1)
[2020-09-08 08:45] VITALS: BP 84/46
[2020-09-08 12:00] VITALS: BP 95/53
--- NOTE | 2020-09-08 15:47 | NUR ---
ASSESSMENT CHARTED. PT ALERT AND ORIENTED. VSS. REPORT FEELING MUCH BETTER TOADY. WOUND CARE PROVIDED. NO CONCERNS AT THIS TIME. PROGRESSING WELL TOWARDS DISCHARGE GOAL.
[2020-09-08 16:15] VITALS: BP 104/43
[2020-09-08 20:34] VITALS: BP 91/45
--- NOTE | 2020-09-09 00:12 | NUR ---
assumed care at change of shift, assessments as charted, alet and oriented, makes needs known, vss, bp on the soft side, denies having concerns, meds given as per mnar, progressing towards poc
[2020-09-09 00:39] VITALS: BP 80/40
--- NOTE | 2020-09-09 00:53 | NUR ---
PT TRANSFERRED FROM . BP 80/40. PROVIDER NOTIFIED. LUNGS WITH WHEEZES. ANASARCA UPON ADMISSION, BLE LYMPHEDEMA. PT CALLS FOR ASSISTANCE WITH AMBULATION. PT USES WALKER TO BR, STEADY GAIT.
[2020-09-09 04:02] LABS: BASOPHILS 0.4 % (0.0-2.0); EOSINOPHILS 1.1 % (0.0-3.0); HEMATOCRIT 25.5 % (37.0-47.0); HEMOGLOBIN 8.3 gm/dL (12.0-15.0); MCH 31.2 pg (26.0-34.0); MCHC 32.5 g/dL (28.0-37.0); MCV 96.2 fL (80.0-100.0); MONOCYTES 4.3 % (1.0-8.0); PLATELET COUNT 153 thou/uL (150-400); POLYS 78.2 % (36.0-66.0); RBC 2.65 mil/uL (4.20-5.00); RDW 16.4 % (10.5-14.5); WBC 7.7 thou/uL (4.0-11.0)
[2020-09-09 04:12] LABS: CALCIUM 7.3 mg/dL (8.5-10.1); CREATININE 1.8 mg/dL (0.6-1.0); POTASSIUM 3.6 mmol/L (3.5-5.1)
[2020-09-09 06:38] VITALS: BP 90/40
[2020-09-09 07:15] VITALS: BP 76/44
[2020-09-09 07:52] VITALS: BP 83/51
[2020-09-09] MEDS ORDERED: KEFLEX500 M1 PO (09:00)
[2020-09-09] MEDS ORDERED: ELIQUIS5 MG PO (09:01)
--- NOTE | 2020-09-09 09:13 | NUR ---
PT ALERT AND ORIENTED TIMES FOUR. BP LOW DR AWARE, OTHER VSS. PT DENIES AND PAIN/SOA. PT TOLERATES MEDS AND MEALS. PLANS FOR DISCHARGE TODAY. PT PROGRESSING TOWRADS POC GOALS.
[2020-09-09 09:16] VITALS: BP 80/47
--- NOTE | 2020-09-09 11:18 | NUR ---
KAITLIN/LIAISON FROM [facility] CALLED TODAY TO SAY THEY CAN RESUME SERVICES FOR PATIENT WHEN DISCHARGED. [facility] P [phone]; FAX [phone]
--- NOTE | 2020-09-09 11:24 | NUR ---
WOUND CONSULT; ASESSMENT OF THE RIGHT ARM. THERE IS A LARGE SKIN TEAR. THERE IS NO S/S OF INFECTION. THE PERIWOUND IS WNL. APPLY SILVADINE, XEROFORM, FOAM DRESSING CHANGE M/W/F PRN. DISCUSSED WITH INEZ
--- NOTE | 2020-09-09 14:46 | NUR ---
ON-GOING ASSESSMENT: CM REVIEWED CHART AND SPOKE WITH PATIENT. PT HAS ORDERS TO DISCHARGE HOME TODAY WITH [facility]. CM NOTIFIED [facility] OF PATIENTS DISCHARGE AND FAXED ORDERS AND COFIRMED THEY RECEIVED THEM. PT REPORTS HER DAUGHTER WANTED TO TALK TO CM. GREG REACHED OUT TO PATIENTS DAUGHTER [phone] WHO REPORTS THEY MAY POSSIBLY BE INTERSTED IN PALLIATIVE CARE SOON. CM REACHED OUT TO [facility] WHO REPORTS THEY DO NOT OFFER PALLIATIVE CARE BUT STATE THEY CAN SEE PATIENT IN COLLABORATION WITH SOMEONE WHO DOES AND THEY STATE WOULD BE HAPPY TO START THAT CONVERSATION WITH FAMILY WHILE ON SERVICES WITH THEM. DAUGHTER AGREEABLE WITH PLAN. DAUGHTER PLANS ON PICKING UP PATIENT THIS AFTERNOON.
== END 2020-09-09 16:33 | disposition home health service (06) | DRG 299 ==
LOC: ER 11:04 → EROBS 13:36 → 2N 13:36 → 4S 09-09 00:29
PROVIDERS: Physician Assistant; ADMIT Hospitalist; ATTEND Hospitalist
DX: I82.412 Acute embolism and thrombosis of left femoral vein (principal); E43 Unspecified severe protein-calorie malnutrition; C18.9 Malignant neoplasm of colon, unspecified; I10 Essential (primary) hypertension; F32.9 Major depressive disorder, single episode, unspecified; E03.9 Hypothyroidism, unspecified; M19.90 Unspecified osteoarthritis, unspecified site; M81.0 Age-related osteoporosis without current pathological fracture; D64.9 Anemia, unspecified; R79.1 Abnormal coagulation profile; I82.4Z2 Acute embolism and thrombosis of unspecified deep veins of left distal lower extremity; Z87.440 Personal history of urinary (tract) infections; Z92.21 Personal history of antineoplastic chemotherapy; Z90.49 Acquired absence of other specified parts of digestive tract; Z98.84 Bariatric surgery status; Z79.899 Other long term (current) drug therapy; Z87.891 Personal history of nicotine dependence; Z68.37 Body mass index [BMI] 37.0-37.9, adult
CPT/HCPCS: 10194; 27000

== ENCOUNTER → 2020-10-07 | Outpatient (CLI) | payer OTHER ==
[~2020-10-07] MED LIST changes: +ELIQUIS5 MG PO; +KEFLEX500 M1 PO
== END ==
LOC: CAT 09:34
PROVIDERS: ATTEND Internal Medicine Hematology & Oncology
DX: C18.2 Malignant neoplasm of ascending colon (principal); C77.2 Secondary and unspecified malignant neoplasm of intra-abdominal lymph nodes; I25.10 Atherosclerotic heart disease of native coronary artery without angina pectoris; K76.0 Fatty (change of) liver, not elsewhere classified; K42.9 Umbilical hernia without obstruction or gangrene

== ENCOUNTER 2020-10-28 03:25 | Inpatient (IN) | payer OTHER ==
[2020-10-28] VITALS (8 sets, daily range): BP systolic 95–110; BP diastolic 51–68
[~2020-10-28] VITALS: Ht 162.6 cm; Wt 83.5 kg
[2020-10-28 05:02] LABS: URINE BILIRUBIN 1+ (Negative); URINE BLOOD TRACE (Negative); URINE CLARITY SL CLOUDY; URINE COLOR YELLOW; URINE GLUCOSE-RANDOM* NEGATIVE (Negative); URINE KETONES TRACE (Negative); URINE LEUKOCYTES-REFLEX TRACE (Negative); URINE NITRITE-REFLEX NEGATIVE (Negative); URINE PROTEIN (DIPSTICK) NEGATIVE (Negative); URINE SPECIFIC GRAVITY 1.025 (1.005-1.035)
[2020-10-28 05:03] LABS: ICTOTEST (BILI CONFIRMATORY) Positive (Negative)
[2020-10-28] MEDS ORDERED: TOLTERODINE TART4 MG PO (05:23)
[2020-10-28 05:58] LABS: ABSOLUTE NEUTROPHILS 3.6 thou/uL (1.4-8.2); BASOPHILS 0.3 % (0.0-2.0); EOSINOPHILS 1.4 % (0.0-3.0); HEMATOCRIT 34.2 % (37.0-47.0); HEMOGLOBIN 11.1 gm/dL (12.0-15.0); LYMPHOCYTES 19.4 % (24.0-44.0); MCH 30.6 pg (26.0-34.0); MCHC 32.5 g/dL (28.0-37.0); MCV 94.2 fL (80.0-100.0); MONOCYTES 6.1 % (1.0-8.0); PLATELET COUNT 227 thou/uL (150-400); POLYS 72.8 % (36.0-66.0); RBC 3.63 mil/uL (4.20-5.00)
[2020-10-28 06:06] LABS: CALCIUM 7.9 mg/dL (8.5-10.1); CREATININE 1.2 mg/dL (0.6-1.0)
[2020-10-28 06:13] LABS: ALBUMIN 1.7 g/dL (3.4-5.0); DIRECT BILIRUBIN 0.4 mg/dL (<0.1-0.2); MAGNESIUM 1.8 mg/dL (1.8-2.4); TOTAL PROTEIN 5.4 g/dL (6.4-8.2)
--- NOTE | 2020-10-28 09:41 | NUR ---
RESENT HANDOFF FORM REQUESTED BY FLOOR, REPORTED THAT THEIR PRINTER IS DOWN. WAS INSTRUCTED TO SEND HANDOFF TOOL TO 4N.LSR INSTEAD OF 4W.LSR ORIGINALLY COMPLETED.
--- NOTE | 2020-10-28 10:25 | NUR ---
VAT EVEALUATED PT IN ER, DR CORTÉS PRESENT AND WANTS IR TO PLACE LINE DUE TO EDEMA OF BOTH ARM. ORDER PLACED AND SPOKE TO IR REGARDING NEED FOR PLACEMENT BY THEIR DEPT.
--- NOTE | 2020-10-28 12:25 | NUR ---
Pt arrived to floor from emergency dept per cart at 1030 in stable condition. Admission hx, assessment and careplan completed.Vss but low bp noted which was normal for pt.Dtr assisted in answering questions and wanted residential case manager to assist with placement because pt spouse unable to care for pt at home.poolroom/poolhall manager notified.Pt left for picc/midline placement in IR upon admitted to floor.Will continue to monitor.
--- NOTE | 2020-10-28 14:52 | NUR ---
PT ADMITTED RELATED TO DEHYDRATION AND OCCULT BLOOD IN STOOL. CM REVIEWED CHART AND SPOKE WITH CARE TEAM. CM MET WITH PT AND DTR AT BEDSIDE THIS DAY. PT APPEARED TO BE A&O X4. PT'S DTR JANIE AT BEDSIDE. PT INDICATED SHE HAD BEEN AT HOME WITH HER SPOUSE ASHISH. PT AND DTR INDICATED THAT HOME SITUATION ISN'T IDEAL AND THAT THEY DON'T ANTICIPATE PT RETURNING HOME ONCE MEDICALLY STABLE. PT AND DTR INDICATED THAT THEY DON'T WANT MEDICAL INFORMATION SHARED WITH PT'S SPOUSE KAILEY AT THIS TIME THEY ALSO DON'T WANT PT VISITING. PT'S SPOUSE HAS CALLED UNIT MULTIPAL TIMES ALREADY TODAY. CM INFORMED HIM THAT AT THIS TIME PT DOESN'T WANT TEAM SHARING MEDICAL INFORMATION WITH HIM AND DOESN'T WANT HIM TO VISIT. HE IS FIXIATED ON PT'S DIRTY CLOTHES. CM NOTIFIED PT AND DTR. CM NOT NOTIFY SECURITY AND CARE TEAM THAT PT ISN'T WANTING PT TO VISIT. PT HAD BEEN HER NOT TOO LONG AGO AND HAD DISCHARGED HOME WITH [facility]. PT AND OT DISCHARGED LAST WEEK. PT AND DTR INDICATED THAT PT HAD NEEDED ASSISTANCE WITH TRANSFERS BACK INTO BED AND WITH [facility] AND OTHER ADLS. PT AND DTR INDICATED THAT PT'S SPOUSE WASN'T ASSISTING PT'S NEEDED PRIOR TO ADMISSION. CM TO PROVIDE PT AND DTR WITH IN NETWORK SKILLED FACILITIES AND TO HAVE PT ASSESSED FOR POSSIBLE [place] FOR POSSIBLE LTC. CM FOLLOWING REGARDING DC PLANNING.
--- NOTE | 2020-10-29 04:33 | NUR ---
PATIENT AOX4 MAKES NEEDS KNOWN.PATIENT DENIED PAIN OR DISCOMFORT. +4 EDEMA ON BLE AND +3 ON BUE, ENCOURAGED PATIENT TO ELEVATE BUE AND BLE. PATIENT ENCOURAGED FLUIDS. FALL PRECAUTION IN PALCE. PATIENT IN BED ASLEEP AT THIS TIME BREATHING REGULAR AND UNLABOURED.
[2020-10-29 04:45] VITALS: BP 85/48
--- NOTE | 2020-10-29 07:20 | HC ---
[facility] [address] CONSULTATION Name: EVELINE HUITRON Room #: 456-[facility] M.R.#: [id number] Admission: 10/28/20 Attend Phys: Frederick Root MD Discharge: Date of : 56 Report #: [id number] THIS REPORT FOR: cc: Rey Martines,Qasim Pedroza MD ~ PHYSICIAN REQUESTING CONSULT: Nurse practitioner Jonatan. REASON FOR CONSULTATION: History of stage 3 colon cancer. HISTORY OF PRESENT ILLNESS: The patient is a 60-year-old female brought to the hospital because of inability to take care of herself with the help of her . She had also reported fallen a few times and was in very poor living conditions by their description. We had previously seen her for the history of stage 3 node positive colon cancer in 02/2020. She had tried several cycles of chemotherapy, was unable to tolerate, and after a long discussion, we elected not to pursue additional chemotherapy. Her most recent imaging was in late 09/2020; at that time no evidence of recurrent disease was found. The patient currently denies any fevers, chills, does have leg swelling that is chronic in nature. No new diarrhea, no new constipation. She is not aware of any blood in her urine or stool. She is not aware of any shortness of breath or cough. She does admit to being weak. PAST MEDICAL HISTORY: Notable for the 3 node positive colon cancer, resected in 02/2020. She had a right hemicolectomy, 03/13/2020. She also has a history of arthritis, back pain, hypertension, hypothyroidism, cholecystectomy, also found to have a blood clot during admission in August. There was extensive left-sided DVT of the thigh and calf. She also has a history of hypothyroidism, bilateral leg edema. Etiology is not clear to this author. SOCIAL HISTORY: Former smoker. Rare to no alcohol, no street drugs. MEDICATIONS: At this time in the hospital currently include IV fluids. Note that as an outpatient, she had previously been receiving apixaban 5 b.i.d., duloxetine 30 mg daily, famotidine 40 daily, Synthroid 200 mcg daily, Skelaxin 800 mg daily, Zofran p.r.n. and Detrol-LA 4 mg capsule daily. PHYSICAL EXAMINATION: VITAL SIGNS: Height 5 feet 4, 162.6 cm. Weight 200 pounds or 90.7 kilograms. Blood pressure is 90/61, O2 sat 99%, respirations 14, pulse 85, afebrile at 98. Daughter is present during exam and history taking. NEUROLOGIC: Patient's face is symmetrical. Speech and thought pattern appear to be normal. She is moving her arms well. HEART: [place] [id number] CONSULTATION Name: EVELINE HUITRON Room #: 456-[facility] M.R.#: [id number] Admission: 10/28/20 Attend Phys: Frederick Root MD Discharge: Date of : 56 Report #: [id number] LUNGS: Anteriorly are clear, symmetric, unlabored without rhonchi or rales. LYMPHATICS: No enlarged lymph nodes in the supraclavicular, cervical, axillary or groin regions. ABDOMEN: Obese. No definite masses, nontender. EXTREMITIES: Do have chronic edema and also has some wounds and ecchymosis and a few small skin tears. ASSESSMENT AND PLAN: 1. History of stage 3 node positive colon cancer from 03/2020. Not known to be recurrent. Recently imaged 3 weeks ago, not known to be recurrent. No additional therapy at this time. 2. Weakness. The patient says that they had considered hospice, but I am not sure what her terminal illness is to qualify, but will defer to others and social work. Rehab services to see. 3. History of pulmonary embolism and clots. 4. History of deep vein thrombosis. We will most likely need to continue apixaban. 5. History of hypothyroid, continues replacement. 6. Mood disorder, most likely continue Cymbalta. 7. Leg swelling, unclear etiology. 8. Bladder difficulties, may consider restarting Detrol. We will follow with you. <ELECTRONICALLY SIGNED> By: Qasim Bustillos MD 10/29/20 0720 [id number] Qasim Bustillos MD /nt
[2020-10-29 12:30] LABS: CALCIUM 7.6 mg/dL (8.5-10.1); CREATININE 1.2 mg/dL (0.6-1.0); MAGNESIUM 1.5 mg/dL (1.8-2.4); POTASSIUM 3.3 mmol/L (3.5-5.1)
[2020-10-29 12:33] LABS: ABSOLUTE NEUTROPHILS 2.4 thou/uL (1.4-8.2); BASOPHILS 0.8 % (0.0-2.0); EOSINOPHILS 2.3 % (0.0-3.0); HEMATOCRIT 27.4 % (37.0-47.0); LYMPHOCYTES 28.9 % (24.0-44.0); MCH 30.7 pg (26.0-34.0); MCHC 32.2 g/dL (28.0-37.0); MCV 95.3 fL (80.0-100.0); MONOCYTES 8.2 % (1.0-8.0); PLATELET COUNT 180 thou/uL (150-400); POLYS 59.8 % (36.0-66.0); RBC 2.87 mil/uL (4.20-5.00); RDW 16.7 % (10.5-14.5); WBC 3.9 thou/uL (4.0-11.0)
[2020-10-29 12:38] LABS: HEMOGLOBIN 8.8 gm/dL (12.0-15.0)
--- NOTE | 2020-10-29 14:37 | NUR ---
Assumed pt care at 7am.Pt in bed sleeping without distress s/s at the beginning of shift.Woke up at 0830 for breakfast.Assisted with tray setup.Fair appetite noted.Lynphedema wrap and massage done by occupation therapist.Pt tolerated meds. Repositioned for comfort.Dr Root here,no new order noted. global transportation manager still working on placement.No verbal c/o.Fall bundle in place. Will continue to monitor.
--- NOTE | 2020-10-29 14:53 | NUR ---
CM PROVIDED PT WITH LIST OF IN NETWORK FACILITIES TO REVIEW. SHE INDICATED HER DTR WOULD BE HERE AFTER SCHOOL AND WOULD REVIEW IT WITH HER. CM TO FOLLOW UP WITH PT AND DTR. SPOUSE CALLED UNIT AGAIN TODAY, CM AGAIN NOTIFIED STAFF THAT PT DOENS'T WANT INFORMATION SHARED WITH HIM. CM FOLLOWING REGARDING DC PLANNING.
[2020-10-29 20:11] VITALS: BP 90/56
--- NOTE | 2020-10-30 02:51 | NUR ---
PT CARE ASSUMED WITH PT IN BED FINISHING UP DINNER .PT IS A/O X4.PT IS UP X2 ASSIST TO BSC.PT HAS SCTACHES,REDNESS AND WOUND DRESSED ARMS .PT HAS A FOLEU CATHETER IN PLACE.PT HAS A PICC LINE DOUBLE LUMEN ON RT UA.PT INFORMED NURSE TO TO GIVE ANY IMFORMATION ABOUT HER TO KAILEY(FATOU)..PT APPEARED TO BE IN NO ACUTE DISTRESS.WILL CONTINUE TO MONITOR PER POC
[2020-10-30 05:16] VITALS: BP 96/52
[2020-10-30 07:15] VITALS: BP 91/53
[2020-10-30 08:05] VITALS: BP 91/53
--- NOTE | 2020-10-30 14:53 | NUR ---
CM FOLLOWED UP WITH PT AND DTR JANIE THIS AM. THEY INDICATED THAT THEY WERE FILIING A RESTRAINING ORDERS AGAINST PT'S SPOUSE. DTR INDICATED THAT THEY WERE GOING TO FOLLOW UP WITH BIANCA HASKINS LATER THIS AFTERNOON. PT AND DTE INDICATED THAT THEY WANTED REFERRALS SENT TO [facility] FOR REVIEW FOR POSSIBLE ADMISSION. CM PROVIDED DTR WITH [employer] AND NOTIFIED [facility] THAT THEY ARE INTERESTED IN COMPLETEING A [place] APPLICATION. CM FOLLOWING REGARDING DC PLANNING.
[2020-10-30 15:56] VITALS: BP 87/54
--- NOTE | 2020-10-30 16:31 | NUR ---
ASSUMED PT CARE AROUND 0715. PT ALERT X ORIENTED X4. ON ROOM AIR. UP WITH 2 X PERSON ASSIST. IV RT UA/PICC LINE DOUBLE LUMEN. DRESSING CHANGE DONE TODAY. INCONTINENCE OF BB. WESTBROOK IN PLACE.SCRATCHES ON HANDS FROM CAT (BOADER FOAM DRESSING).B/L EDEMA OF EXTREMITIES. OT DOING WRAPPING OF LEGS FOR EDEMA. PT'S DAUGHTER IN THE ROOM. PT DOES'NT WANT ANYTHING ABOUT HER TO BE REVEALED TO HER . COVID TEST RESULT PENDING (NASAL SWAB COLLECTED AND SEND TO LAB AROUND 1630). FALL PRECAUTION IN PLACE. CALL LIGHT IN REACH. WILL CALL APPROPRIATELY. WILL CONTINUE TO MONITOR.
--- NOTE | 2020-10-30 16:37 | NUR ---
FAXED REFERRAL TO [facility] RECEIVED CONFIRMAITON AND LEFT MSG WITH ADM. FAXED REFERRAL TO [facility] RECEIVED CONFIRMATION SPOKE WITH ADM SHE RECEIVED REFERRAL AND WILL REVIEW. FAXED REFERRAL TO [facility] RECEIVED CONFIRMATION AND LEFT MSG WITH ADM.
[2020-10-30 22:04] VITALS: BP 100/75
[2020-10-31 05:50] LABS: HEMATOCRIT 34.3 % (37.0-47.0); MCH 30.5 pg (26.0-34.0); MCHC 32.3 g/dL (28.0-37.0); MCV 94.3 fL (80.0-100.0); RBC 3.64 mil/uL (4.20-5.00); RDW 16.8 % (10.5-14.5); WBC 5.5 thou/uL (4.0-11.0)
[2020-10-31 06:02] LABS: HEMOGLOBIN 11.1 gm/dL (12.0-15.0)
[2020-10-31 06:23] LABS: CALCIUM 7.8 mg/dL (8.5-10.1); CREATININE 1.3 mg/dL (0.6-1.0); POTASSIUM 3.6 mmol/L (3.5-5.1)
[2020-10-31 07:20] VITALS: BP 93/56
[2020-10-31 07:45] VITALS: BP 93/56
[2020-10-31 15:45] VITALS: BP 99/66
[2020-10-31 16:30] VITALS: BP 99/63
--- NOTE | 2020-10-31 16:31 | NUR ---
PT CARE ASSUMED AT 0700. ASSESSMENTS CHARTED. MEDICATIONS CHARTED. IVELISSE 2L PICC. SINUS RHYTHM. MED/SURG TELEMETRY. COVID NEGATIVE. LYMPHEDEMA WRAPS BLE. [facility]APID RESPONSE CALLED AT 1440; ASSISTING PT BACK TO BED AFTER BM AND PT FROZE UP, APPEARED TO BE AN ABSENCE SEIZURE, PT WOULD NOT RESPOND EYES FIXED STRAIGHT AHEAD. DR CHOWDHURY THOUGHT IT MORE LIKELY THAT SHE VAGALED DOWN. PT RECIEVED A BOLUS OF 500 ML 0.9% NS. PT TRANSFERRED TO [facility] AND PLACED ON A HUNTER SKIN DIVER.
--- NOTE | 2020-10-31 16:44 | NUR ---
PT HAD RAPID CALLED THIS AFTERNOON. PT'S ROOM WAS CHANGED FROM [phone] FOR TELEMETRY. PT'S DTR WAS AT BEDSIDE. CM SPOKE WITH [facility] AND THEY INDICATED THAT HOSPITAL NEEDS TO SUBMIT REQUEST THROUGH FOR SKILLED AUTH. CM ISN'T FAMILIAR WITH THIS PROCESS CM WILL FIND OUT. IF [facility] DOESN'T COVER PT WOULD BE PP AND THEY WOULD NEED $7,293 UP FRONT. CM FOLLOWING REGARDING DC PLANNING.
--- NOTE | 2020-10-31 17:07 | NUR ---
Pt. had a syncopal episode-WELT BUTTER HAND activate-see flowsheet
[2020-10-31 20:12] VITALS: BP 96/53
[2020-11-01 05:08] LABS: HEMATOCRIT 28.4 % (37.0-47.0); HEMOGLOBIN 9.2 gm/dL (12.0-15.0); MCH 30.8 pg (26.0-34.0); MCHC 32.3 g/dL (28.0-37.0); MCV 95.6 fL (80.0-100.0); RBC 2.97 mil/uL (4.20-5.00); WBC 3.9 thou/uL (4.0-11.0)
--- NOTE | 2020-11-01 05:12 | NUR ---
Pt. rested quietly during the night when checked on during frequent rounds. Upon initial assessment patient was lethargic, but now she is more alert. Oriented times four. She offers no c/o pain or discomfort. Bilateral arms are edematous with small amount of seepage noted. Turned and repositioned. Bed alarm is on.
[2020-11-01 05:23] LABS: CALCIUM 7.7 mg/dL (8.5-10.1); CREATININE 1.2 mg/dL (0.6-1.0); POTASSIUM 3.3 mmol/L (3.5-5.1)
[2020-11-01 07:27] VITALS: BP 91/50
[2020-11-01 12:01] VITALS: BP 92/58
[2020-11-01 16:35] VITALS: BP 99/56
--- NOTE | 2020-11-01 18:30 | NUR ---
ASSUMED CARE OF PATIENT AT SHIFT CHNAGE. ASSESSMENT CHARTED. MEDS ADMINISTERED PER EMAR. VSS. PATIENT IS A&OX4 AND ABLE TO MAKE NEEDS KNOWN. PATIENT IS UPX1 TO BSC AND TOLERATING WELL THIS SHIFT. OT COMPLETED WRAPS FOR LYMPHADEMA THIS SHIFT. PATIENT IS MEDICALLY STABLE FOR DISCHARGE; NO NEW EVENTS NOTED. HEART RATE DOES INCREASE W EXERTION. PROVIDER NOTIFIED. PATIENT VOICED NO FURTHER NEEDS. WILL CONTINUE TO MONITOR AND FOLLOW PLAN OF CARE
[2020-11-01 20:16] VITALS: BP 100/58
--- NOTE | 2020-11-02 06:01 | NUR ---
ALERT AND ORIENTED. SLEPT THE WHOLE NIGHT. WESTBROOK WITH DARK YELLOW OUTPUT. NO BM. REPOSITIONING PROVIDED. PT DENIES PAIN.LYMPHEDEMA DRSG TO BLE, ARMS WITH GENENALISED SWELLING WITH WEEPING, ELEVATION PROVIDED.PT SWALLOWS MEDS WHOLE, NO PROBLEM. BP REMAINS ON THE SOFTER SIDE, MIDODRINE ON BOARD-AFEBRILE. BEEN ON /NC BUT THIS AM@ 0530 PLACED ON ROOM AIR TO SEE HOW SHE DOES. PT DENIES COUGH OR SOA.PT REMAINS WEAK AND ILL APEARING BUT IS PLEASANT AND CONVERSATIONAL.CALL LIGHT WITHIN REACH.
[2020-11-02 07:36] VITALS: BP 96/47
--- NOTE | 2020-11-02 11:25 | NUR ---
Assumed pt care at 7am.Assessment completed.vss. Am meds given with breakfast and well tolerated.Pt has poor appetite but encouraged to eat and drink.Dr Saldaña here,no new order noted.Pt still waiting for placement.Pt in bed resting will continue to monitor.
[2020-11-02 19:44] VITALS: BP 90/52
--- NOTE | 2020-11-03 02:43 | NUR ---
PT CARE ASSUMED WITH PT IN BED WATCHING TV AT 1900.PT IS A/O X4.PT IS UP WITH MAX ASSIST TO BSC AND CHAIR.PT BLE WRAPPED UP.PT IS Q2 TURN.PT HAS A WESTBROOK CATHETER IN PLACE.IV ACCESS RT UA PICC LINE DOUBLE LUMEN SL.PT TAKE MEDS WHOLE WITH NO ISSUES.WILL CONTINUE TO MONITOR PER POC
[2020-11-03 05:08] VITALS: BP 89/55
[2020-11-03 07:20] VITALS: BP 87/52
--- NOTE | 2020-11-03 15:04 | NUR ---
ASSUMED CARE OF PT AT 0700 THIS MORNING. PT WAS ADMITTED FOR SEVERE DEHYDRATION AND OCCULT BLOOD IN STOOL. PT IS A/OX4 AND STATES SHE DOES NOT WANT HER TO KNOW ANY INFO ABOUT HER CONDITION. SKIN IS W/D/P, EYES PERRLA. LUNGS ARE CLEAR IN ALL LOBES AND NO OTHER ISSUES NOTES. ASSESSMENT OTHERWISE UNREMARKABLE. CALL LIGHT AND OTHER NEEDS WITHIN REACH AND PICC IN RIGHT ARM.
[2020-11-03 15:32] VITALS: BP 125/70
[2020-11-03 15:38] VITALS: BP 93/52
--- NOTE | 2020-11-03 17:49 | NUR ---
Agree with FAVIAN Salas's assessment.
[2020-11-03 20:03] VITALS: BP 96/58
--- NOTE | 2020-11-04 02:20 | NUR ---
PT CARE ASSUMED WITH PT IN BED WATCHING TV AT 1900.PT IS A/O X4.PT DENIED PAIN,N/V/D.PT BOBBY LE WRAPPED .PT HAS A WESTBROOK CATHETER IN PLACE PATTERN.IV ACCESS RT UA PICC LINE DOUBLE LUMEN.PT HAS BRUISING BUE.PT WOUND ON LT FA WITH BOREDER FOAM DRESSING.PT AWAITING PLACEMENT.
[2020-11-04 04:57] VITALS: BP 92/55
[2020-11-04 06:06] LABS: HEMATOCRIT 25.9 % (37.0-47.0); HEMOGLOBIN 8.5 gm/dL (12.0-15.0); MCH 30.9 pg (26.0-34.0); MCHC 32.8 g/dL (28.0-37.0); MCV 94.2 fL (80.0-100.0); RBC 2.75 mil/uL (4.20-5.00); RDW 17.3 % (10.5-14.5); WBC 4.2 thou/uL (4.0-11.0)
[2020-11-04 06:16] LABS: CALCIUM 7.3 mg/dL (8.5-10.1); POTASSIUM 3.6 mmol/L (3.5-5.1)
[2020-11-04 07:41] VITALS: BP 96/52
[2020-11-04 11:25] VITALS: BP 86/52
--- NOTE | 2020-11-04 12:14 | NUR ---
CM CONTACTED [facility] AND THEY INDICATED THAT AN INPATIENT REQUEST FORM NEEDED TO BE COMPLETED. CM FOUND FORM ON WEBSITE, COMPLETED IT, AND FAXED IT TO [facility] FAX. INITIATING REQUEST FOR INPATIENT SKILLED AUTH. CM FOLLOWING REGARDING DC PLANNING.
[2020-11-04 15:11] VITALS: BP 96/55
--- NOTE | 2020-11-04 15:26 | NUR ---
PT ALERT AND ORIENTED. HAD LOW BP THIS SHIFT. SCHEDULED MIDODRINE GIVEN SCHEDULED. PT DENIED HAVING PAIN OR DISCOMFORT. EVALUATED BY PT/OT. NO CONCERNS AT THIS TIME. PT PROGRESSING SLOWLY TOWARDS DISCHARGE GOAL.
[2020-11-04 20:01] VITALS: BP 96/56
--- NOTE | 2020-11-05 05:39 | NUR ---
Assumed pt care at 1900. A/OX4,VSS. Denies pain on assessment. Webber patent to DD with yellow urine noted. No BM noted this shift. Dressings in place to BLE. RUE PICC in place and patent. Fall precautions in place,calls approp for help. Resting quietly at this time,will continue to monitor pt.
[2020-11-05 06:11] VITALS: BP 90/49
[2020-11-05 07:21] VITALS: BP 90/52
--- NOTE | 2020-11-05 13:45 | NUR ---
CM FAXED CLINICAL UPDATE TO ADMISSIONS AT [facility]. CM CALLED AND LEFT VM WITH ADMISSIONS THERE WELL. STILL AWAITING CABRERA HERNANDEZ FOR SKILLED AT [facility].
[2020-11-05 15:11] VITALS: BP 89/52
--- NOTE | 2020-11-05 17:01 | NUR ---
ASSUMED CARE OF PATIENT AT SHIFT CHANGE. ASSESSMENT CHARTED. MEDS GIVEN PER MAR. VSS. PATIENT IS A&OX4 AND ABLE TO MAKE NEEDS KNOWN. VITALS REMAIN STABLE; BP MAINTENANCE MED ADMINISTERED SCHEDULED. PATIENT SAW OT THIS AM FOR LYMPHAEDEMA; REDRESSED BLE & PROVIDED RETROGRADE MASSAGE. PATIENT EXPRESSED WANTING TO REMOVE WESTBROOK; PROVIDER NOTIFIED. PATIENT UP TO BSC X1 ASSIST AND PROGRESSING PHYSICALLY. PATIENT REMAINS MEDICALLY STABLE FOR DISCHARGE; ONLY AWAITING AUTHORIZATION. DENIES PAIN OR DISCOMFORT AND VOICES NO FURTHER NEEDS. WILL CONTINUE TO MONITOR AND FOLLOW PLAN OF CARE
[2020-11-05 19:57] VITALS: BP 90/50
--- NOTE | 2020-11-06 04:31 | NUR ---
Assumed pt care at 1900. A/OX4,VSS.Denies pain on assessment. Up with moderate assist to BSC,BM soft this shift. PICC patent to RUE,bruising/edema around side. Edema on BUE,encouraged to keep extremities elevated. BLE dsg C/D/I. Fall precautions in place,calls approp for help. Resting quietly at this time w/o any distress noted. Will continue to monitor pt.
[2020-11-06 06:14] VITALS: BP 99/57
[2020-11-06 08:00] VITALS: BP 85/50
--- NOTE | 2020-11-06 12:03 | NUR ---
CM RECEIVED VM FROM ADMISSIONS AT [facility] YESTERDAY AFTERNOON AND THEY INDICATED THAT THEY HAD RECEOVED UPDATED CLINICAL CM HAD FAXED OVER. THEY ASKED IF THERE WAS ANYTHING THAT THEY NEEDED TO DO AT THIS TIME BUT THAT THEY WERE STILL ACCEPTING HER AUTH AND THAT THEY STILL DON'T KNOW THE PROCESS. CALLED AND FOLLOWED UP WITH CABRERA THIS AM. THEY INDICATED THAT THEY HAD APPEARED TO HAVE RECEIVED THE CLINICAL AND INPATIENT AUTH REQUEST FORM WEDNESDAY WHEN CM FAXED BUT THAT IT DIDN'T LOOK LIKE IT HAD BEEN PROCESSED FOR AN AUTH. THEY INDICATED THEY WOULD PUT IN A REQUEST FOR AN EXPIDATED AUTH. CM AWAITING DETERMINATION.
--- NOTE | 2020-11-06 19:20 | NUR ---
Assumed pt care at 7am.Pt in bed sleeping on and off.Assessment completed.vss. But low bp noted.Assisted with tary setup at all meals.Poor appetite noted but drank ensure at all meals.Repositioned in bed q2h for comfort. Pt still waiting for authorization for dc to snf.Fall bundle in place.Will continue to monitor.
[2020-11-06 19:38] VITALS: BP 94/51
--- NOTE | 2020-11-07 02:18 | NUR ---
PROGRESS PT A/O X4. DENIES PAIN BP REMAINS HYPOTENSIVE BUT PT IS ASYMPTOMATIC. AWAKE WATCHING TV MOST OF SHIFT APPEARS RELAXED AND COMFORTABLE. BOTH LEGS WITH LYMPHEDEMA WRAPS REMAIN C/D/I. GENERALIZED EDEMA NOTED WITH BRUISING TO PICC INSERTION SITE. LEFT ARM WITH OPEN AREA FROM SCRATCH FROM CART THAT IS COVERED WITH C/D/I DRESSING. ON RA UP WITH MAX ASSIST AND 2 [facility] AND WALKER TO [facility]. PLANS TO DC TO [facility] WHEN INSURANCE AUTHORIZATION OBTAINED.
[2020-11-07 06:32] VITALS: BP 81/41
[2020-11-07 07:45] VITALS: BP 92/48
--- NOTE | 2020-11-07 14:59 | NUR ---
STILL AWAITING CABRERA HERNANDEZ FOR PT TO DC TO [facility]. PT CAN'T RETURN HOME SHE CAN'T RECEIVED THE CARE SHE NEEDS IN THE HOME SETTING.
[2020-11-07 19:24] VITALS: BP 99/54
--- NOTE | 2020-11-08 03:36 | NUR ---
PT CARE ASSUMED WITH PT IN BED WATCHING TV AT 1900.PT IS A/O X4.PT IS UP WITH MAX ASSIST.PT HAD A BED BATH DURING SHIFT.PT DENIED PAIN,N/V/D.IV ACCESS IVELISSE PICC LINE DOUBLE LUMEN SL.PT IS INCONTINENT TO B/B. WILL CONTINUE TO MONITOR PER POC
[2020-11-08 05:05] VITALS: BP 100/63
[2020-11-08 06:07] LABS: HEMATOCRIT 25.3 % (37.0-47.0); HEMOGLOBIN 8.4 gm/dL (12.0-15.0); MCH 31.4 pg (26.0-34.0); MCHC 33.3 g/dL (28.0-37.0); MCV 94.5 fL (80.0-100.0); RBC 2.68 mil/uL (4.20-5.00); WBC 3.2 thou/uL (4.0-11.0)
[2020-11-08 06:10] LABS: CALCIUM 7.5 mg/dL (8.5-10.1); CREATININE 0.9 mg/dL (0.6-1.0); POTASSIUM 3.7 mmol/L (3.5-5.1)
[2020-11-08 07:24] VITALS: BP 92/54
[2020-11-08 11:12] VITALS: BP 111/59
--- NOTE | 2020-11-08 11:43 | NUR ---
STILL AWAITING CABRERA HERNANDEZ OF THIS NOTE. CM MET WITH PT AND HER DTR JANIE AT BEDSIDE THIS DAY AND NOTIFIED THEM OF THIS. THEY ARE AWARE AND UNDERSTANDING. PT AND DTR AGAIN INDICATED THAT PT CAN'T GO TO ANY OTHER SETTING TO GET THE CARE SHE NEEDS. AWAITING CABRERA HERNANDEZ FOR PT TO DC TO [facility]. CM FOLLOWING REGARDING DC PLANNING.
[2020-11-08 15:41] VITALS: BP 90/53
--- NOTE | 2020-11-08 19:50 | NUR ---
Assumed pt care at 7am.Pt in bed sleeping on and off.Assessment completed.vss. Pt tolerated meds but has poor appetite.Pt loves drinking ensure only.Dr Saldaña here,no new order noted.Pt still waiting for placement authorization.No verbal c/o.Will continue to monitor.
--- NOTE | 2020-11-09 07:31 | NUR ---
PT WAS OBSERVED LYING DOWN ON HER BED WITH HER EYES CLOSED AT SHIFT CHANGE.PO FLUIDS ENCOURAGED.Q2 TURN.EDEMA NOTED TO HER BOBBY ARMS.REDNNESS TO HER BUTTOCK,ZGUARD WITH EACH INCONTINENCE.REPORT TO AM NURSE.
[2020-11-09 07:45] VITALS: BP 92/53
[2020-11-09 16:15] VITALS: BP 144/89
--- NOTE | 2020-11-09 16:35 | NUR ---
ASSUMED CARE OF PATIENT AT SHIFT CHANGE; APPROX 0709. ASSESSMENT CHARTED. MEDICATIONS ADMINISTERED PER EMAR. VSS. PATIENT IS A&OX4 AND MAKES NEEDS KNOWN. PATIENT DENIES PAIN. PATIENT CONTINUES TO HAVE EDEMA ON ALL EXTREMITIES; LYMPHAEDEMA WRAPS IN PLACE AND C/D/I. VAC TEAM CHECKED PICC LINE AND VERIFIED PATENCY. PATIENT MEDICALLY STABLE AND STILL AWAITING AUTHORIZATION FOR DISCHARGE. PATIENT DENIES ANY FURTHER NEEDS. WILL CONTINUE TO MONITOR AND FOLLOW PLAN OF CARE
[2020-11-09 19:43] VITALS: BP 92/33
--- NOTE | 2020-11-10 01:30 | NUR ---
ASSESSED AT START OF SHIFT. PT A&OX4 DENIES PAIN, N/V. PT REPOSITIONED FOR COMFORT AND KYRLEX APPLIED TO RT ARM DUE TO DRAINAGE/ LYMPEDEMA. DRESSING IN BOBBY LOWER LEGS INTACT. EVENING MEDS GIVEN WHOLE WITH WATER. FOLLEY TO D/D FALL PREC IN PLACE AND CALL LIGHT AT REACH WILL CONT TO MONITOR.
[2020-11-10 05:55] VITALS: BP 91/52
[2020-11-10 16:20] VITALS: BP 92/55
--- NOTE | 2020-11-10 17:00 | NUR ---
ASSUMED PT CARE AROUND 0710. PT ALERT X ORIENTED X 4.ON ROOM AIR. NO C/O PAIN. PICC LINE RT UA, DOUBLE LUMEN/SALINE LOCKED.EDEMA OF LOWER EXTREMETIES, THERAPY (OT) WRAPPED IT. REDNESS OF THE BUTTOCK AREA, Z GUARD APPLIED. HAD AN INVOLUNTARY BM ON BED.SKIN TEAR ON LF HAND IS COVERED. 2X PERSON ASST. CALL LIGHT IN REACH. WILL CALL APPROPRIATELY. WILL CONTINUE TO MONITOR.
[2020-11-10 19:34] VITALS: BP 101/56
--- NOTE | 2020-11-11 02:56 | NUR ---
ASSESSED AT START OF SHIFT. PT RESTING IN BED. EVENING MEDS GIVEN. PO FLUIDS ALSO PROVIDED. PT INCONTINENT OF BOWEL AND BLADDER. HAD A BOWEL SMUDGE ON PAD UNABLE TO COLLECT STOOL LIGHT BROWN COLOR STOOL NOTED. PERICARE GIVEN AND ZYGARD CREAM APPLIED ON BUTTOCK. BOBBY LOWER EXT WRAP IN PLACE. PT DENIES N/V. FALL PREC MAINTAINED. CALL LIGHT AT REACH AND WILL CONT TO MONITOR.
[2020-11-11 07:29] LABS: HEMATOCRIT 23.9 % (37.0-47.0); HEMOGLOBIN 7.7 gm/dL (12.0-15.0); MCH 31.3 pg (26.0-34.0); MCHC 32.4 g/dL (28.0-37.0); MCV 96.6 fL (80.0-100.0); RBC 2.47 mil/uL (4.20-5.00); RDW 18.6 % (10.5-14.5); WBC 2.7 thou/uL (4.0-11.0)
[2020-11-11 07:32] LABS: CALCIUM 7.4 mg/dL (8.5-10.1); CREATININE 0.9 mg/dL (0.6-1.0); MAGNESIUM 1.5 mg/dL (1.8-2.4); POTASSIUM 3.8 mmol/L (3.5-5.1)
[2020-11-11 07:48] VITALS: BP 102/58
--- NOTE | 2020-11-11 12:39 | NUR ---
RN agrees with [employer] ARCHITECT assessment.
--- NOTE | 2020-11-11 14:44 | NUR ---
ASSUMED CARE OF PATIENT AT SHIFT CHANGE. ASSESSMENT CHARTED. MEDICATIONS ADMINISTERED PER EMAR. VSS. PATIENT IS A&OX4 AND MAKES NEEDS KNOWN. PATIENT IS HERE AWAITING PLACEMENT TO [facility]. PATIENT IS ABLE TO TRANSFER FROM BED TO C WITH 1 PERSON ASSIST BUT IS REQUESTING USE OF A BEDPAN THIS SHIFT. PATIENT DID WORK WITH OT THIS SHIFT AND HAD A BM; THIS NURSE WAS UNAWARE BUT DID MAKE IT KNOWN TO AUXILLARY STAFF TO NOTIFY OF ANY BOWEL MOVEMENT HOWEVER IT WAS NOT COMMUNICATED AND NOT COLLECTED. PATIENT HAS LYMPHAEDEMA ON ALL EXTREMITIES; BLE WRAPPED AND HAS OT TO PROVIDE CARES AND MASSAGES. PICC ON R UA FLUSHING WELL AND DRAWS BACK BLOOD. PATIENT OFFERED REPOSITIONING Q2HS; REFUSES AT TIMES. EXCORIATION TO L BUTTOCK DRESSED W ZGUARD. ON ROOM AIR. FALL PRECAUTIONS IN PLACE. WILL CONTINUE TO MONITOR AND FOLLOW PLAN OF CARE
[2020-11-11 19:40] VITALS: BP 112/45
--- NOTE | 2020-11-12 06:48 | NUR ---
RECEIVED CARE OF THIS PATIENT AT 1900. PATIENT ALERT AND ORIENTED X4. DENIES PAIN. USES BEDPAN AND BSC. NO BLOODY STOOLS NOTED THIS SHIFT. HAS LYMPH WRAPS ON LOWER EXT. SLEPT MOST OF SHIFT.
[2020-11-12 07:35] VITALS: BP 98/68
[2020-11-12 12:08] LABS: ABSOLUTE RETIC COUNT 0.1098 10^6/uL; HEMATOCRIT 30.8 % (37.0-47.0); MCH 31.9 pg (26.0-34.0); MCHC 32.5 g/dL (28.0-37.0); MCV 98.2 fL (80.0-100.0); OBSERVED RETIC COUNT 3.5 % (0.6-2.6); RBC 3.14 mil/uL (4.20-5.00); RDW 18.8 % (10.5-14.5); WBC 5.4 thou/uL (4.0-11.0)
--- NOTE | 2020-11-12 15:11 | NUR ---
ASSUMED CARE OF PT AT 0700 THIS MORNING. PT WAS ADMITTED FOR WEAKNESS AND OCCULT BLOOD IN STOOL. PT HAS HAD LOW HGB COUNTS AND IS TO BE SCHEDULED FOR TESTS TOMORROW MORNING. PT IS A/OX4, EYES PERRLA, LUNGS ARE CLEAR IN ALL [place]. SKIN IS INTACT WITH EDEMA NOTED IN ALL 4 EXTREMETIES. ABD SOFT/NONTENDER. CR<3SEC X4. ASSESSMENTS ARE OTHERWISE UNREMARKABLE. CALL LIGHT AND OTHER NEEDS WITHIN REACH.
--- NOTE | 2020-11-12 15:17 | NUR ---
GREG HEARD FROM [place] WITH CABRERA THIS AFTERNOON SHE INDICATED THAT SHE WAS PROCESSING PT AUTH REQUEST FOR SKILLED. SHE STATED THAT SHE HAD BEEN OUT AND THE NO ONE HAD BEEN MANAGING HER CASELOAD. CM PROVIDE HER THE NPI FOR [facility]. SHE INDICATED THAT SHE WOULD CONTACT CM WITH A DETERMINATION. GI TO SCOPE PT WEDNESDAY PT NEEDS TO BE OFF ELIQUIS. CM FOLLOWING REGARDING DC PLANNING.
[2020-11-12 15:25] VITALS: BP 98/62
--- NOTE | 2020-11-12 16:17 | NUR ---
CM RECIEVED PC FROM [place] WITH [facility] AND SHE INDICATED THAT THEY WERE GIVING SKILLED AUTH FOR PT TO GO TO [facility]. CM ASKED HOW LONG THE AUTH WAS GOOD FOR AND SHE INDICATED THAT THEY INITIALLY AUTH 30 DAYS WITH REVIEW EVERY 7 DAYS. CM INDICATED THAT PT'S HGB IS LOW AND THAT SHE IS TO HAVE SCOPES ON WEDNESDAY. SHE INDICATED THAT IS FINE THAT THE AUTH STARTS UPON DC AND THAT SHE JUST NEEDS NOTIFIED OF DISCHARGE AT . CM NOTIFIED PT AND ATTEMPTED PC TO PT'S DTR. [place] INDICATED THAT SHE WAS FAXING SKILLED AUTH LETTER TO [facility]. CM TO FOLLOW UP WITH THEM IN THE AM.
[2020-11-12 19:45] VITALS: BP 111/54
--- NOTE | 2020-11-13 02:30 | NUR ---
PT CARE ASSUMED AT 1900 WITH PT IN BED WATCHING TV.PT IS A/O X4.PT IS UP WITH X2 ASSIST.PT IS INCONTINENT TO B/B.PT HAS WRAP BLE FOR LYMPHEDEMA.PT IS ON ROOM AIR.IV ACCESS ON RT UA PICC DOUBLE LUMEN.PT PLAN TO HAVE COLONOSCOPY/EGD WEDNESDAY.TEAR ON LT FA HAS BORDER FOAM DRESSING.WILL CONTINUE TO MONITOR
[2020-11-13 05:01] VITALS: BP 100/65
[2020-11-13 07:38] VITALS: BP 99/58
[2020-11-13 15:32] VITALS: BP 101/57
--- NOTE | 2020-11-13 15:44 | NUR ---
CM CALLED [facility] AND SPOKE WITH ADMISSIONS THERE. CM INDICATED THAT CM HAD HEARD FROM [place] WITH [facility] AND SHE INDICATED THAT SHE WAS FAXING THEM LETTER OF SKILLED AUTH. SHE INDICATED THAT THE DON HAD RECEIVED IT. CM INDICATED THAT PT IS TO HAVE A COLONOSCOPY AND EGD TOMORROW AND THAT PT MAY BE MEDICALLY STABLE TO DC AFTER OR WEDNESDAY. THEY INDICATED THAT IF THEY CAN'T GET PT ON THE EARLIER SIDE TOMORROW THEY WOULD PREFER TO HAVE HER ADMIT WEDNESDAY. CM TO CONVEY TO CARE TEAM. CM FOLLOWING REGARDING DC PLANNING.
--- NOTE | 2020-11-13 19:20 | NUR ---
Assumed pt care at 7am.Pt in bed sleeping at the start of shift till breakfast time.Pt woke up for am care and breakfast.Assessment completed.vss.Meds given as ordered and well tolerated.Pt on clear liq all day in prep for colonoscopy and egd in am.Pt transfered to chair after breakfast and partial bath given. Bowel prep started around 1600 as ordered.Pt will be npo after mn for procedure scheduled for am.Report off to [facility] nurse.
[2020-11-13 20:26] VITALS: BP 91/51
--- NOTE | 2020-11-14 04:19 | NUR ---
recieved report pt alert no c/o pain or discomfort. educated on bowel prep and procedure in am continues npo. after midnoc. pt finished prep about 2355. no bm noted at this time. will continue to monitor.
[2020-11-14 06:13] LABS: HEMATOCRIT 27.2 % (37.0-47.0); HEMOGLOBIN 8.9 gm/dL (12.0-15.0); MCH 31.5 pg (26.0-34.0); MCHC 32.6 g/dL (28.0-37.0); MCV 96.6 fL (80.0-100.0); RBC 2.81 mil/uL (4.20-5.00); WBC 4.5 thou/uL (4.0-11.0)
[2020-11-14 08:28] VITALS: BP 113/70
[2020-11-14 10:23] VITALS: BP 96/56
--- NOTE | 2020-11-14 13:38 | NUR ---
Assumed pt care at 7am.Pt in bed resting.Assessment completed.vss.Pt reported feeling tired and exhausted from bowel prep.Emotional support given.OT here and wrapped bilat. legs as ordered.Pt was npo for egd and colonoscopy.Dr Byrnes here,order noted.Pt left for procedure around noon.Will continue to monitor.
--- NOTE | 2020-11-14 15:00 | NUR ---
PT WENT DOWN FOR EGD AND COLONOSCOPY MID AFTERNOON THIS DAY. IT IS ANTICPATED THAT PT WILL BE MEDICALLY STABLE TO DISCHARGE TO [facility] TOMORROW. CM SPOKE WITH ADMISSIONS AT FACILITY AND THEY ARE AWARE AND ABLE TO ACCEPT. CM WILL NEED TO ARRANGE TRANSPORT.
[2020-11-14 16:17] VITALS: BP 80/49
[2020-11-14 17:15] VITALS: BP 89/58
--- NOTE | 2020-11-15 04:31 | NUR ---
PT DENIED PAIN SO FAR.SKIN TEAR NOTED TO HER BOBBY ARMS.PT STATED THAT THE SKIN TEAR TO HER L LOWER ARM WAS FROM HER EGD.DRSG DONE TO HER ARM.PT'S ARMS WEEPING,ELEVATED WITH PILLOW.PT INCONT OF B&B FLOWER CARE DONE,ZGUARD APLLIED TO HER BUTTOCKS.BLE LEGS LYMPHEDEMA WRAPS DRY AND INTACT.PT REPOSITIONED WHILE IN BED.CALL LIGHT WITHIN REACH.
[2020-11-15 04:56] LABS: ALBUMIN 1.5 g/dL (3.4-5.0); CALCIUM 7.8 mg/dL (8.5-10.1); CREATININE 1.1 mg/dL (0.6-1.0); MAGNESIUM 1.7 mg/dL (1.8-2.4); POTASSIUM 3.7 mmol/L (3.5-5.1); TOTAL BILIRUBIN 0.6 mg/dL (0.2-1.0); TOTAL PROTEIN 4.4 g/dL (6.4-8.2)
[2020-11-15 05:00] LABS: HEMATOCRIT 26.4 % (37.0-47.0); HEMOGLOBIN 8.7 gm/dL (12.0-15.0); MCH 32.1 pg (26.0-34.0); MCHC 33.2 g/dL (28.0-37.0); MCV 96.8 fL (80.0-100.0); RBC 2.72 mil/uL (4.20-5.00); RDW 18.2 % (10.5-14.5); WBC 4.3 thou/uL (4.0-11.0)
[2020-11-15 07:20] VITALS: BP 93/50
[2020-11-15] MEDS ORDERED: MIRALAX17 GM PO (08:49)
[2020-11-15] MEDS ORDERED: SYNTHROID125 MC1 PO (08:49)
[2020-11-15] MEDS ORDERED: MAGNESIUM400 MG PO (08:49)
--- NOTE | 2020-11-15 10:09 | NUR ---
WOUND CONSULT; THE PATIENT HAS S/S CONSISTANT WITH CELLULITIS TO THE LEFT FORARM. I REPORTED THIS TO RN WHO PICTURED THE AREA. THERE ARE A FEW SMALL AREAS OPEN AND DRAINING SEROSANGINOUS DRAINAGE. ERYTHEMA TO THE ENTIRE FORARM WITH WARMTH. THE PAITENT HAS MILD PAIN WELL. THE RN WILL INFORM THE DOCTOR TODAY. RECOMMEDNATIONS; XEROFORM GAUZE,ABD, TUBIGRIP DISCUSSED WITH RN
[2020-11-15] MEDS ORDERED: AUGMENTIN 875-1 EACH PO (11:58)
--- NOTE | 2020-11-15 13:29 | NUR ---
Received awake on bed. Due medications given as prescribed, able to swallow meds w/o difficulty. On room air. Vital signs stable. On MS, not on telemetry; no complains and signs of chest pain, crushing sensation and heaviness. Assisted in ADLs. Advanced diet to soft diet; previously on clear liquids due to GI procedure yesterday; tolerating well; no nausea, no vomiting and no abdominal pain noted. Incontinent of bladder, using bedside commode for bowel movements; max assist of 2, gait belt, walker; falls bundle in place. With R upper arm 2 lumen PICC line- saline locked. With bilateral LE lymphedema. Pt's daughter visited this AM- update given. Possible discharge today- a/w orders; CM informed. Pt seen and examined by wound nurse- wound care done, photo taken; pt with cellulitis- Dr Byrnes informed that pt will be needing antibiotics upon discharge- still a/w orders. CM informed that wound care orders and antibiotics included in discharge orders; a/w transport time to be set up- pt updated re: this.
--- NOTE | 2020-11-15 14:08 | NUR ---
PT HAD EGD AND COLONOSCOPY YESTERDAY. PT WAS SEEN BY WC THIS AM AND WAS STARTED ON AN ORAL ABX AND HAS NEW WC ORDERS. CARE TEAM INDICATED THAT PT IS MEDICALLY STABLE TO ND TO [facility] THIS DAY. CHART COPY ORDERD. CM ARRANGED [facility] TRANSPORT. TRANSPORT AROUND 1430. CM LEFT VM FOR PT'S DTR. PT IS AWARE AND AGREEABLE. NURSE GIVEN NUMBER FOR REPORT. NO OTHER CM INTERVENTION INDICATED. CM TO NOTIFY APS WORKER WHO HAD CALLED ON PT A WHILE BACK AND [place] WITH [facility]. CASE CLOSED.
--- NOTE | 2020-11-18 17:06 | PATH ---
[facility] [address] [place] [address] PATHOLOGY RPT PROCEDURE Name: PARTH HUITRONINE Room #: 454-P [facility] IN M.R.#: [id number] Admission: 10/28/20 Date of : 56 Discharge: 11/15/20 Report #: [id number] Path Case #: [id number] [facility] Accession Number: [id number] . 01 Material submitted: . colon - TRANSVERSE COLON POLYP. Modifiers: transverse . 01 Clinical history: . ANEMIA,POSITIVE HEMOCULT,HX OF CA DEHYDRATION,OCCULT POSITIVE STOOL,ANTICOAGULATED . 02 Diagnosis: Polyp, transverse colon polyp, endoscopic biopsy: - Hyperplastic polyp. - Negative for dysplasia. (IUV:ortho tech; 11/18/2020) MBR 11/18/2020 1630 Local . 02 Electronically signed: . Marie Mendoza MD, Pathologist NPI- [id number] . 01 Gross description: . Received in formalin labeled "Lordi, Cata and transverse colon polyp". Received is a bran-brown soft tissue fragment measuring 0.8 x 0.5 x 0.2 cm admixed with fecal material. The specimen is entirely submitted in cassette A1.(J; 11/15/2020) J/[facility] 11/18/2020 1630 Local . 02 Pathologist provided ICD-10: K63.5 . 02 CPT . [id number] Specimen Comment: A courtesy copy of this report has been sent to [phone] Specimen Comment: [id number], Specimen Comment: Report sent to ,DR LOVELL / DR LINN Performed at: [address], [place] [id number] MD Matais Jackson MD Phone: [phone] Performed at: [address] [id number] MD Marie Mendoza MD Phone: [phone]
== END 2020-11-15 14:53 | DRG 377 ==
LOC: ER 03:25 → 4W 07:57 → EROBS 07:57 → 4W 07:57
PROVIDERS: Emergency Medicine; Hospitalist; Internal Medicine; Internal Medicine Hematology & Oncology; Nurse Practitioner; ADMIT Internal Medicine; ATTEND Internal Medicine
DX: K92.1 Melena (principal); N17.0 Acute kidney failure with tubular necrosis; E43 Unspecified severe protein-calorie malnutrition; C18.9 Malignant neoplasm of colon, unspecified; D62 Acute posthemorrhagic anemia; Z20.822 Contact with and (suspected) exposure to COVID-19; E03.9 Hypothyroidism, unspecified; F32.9 Major depressive disorder, single episode, unspecified; E86.0 Dehydration; M19.90 Unspecified osteoarthritis, unspecified site; Z86.711 Personal history of pulmonary embolism; N18.9 Chronic kidney disease, unspecified; Z74.1 Need for assistance with personal care; E55.9 Vitamin D deficiency, unspecified; K76.89 Other specified diseases of liver; R53.81 Other malaise; N32.81 Overactive bladder; D50.9 Iron deficiency anemia, unspecified; R74.01 Elevation of levels of liver transaminase levels; I95.9 Hypotension, unspecified; K52.9 Noninfective gastroenteritis and colitis, unspecified; D63.8 Anemia in other chronic diseases classified elsewhere; E66.01 Morbid (severe) obesity due to excess calories; I12.9 Hypertensive chronic kidney disease with stage 1 through stage 4 chronic kidney disease, or unspecified chronic kidney disease; I95.1 Orthostatic hypotension; D17.79 Benign lipomatous neoplasm of other sites; Z90.49 Acquired absence of other specified parts of digestive tract; Z79.01 Long term (current) use of anticoagulants; Z86.718 Personal history of other venous thrombosis and embolism; Z87.891 Personal history of nicotine dependence; Z59.1 Inadequate housing; Z82.49 Family history of ischemic heart disease and other diseases of the circulatory system; Z68.31 Body mass index [BMI] 31.0-31.9, adult
CPT/HCPCS: 10040; 10045; 10047; 62110; 62900; 70005

== ENCOUNTER 2020-12-11 01:23 | Inpatient (IN) | payer OTHER ==
[~2020-12-11] VITALS: Ht 160 cm; Wt 81.2 kg
[~2020-12-11 01:23] MED LIST changes: +AUGMENTIN 875-1 EACH PO; +MAGNESIUM400 MG PO; +SYNTHROID125 MC1 PO; +TOLTERODINE TART4 MG PO
--- NOTE | 2020-12-11 05:20 | NUR ---
Pt. admitted to the unit from [facility]. She is alert and oriented. Pt. is oriented to staff and room. She offers no c/o pain.
[2020-12-11 06:41] LABS: HEMATOCRIT 28.1 % (37.0-47.0); HEMOGLOBIN 9.4 gm/dL (12.0-15.0); MCH 32.7 pg (26.0-34.0); MCHC 33.3 g/dL (28.0-37.0); MCV 98.1 fL (80.0-100.0); RBC 2.86 mil/uL (4.20-5.00); RDW 16.7 % (10.5-14.5)
[2020-12-11 07:41] VITALS: BP 91/57
[2020-12-11 08:29] LABS: ALBUMIN 1.5 g/dL (3.4-5.0); CALCIUM 7.9 mg/dL (8.5-10.1); CREATININE 1.9 mg/dL (0.6-1.0); MAGNESIUM 2.2 mg/dL (1.8-2.4); TOTAL BILIRUBIN 0.5 mg/dL (0.2-1.0); TOTAL PROTEIN 4.9 g/dL (6.4-8.2)
--- NOTE | 2020-12-11 12:19 | NUR ---
PT ADMITTED RELATED TO GI BLEED. CM REVIEWED CHART AND SPOKE WITH CARE TEAM. PT IS FAMILIAR TO CM FROM PREVIOUS ADMISSION. CM MET WITH PT AND DTR JANIE AT BEDSIDE THIS AM. PT APPEARED TO BE A&O X4. CM ROLE INTRODUCED. PT AND DTR INDICATED THAT PT HAD BEEN AT [facility] AND THAT SHE HAD JUST TRANSITIONED TO PT PATIENT PAY LTC FROM [facility] THERE THIS PAST WEDNESDAY PER PT'S DTR/DPOA. HOSPITALIST HAD MET WITH PT AND DTR/DPOA THIS AM AND THEY HAVE ELECTED TO NOT HAVE ANY KIND OF INTERVENTION AND ELECT HOSPICE/PALLIATIVE CARE SERVICES. CM MET WITH THEM AND THEY CONFIRMED THIS. THEY INDICATED THAT THEY HAD MET WITH THREE HOSPICE PROVIDERS YESTERDAY AND THAT THEY WANTED TO ELECT [facility] AND RETURN TO [facility]. CM SPOKE WITH ADMISSIONS AT THE FACILITY AND WITH HARI AT [facility]. CM FAXED CLINICAL TO BOTH. AWAITING DR. BETTS CONSULT. CM FOLLOWING REGARDING DC PLANNING.
--- NOTE | 2020-12-11 13:05 | NUR ---
ASSUMED PT CARE THIS AM. PT A&OX3, VSS. PATIENT HAS NO COMPLAINTS OF PAIN. REPORTS HAVING RECTAL BLEEDING. PATIENT PLACED ON TELEMETRY. PATIENT REMAINS INCONTINENT, CHANGING NECESSARY. PATIENT IS EDEMATOUS IN BILATERAL UPPER AND LOWER EXTREMETIES, WITH PITTING EDEMA NOTED IN HER FEET. PATIENT IS ON ROOM AIR. IV PATENT, FLUIDS INFUSING. PATIENT REPORTS NOT GETTING OUT OF BED FOR SEVERAL WEEKS. FALL PRECAUTIONS ARE IN [place], CALL LIGHT WITHIN REACH. WOUND PICTURES TAKEN FOR ADMISSION.
[2020-12-11] MEDS ORDERED: LORAZEPAM I2 MG/1 M2 SUBLING (14:53)
[2020-12-11] MEDS ORDERED: ZOFRAN 4 MG ORAL4 MG DISSOLVE (14:53)
[2020-12-11] MEDS ORDERED: MSL20MG/ML SUBLING (14:53)
[2020-12-11 15:25] VITALS: BP 96/53
== END 2020-12-11 17:55 | disposition hospice, home (50) | DRG 377 ==
LOC: 4W 01:23
PROVIDERS: Nurse Practitioner; Nurse Practitioner Family; ADMIT Internal Medicine; ATTEND Internal Medicine
DX: K92.2 Gastrointestinal hemorrhage, unspecified (principal); G93.41 Metabolic encephalopathy; E43 Unspecified severe protein-calorie malnutrition; N17.9 Acute kidney failure, unspecified; C18.9 Malignant neoplasm of colon, unspecified; E03.9 Hypothyroidism, unspecified; F32.9 Major depressive disorder, single episode, unspecified; N18.9 Chronic kidney disease, unspecified; M19.90 Unspecified osteoarthritis, unspecified site; E86.0 Dehydration; Z66 Do not resuscitate; I12.9 Hypertensive chronic kidney disease with stage 1 through stage 4 chronic kidney disease, or unspecified chronic kidney disease; Z74.1 Need for assistance with personal care; I95.1 Orthostatic hypotension; R53.81 Other malaise; E55.9 Vitamin D deficiency, unspecified; R63.0 Anorexia; Z68.31 Body mass index [BMI] 31.0-31.9, adult; Z90.49 Acquired absence of other specified parts of digestive tract; Z86.718 Personal history of other venous thrombosis and embolism; Z92.21 Personal history of antineoplastic chemotherapy; Z59.8 Other problems related to housing and economic circumstances; Z98.84 Bariatric surgery status; D64.89 Other specified anemias
CPT/HCPCS: 10047